=== PATIENT | female | born 1930 | race Caucasian/White ===

== ENCOUNTER 2017-01-12 16:00 | Emergency (ER) | payer MEDICARE, OTHER ==
[~2017-01-12] VITALS: Ht 165.1 cm; Wt 92.0 kg
[~2017-01-12 16:00] MED LIST: AMLO5TAB4 PO; ASPI-664 PO; ATOR20TA17 PO; Acetaminophen PO; BENZ-5 PO; CARV6.2545 PO; CLOP75TA27 PO; IPRA3AMP HHN; MECL-77 PO; PANT40TA4 PO; POTA8TAB2 PO; REPA2TAB6 PO; SPIR25TA NGT; SUCR1TAB27 PO; ZOLP5TAB PO
[2017-01-12 16:23] VITALS: Ht 165.1 cm; Wt 92.0 kg
[2017-01-12 17:29] LABS: ABNORMAL IP MESSAGE 1; BASOPHILS % 0.2 % (0.0-2.0); EOSINOPHILS # 0.1 10^3/ul (0.0-0.5); EOSINOPHILS % 2.5 % (0.0-7.0); HEMATOCRIT 30.6 % (37.0-47.0); HEMOGLOBIN 9.2 g/dl (12.0-16.0); LYMPHOCYTES # 0.6 10^3/ul (0.8-2.9); LYMPHOCYTES % 13.2 % (15.0-51.0); MEAN CORPUSCULAR HEMOGLOBIN 28.2 pg (29.0-33.0); MEAN CORPUSCULAR HGB CONC 30.1 g/dl (32.0-37.0); MEAN CORPUSCULAR VOLUME 93.9 fl (82.0-101.0); MEAN PLATELET VOLUME 11.9 fl (7.4-10.4); MONOCYTE # 0.3 10^3/ul (0.3-0.9); MONOCYTES % 6.6 % (0.0-11.0); NEUTROPHIL # 3.4 10^3/ul (1.6-7.5); PLATELET COUNT 126 10^3/UL (140-415); RED BLOOD COUNT 3.26 10^6/ul (4.20-5.40); RED CELL DISTRIBUTION WIDTH 15.9 % (11.5-14.5); WHITE BLOOD COUNT 4.4 10^3/ul (4.8-10.8)
[2017-01-12] MEDS ORDERED: HYDR-3671 PO (17:34)
[2017-01-12] MEDS ORDERED: ISOS20TA19 PO (17:35)
[2017-01-12] MEDS ORDERED: LEVO125T75 PO (17:35)
[2017-01-12] MEDS ORDERED: FURO40TA4 PO (17:36)
[2017-01-12] MEDS ORDERED: LINA5TAB PO (17:37)
[2017-01-12] MEDS ORDERED: ADV25050 INHALATION (17:37)
[2017-01-12] MEDS ORDERED: ERGO500037 PO (17:39)
[2017-01-12 17:43] LABS: POSITIVE DIFF @See below
[2017-01-12 17:44] LABS: ALBUMIN 3.5 g/dl (3.3-4.9); ALBUMIN/GLOBULIN RATIO 0.77; BILIRUBIN,INDIRECT 0.3 mg/dl (0-1.1); BILIRUBIN,TOTAL 0.3 mg/dl (0.2-1.3); CALCIUM 9.1 mg/dl (8.4-10.2); CREATININE 1.26 mg/dl (0.44-1.00); POTASSIUM 4.9 mmol/L (3.5-5.1)
[2017-01-12 18:15] LABS: INR 1.11; PROTIME 14.3 Sec (12.2-14.2); PT RATIO 1.1
[2017-01-12 18:16] LABS: PARTIAL THROMBOPLASTIN TIME 29.8 Sec (25.0-35.0)
[2017-01-12] MEDS ORDERED: LIDOCAINE 1% (MPF) 5 ML VIAL ONE (18:38)
[2017-01-12] MEDS ORDERED: ALBUMIN HUMAN 25% 100 ML IV ONE (20:00)
--- NOTE | 2017-01-12 21:03 | ERD ---
ER Documentation Chief Complaint Date/Time DATE: 01/12/17 TIME: 21:03 Chief Complaint BIB RA FROM HOME WITH C/O ABD PAIN HPI 86-year-old female with a history of CAD and liver disease with recurrent ascites, last had a paracentesis 1 month ago, presenting to the ER with complaints of abdominal distention and shortness of breath secondary to the abdominal distention. She only describes her abdominal discomfort as pressure but no pain. She denies any nausea, fever, chills, vomiting, diarrhea, or constipation. She is requesting a paracentesis which she thinks will help with her shortness of breath. She has no associated chest pain or diaphoresis ROS All systems reviewed and are negative except as per history of present illness. Medications Home Meds Active Scripts Aspirin* (Aspirin* EC) 81 Mg Tabec, 81 MG PO DAILY, #30 BOTTLE Prov:PAO FERGUSON MD 08/09/15 Reported Medications Ergocalciferol (Vitamin D2) (VITAMIN D2) 50,000 Unit Capsule, 22534 UNIT PO Q14D , CAP 01/12/17 Linagliptin (TRADJENTA) 5 Mg Tablet, 5 MG PO DAILY, TAB 01/12/17 Salmeterol Xinaf/Fluticasone* (Advair*) 250-50 Diskus Inhaler, 1 INH INHALATION BID, #1 INHALER 01/12/17 Furosemide* (Furosemide*) 40 Mg Tablet, 40 MG PO DAILY, TAB 01/12/17 Levothyroxine Sodium* (Levothyroxine Sodium*) 125 Mcg Tablet, 125 MCG PO BEFORE BREAKFAST, #30 TAB 01/12/17 Isosorbide Dinitrate* (Isosorbide Dinitrate*) 20 Mg Tablet, 20 MG PO TID, TAB 01/12/17 Hydralazine Hcl* (Hydralazine Hcl*) 25 Mg Tab, 25 MG PO TID, #90 TAB 01/12/17 Repaglinide* (Prandin*) 2 Mg Tablet, 2 MG PO TID AC MEALS, TAB 12/26/14 Amlodipine Besylate* (Norvasc*) 5 Mg Tablet, 5 MG PO DAILY 10/09/11 Carvedilol (Coreg) 6.25 Mg Tablet, 6.25 MG PO BID 10/09/11 Atorvastatin (Lipitor) 20 Mg Tablet, 20 MG PO DAILY 10/09/11 Discontinued Reported Medications Potassium Chloride* (Klor-Con*) 8 Meq Tablet.sa, 8 MEQ PO DAILY, TAB 12/26/14 Meclizine Hcl* (Meclizine Hcl*) 25 Mg Tablet, 25 MG PO DAILY Y for VERTIGO, TAB 12/26/14 Zolpidem Tartrate* (Ambien*) 5 Mg Tablet, 5 MG PO HS MAY REPEAT X 1 Y for INSOMNIA, TAB 12/26/14 Discontinued Scripts Sucralfate (Carafate) 1 Gm Tab, 1 GM PO QID, #60 TAB Prov:PAO FERGUSON MD 08/09/15 Clopidogrel Bisulfate (Clopidogrel) 75 Mg Tab, 75 MG PO DAILY, #30 TAB Prov:PAO FERGUSON MD 08/09/15 [Acetaminophen] 325 MG TAB No Conflict Check, 650 MG PO Q4H Y for PAIN AND OR ELEVATED TEMP, #90 TAB Prov:PAO FERGUSON MD 05/31/15 Benzonatate* (Benzonatate*) 100 Mg Cap, 200 MG PO TID, #60 CAP Prov:PAO FERGUSON MD 05/31/15 Pantoprazole* (Pantoprazole*) 40 Mg Tabec, 40 MG PO DAILY@06, #30 BOTTLE Prov:PAO FERUGSON MD 05/31/15 Spironolactone* (Aldactone*) 25 Mg Tab, 25 MG NGT DAILY, #30 TAB Prov:PAO FERGUSON MD 05/31/15 Ipratropium-Albuterol (Ipratropium-Albuterol) 3 Ml Nebu, 3 ML HHN Q4H RESP THERAPY Y for SHORTNESS OF BREATH, #90 BLIST PACK Prov:PAO FERGUSON MD 05/31/15 Allergies Allergies: Coded Allergies: No Known Allergy (Verified , 01/12/17) PMhx/Soc History of Surgery: Yes (pacemaker) Anesthesia Reaction: No Hx Neurological Disorder: Yes (Altered mental status) Hx Respiratory Disorders: No Hx Cardiac Disorders: Yes (HTN) Hx Psychiatric Problems: No Hx Miscellaneous Medical Probl: Yes (DM) Hx Alcohol Use: No Hx Substance Use: No Hx Tobacco Use: No Smoking Status: Never smoker FmHx Family History: No diabetes Physical Exam Vitals Vital Signs Date Time Temp Pulse Resp B/P Pulse Ox O2 Delivery O2 Flow Rate FiO2 01/12/17 21:12 98.3 76 20 149/54 19 Room Air 01/12/17 20:00 65 21 138/65 98 Room Air 01/12/17 19:00 65 15 146/61 98 Room Air 01/12/17 16:31 71 24 174/53 100 Room Air 01/12/17 16:23 98.0 87 18 174/53 100 Physical Exam Const: Well-appearing, very pleasant lady, in no apparent distress, nontoxic Head: Atraumatic Eyes: Normal Conjunctiva ENT: Normal External Ears, Nose and Mouth. Neck: Full range of motion..~ No meningismus. Resp: Clear to auscultation bilaterally Cardio: Regular rate and rhythm, no murmurs Abd: Soft, non tender. Significantly distended with fluid wave. Normal bowel sounds surgical abdominal scar is noted. Skin: No petechiae or rashes Back: No midline or flank tenderness Ext: No cyanosis, 1+ bilateral lower extremity edema. Neur: Awake and alert and oriented 3, no facial asymmetry, moving all extremities Psych: Normal Mood and Affect Result Diagram: 01/12/17 1715 01/12/17 1715 Results 24 hrs Laboratory Tests Test 01/12/17 17:15 White Blood Count 4.410^3/ul Red Blood Count 3.2610^6/ul Hemoglobin 9.2g/dl Hematocrit 30.6% Mean Corpuscular Volume 93.9fl Mean Corpuscular Hemoglobin 28.2pg Mean Corpuscular Hemoglobin Concent 30.1g/dl Red Cell Distribution Width 15.9% Platelet Count 95576^3/UL Mean Platelet Volume 11.9fl Neutrophils % 77.0% Lymphocytes % 13.2% Monocytes % 6.6% Eosinophils % 2.5% Basophils % 0.2% Nucleated Red Blood Cells % 0.0/100WBC Neutrophils # 3.410^3/ul Lymphocytes # 0.610^3/ul Monocytes # 0.310^3/ul Eosinophils # 0.110^3/ul Basophils # 0.010^3/ul Nucleated Red Blood Cells # 0.010^3/ul Prothrombin Time 14.3Sec Prothrombin Time Ratio 1.1 INR International Normalized Ratio 1.11 Activated Partial Thromboplast Time 29.8Sec Sodium Level 142mmol/L Potassium Level 4.9mmol/L Chloride Level 109mmol/L Carbon Dioxide Level 26mmol/L Anion Gap 12 Blood Urea Nitrogen 34mg/dl Creatinine 1.26mg/dl Glucose Level 129mg/dl Calcium Level 9.1mg/dl Total Bilirubin 0.3mg/dl Direct Bilirubin 0.00mg/dl Indirect Bilirubin 0.3mg/dl Aspartate Amino Transf (AST/SGOT) 20IU/L Alanine Aminotransferase (ALT/SGPT) 27IU/L Alkaline Phosphatase 184IU/L Total Protein 8.0g/dl Albumin 3.5g/dl Globulin 4.50g/dl Albumin/Globulin Ratio 0.77 Current Medications Medications (Trade) Dose Ordered Sig/Devorah Route PRN Reason Start Time Stop Time Status Last Admin Dose Admin Lidocaine 5 ml 5 ml STK-MED ONCE .ROUTE 01/12/17 18:38 01/12/17 18:39 DC Albumin Human (Albumin Human 25%) 100 ml @ 100 mls/hr ONCE ONCE IV 01/12/17 20:00 01/12/17 20:59 DC 01/12/17 19:58 Procedures/MDM Labs CBC: Leukopenia, anemia, thrombocytopenia CMP: Elevated BUN and creatinine, chronic Coags within normal limits MDM patient is presenting with ascites causing shortness of breath. Vitals are only notable for hypertension without evidence of hypertensive emergency. I do not suspect acute surgical abdomen or spontaneous bacterial peritonitis. Patient went to radiology to have a paracentesis. 8 L were removed. Patient had significant improvement of her symptoms. Albumin 25 g was given prior to discharge. Patient tolerated that well. She was advised to follow-up with her primary care doctor and return precautions were given. Departure Diagnosis: Primary Impression: Ascites Ascites type: other type Qualified Code: R18.8 - Other ascites Additional Impression: Dyspnea Dyspnea type: unspecified Qualified Code: R06.00 - Dyspnea, unspecified type Condition: Stable EKPAOLA BERGER MD Jan 12, 2017 21:03
[2017-01-12 21:12] VITALS: BP 149/54; PULSE 76; RESP 20; TEMP 98.3
--- NOTE | 2017-01-12 22:12 | RADRPT ---
PROCEDURE: Ultrasound guided paracentesis. CLINICAL INDICATION: Ascites and shortness of breath. COMPARISON: 08/06/2015. TECHNIQUE: The risks, benefits, and alternatives were explained to the patient and/or the patient's family, inc luding but not limited to bleeding, infection, pain, visceral or vascular damage, shock, and . The patient and/or the patient's family understood the risks and the alternatives and wished to pro ceed with the procedure. Informed written consent was obtained. A procedural time out was performed . The patient's name, date of , and procedure to be performed were verified. Utilizing ultrasound guidance, optimal location for entry to the peritoneal cavity was ascertained. The overlying skin was prepped and draped in the usual sterile fashion. Approximately 10 ml of 1% Xylocaine was injected locally for pain control. Using ultrasound guidance, an 8 [place] catheter wa s introduced into the peritoneal cavity in the right lower quadrant without difficulty. FINDINGS: Initial images demonstrate ascites. Approximately 8.0 liters of serous fluid was aspirated and disc arded. The patient tolerated the procedure well without complication. IMPRESSION: 1. Successful ultrasound-guided paracentesis. RPTAT: QQ .Wero Anton MD, Date Time Electronically viewed and signed by .Wero Anton MD, on 01/12/2017 22:12 .R/
== END 2017-01-12 21:12 | disposition home or self-care (01) ==
LOC: E/R 16:00
DX: R18.8 Other ascites (principal); R06.00 Dyspnea, unspecified; E11.9 Type 2 diabetes mellitus without complications; I10 Essential (primary) hypertension; Z95.0 Presence of cardiac pacemaker
CPT/HCPCS: 80053; 85025; 85610; 85730; 96374; 99285; P9047

== ENCOUNTER 2017-02-18 11:59 | Emergency (ER) | payer MEDICARE, OTHER ==
[~2017-02-18] VITALS: Ht 167.6 cm; Wt 70.0 kg
[~2017-02-18 11:59] MED LIST changes: +ADV25050 INHALATION; -Acetaminophen PO; -BENZ-5 PO; -CLOP75TA27 PO; +ERGO500037 PO; +FURO40TA4 PO; +HYDR-3671 PO; -IPRA3AMP HHN; +ISOS20TA19 PO; +LEVO125T75 PO; +LINA5TAB PO; -MECL-77 PO; -PANT40TA4 PO; -POTA8TAB2 PO; -SPIR25TA NGT; -SUCR1TAB27 PO; -ZOLP5TAB PO
[2017-02-18 12:05] VITALS: Ht 167.6 cm; Wt 70.0 kg
[2017-02-18] MEDS ORDERED: ONDANSETRON 4 MG INJ IV STA (12:17)
[2017-02-18] MEDS ORDERED: SOD CHLORIDE 0.9% 500 ML IV STA (12:17)
[2017-02-18] MEDS ORDERED: morphine 2 MG INJ ONE (12:55)
[2017-02-18 13:03] LABS: ABNORMAL IP MESSAGE 1; BASOPHILS % 0.2 % (0.0-2.0); EOSINOPHILS # 0.1 10^3/ul (0.0-0.5); EOSINOPHILS % 2.5 % (0.0-7.0); HEMATOCRIT 27.9 % (37.0-47.0); HEMOGLOBIN 8.2 g/dl (12.0-16.0); LYMPHOCYTES # 0.5 10^3/ul (0.8-2.9); LYMPHOCYTES % 12.3 % (15.0-51.0); MEAN CORPUSCULAR HEMOGLOBIN 27.2 pg (29.0-33.0); MEAN CORPUSCULAR HGB CONC 29.4 g/dl (32.0-37.0); MEAN CORPUSCULAR VOLUME 92.4 fl (82.0-101.0); MEAN PLATELET VOLUME 11.5 fl (7.4-10.4); MONOCYTE # 0.3 10^3/ul (0.3-0.9); MONOCYTES % 7.9 % (0.0-11.0); NEUTROPHIL # 3.1 10^3/ul (1.6-7.5); NEUTROPHILS % 76.9 % (39.0-77.0); PLATELET COUNT 120 10^3/UL (140-415); RED BLOOD COUNT 3.02 10^6/ul (4.20-5.40); RED CELL DISTRIBUTION WIDTH 16.4 % (11.5-14.5); WHITE BLOOD COUNT 4.1 10^3/ul (4.8-10.8)
[2017-02-18 13:05] LABS: POSITIVE DIFF @See below
[2017-02-18 13:20] LABS: INR 1.21; PROTIME 15.4 Sec (12.2-14.2); PT RATIO 1.2
[2017-02-18 13:21] LABS: PARTIAL THROMBOPLASTIN TIME 28.9 Sec (25.0-35.0)
[2017-02-18 13:22] LABS: ALBUMIN 2.9 g/dl (3.3-4.9); ALBUMIN/GLOBULIN RATIO 0.63; BILIRUBIN,INDIRECT 0.3 mg/dl (0-1.1); BILIRUBIN,TOTAL 0.3 mg/dl (0.2-1.3); CALCIUM 8.9 mg/dl (8.4-10.2); CREATININE 1.61 mg/dl (0.44-1.00); POTASSIUM 5.2 mmol/L (3.5-5.1); TOTAL PROTEIN 7.5 g/dl (6.1-8.1)
[2017-02-18] MEDS ORDERED: morphine 2 MG INJ IV ONE (13:30)
[2017-02-18 13:34] LABS: TROPONIN-I 0.042 ng/ml (0.00-0.12)
[2017-02-18] MEDS ORDERED: LIDOCAINE 1% (MPF) 5 ML VIAL ONE (14:49)
--- NOTE | 2017-02-18 15:40 | RADRPT ---
PROCEDURE: XR Chest. CLINICAL INDICATION: Abdominal pain. TECHNIQUE: Single frontal view. COMPARISON: 08/06/2015. FINDINGS: There is interstitial disease bilaterally consistent with pulmonary edema. There is mild atelectasis at the lung bases and low lung volumes. The heart is enlarged. Calcification is present in the aorta consistent with atherosclerosis. There are sternal wires and mediastinal clips. There is a left-sided dual lead permanent pacemaker. There is no pleural effusion. There is no pneumothorax. IMPRESSION: 1. Pulmonary edema. 2. Mild atelectasis at the lung bases. Low lung volumes. 3. Cardiomegaly. Atherosclerosis. 4. Previous median sternotomy. 5. Permanent pacemaker. RPTAT: QQ .Wero Anton MD, MD Date Time Electronically viewed and signed by .Wero Anton MD, MD on 02/18/2017 15:40 .R/
--- NOTE | 2017-02-18 16:00 | RADRPT ---
PROCEDURE: CT ABDOMEN AND PELVIS WITHOUT CONTRAST. CLINICAL INDICATION: Abdominal pain and distension TECHNIQUE: CT scan of the abdomen and pelvis without contrast was performed on a multidetector hig h-resolution CT scanner. The patient was scanned without intravenous contrast. Coronal and sagittal reformatted images were obtained from the axial source images. Images were reviewed on a high-resol [employer] PACS workstation. The total exam CTDI equals 21.6 mGy and the total exam DLP equals 1395 mGy-c m. One or more of the following dose reduction techniques were used: Automated exposure control. Adjustment of the mA and/or kV according to patient size. Use of iterative reconstruction technique. COMPARISON: None FINDINGS: CT abdomen: Lung bases are clear. Heart size is enlarged. There is no significant pericardial effusion. Hepatic morphology demonstrates slight nodular appearance of the borders of the liver. There is hete rogeneous appearance of the liver parenchyma. Gallbladder is not visualized. No evidence of intrahep atic or extrahepatic biliary dilatation. The spleen is enlarged. The pancreas appears to within normal limits. There is atherosclerotic calci fication of the splenic artery. Both adrenal glands are within normal limits. Both kidneys are atrophic. No evidence of obstruction or hydronephrosis. There is a left-sided renal cyst measuring 2.8 cm. The visualized GI tract demonstrates a small hiatal hernia and thickening of the living[place] of the distal esophagus. Normal caliber loops of small and large bowel noted. No evidence of bowel obstruction. T he appendix is within normal limits. There is a large amount of intra-abdominal and pelvic ascites. Atherosclerotic calcification of the aorta is identified. Several shoddy retroperitoneal lymph nodes are noted. CT pelvis: The bladder is collapsed. The uterus is atrophic. The rectosigmoid colon demonstrate diverticulosis. No significant pelvic lymphadenopathy. The visualized osseous structures demonstrates multilevel degenerative disease of the spine. Anterio r osteophytes are noted, suggestive of underlying diffuse idiopathic skeletal hyperostosis. IMPRESSION: 1. Large amount of intra-abdominal mass pelvic ascites. 2. No evidence of bowel obstruction. Sigmoid colon diverticulosis. 3. Small hiatal hernia. Thickening of the living[place] of the distal esophagus, cannot exclude underlying e sophagitis. 4. Heterogeneous appearance of the liver, with slight nodular appearance of the borders of the liver . Findings are suggestive of underlying hepatic parenchymal disease. Possible cirrhosis. 5. Splenomegaly. 6. Both kidneys are atrophic. No evidence of obstruction or hydronephrosis. Left-sided renal cyst. 7. Diffuse atherosclerotic calcifications. 8. Diffuse idiopathic skeletal hyperostosis. RPTAT: AAPP Physician Chiquita Date Time Electronically viewed and signed by Lisa Cyr Physician on 02/18/2017 16:00 DILCIA/
--- NOTE | 2017-02-18 16:41 | RADRPT ---
PROCEDURE: Ultrasound guided paracentesis. CLINICAL INDICATION: Ascites and shortness of breath. COMPARISON: No prior studies are available for comparison. TECHNIQUE: The risks, benefits, and alternatives were explained to the patient and/or the patient's family, inc luding but not limited to bleeding, infection, pain, visceral or vascular damage, shock, and . The patient and/or the patient's family understood the risks and the alternatives and wished to pro ceed with the procedure. Informed written consent was obtained. A procedural time out was performed . The patient's name, date of , and procedure to be performed were verified. Utilizing ultrasound guidance, optimal location for entry to the peritoneal cavity was ascertained. The overlying skin was prepped and draped in the usual sterile fashion. Approximately 10 ml of 1% Xylocaine was injected locally for pain control. Using ultrasound guidance, an 8 [place] catheter wa s introduced into the peritoneal cavity in the right lower quadrant without difficulty. FINDINGS: Initial images demonstrate ascites. Approximately 10.0 liters of serous fluid was aspirated and dis carded. The patient tolerated the procedure well without complication. IMPRESSION: 1. Successful ultrasound-guided paracentesis. RPTAT: QQ .Wero Anton MD, Date Time Electronically viewed and signed by .Wero Anton MD, on 02/18/2017 16:41 .R/
[2017-02-18 16:58] VITALS: BP 114/50; PULSE 71; RESP 17
--- NOTE | 2017-02-18 17:18 | ERD ---
ER Documentation Chief Complaint Chief Complaint BIB RA FOR EVAL OF SWELLING OF ABD HPI 86-year-old female is presenting for generalized swelling of her abdomen causing generalized pain. She is also having shortness of breath trouble breathing worse when she is laying down. Denies any chest pain or shortness of breath. She has not had any fevers and chills lately. Denies constipation or diarrhea. She does have a history of liver failure needing paracenteses. ROS All systems reviewed and are negative except as per history of present illness. Medications Home Meds Active Scripts Aspirin* (Aspirin* EC) 81 Mg Tabec, 81 MG PO DAILY, #30 BOTTLE Prov:PAO FERGUSON MD 08/09/15 Reported Medications Ergocalciferol (Vitamin D2) (VITAMIN D2) 50,000 Unit Capsule, 59229 UNIT PO Q14D , CAP 01/12/17 Linagliptin (TRADJENTA) 5 Mg Tablet, 5 MG PO DAILY, TAB 01/12/17 Salmeterol Xinaf/Fluticasone* (Advair*) 250-50 Diskus Inhaler, 1 INH INHALATION BID, #1 INHALER 01/12/17 Furosemide* (Furosemide*) 40 Mg Tablet, 40 MG PO DAILY, TAB 01/12/17 Levothyroxine Sodium* (Levothyroxine Sodium*) 125 Mcg Tablet, 125 MCG PO BEFORE BREAKFAST, #30 TAB 01/12/17 Isosorbide Dinitrate* (Isosorbide Dinitrate*) 20 Mg Tablet, 20 MG PO TID, TAB 01/12/17 Hydralazine Hcl* (Hydralazine Hcl*) 25 Mg Tab, 25 MG PO TID, #90 TAB 01/12/17 Repaglinide* (Prandin*) 2 Mg Tablet, 2 MG PO TID AC MEALS, TAB 12/26/14 Amlodipine Besylate* (Norvasc*) 5 Mg Tablet, 5 MG PO DAILY 10/09/11 Carvedilol (Coreg) 6.25 Mg Tablet, 6.25 MG PO BID 10/09/11 Atorvastatin (Lipitor) 20 Mg Tablet, 20 MG PO DAILY 10/09/11 Allergies Allergies: Coded Allergies: No Known Allergy (Verified , 01/12/17) PMhx/Soc History of Surgery: Yes (3XCABG, PACEMAKER, CAROTID ENDARTERECTOMY) Anesthesia Reaction: No Hx Neurological Disorder: Yes (Altered mental status) Hx Respiratory Disorders: No Hx Cardiac Disorders: Yes (HTN) Hx Psychiatric Problems: No Hx Miscellaneous Medical Probl: Yes (DM, CIRRHOSIS , ASCITES ) Hx Alcohol Use: No Hx Substance Use: No Hx Tobacco Use: No Smoking Status: Never smoker Physical Exam Vitals Vital Signs Date Time Temp Pulse Resp B/P Pulse Ox O2 Delivery O2 Flow Rate FiO2 02/18/17 16:58 71 17 114/50 100 Room Air 02/18/17 15:30 70 17 120/78 100 Room Air 02/18/17 12:05 98.3 69 18 143/69 100 Physical Exam Const: [] Mild to moderate distress. Head: Atraumatic Eyes: Normal Conjunctiva ENT: Normal External Ears, Nose and Mouth. Neck: Full range of motion..~ No meningismus. Resp: Clear to auscultation bilaterally, bibasilar decreased breath sounds and rales. Cardio: Regular rate and rhythm, no murmurs Abd: Soft, mild generalized tenderness with profound distention and positive fluid wave,. Normal bowel sounds Skin: No petechiae or rashes Back: No midline or flank tenderness Ext: No cyanosis, trace bilateral lower extremity edema Neur: Awake and alert and oriented 3, no focal deficits Psych: Normal Mood and Affect Result Diagram: 02/18/17 1250 02/18/17 1250 Results 24 hrs Laboratory Tests Test 02/18/17 12:50 White Blood Count 4.110^3/ul Red Blood Count 3.0210^6/ul Hemoglobin 8.2g/dl Hematocrit 27.9% Mean Corpuscular Volume 92.4fl Mean Corpuscular Hemoglobin 27.2pg Mean Corpuscular Hemoglobin Concent 29.4g/dl Red Cell Distribution Width 16.4% Platelet Count 07103^3/UL Mean Platelet Volume 11.5fl Neutrophils % 76.9% Lymphocytes % 12.3% Monocytes % 7.9% Eosinophils % 2.5% Basophils % 0.2% Nucleated Red Blood Cells % 0.0/100WBC Neutrophils # 3.110^3/ul Lymphocytes # 0.510^3/ul Monocytes # 0.310^3/ul Eosinophils # 0.110^3/ul Basophils # 0.010^3/ul Nucleated Red Blood Cells # 0.010^3/ul Prothrombin Time 15.4Sec Prothrombin Time Ratio 1.2 INR International Normalized Ratio 1.21 Activated Partial Thromboplast Time 28.9Sec Sodium Level 140mmol/L Potassium Level 5.2mmol/L Chloride Level 110mmol/L Carbon Dioxide Level 25mmol/L Anion Gap 10 Blood Urea Nitrogen 51mg/dl Creatinine 1.61mg/dl Glucose Level 137mg/dl Lactic Acid Level 0.7mmol/L Calcium Level 8.9mg/dl Total Bilirubin 0.3mg/dl Direct Bilirubin 0.00mg/dl Indirect Bilirubin 0.3mg/dl Aspartate Amino Transf (AST/SGOT) 18IU/L Alanine Aminotransferase (ALT/SGPT) 21IU/L Alkaline Phosphatase 121IU/L Troponin I 0.042ng/ml Total Protein 7.5g/dl Albumin 2.9g/dl Globulin 4.60g/dl Albumin/Globulin Ratio 0.63 Lipase 181U/L Current Medications Medications (Trade) Dose Ordered Sig/Devorah Route PRN Reason Start Time Stop Time Status Last Admin Dose Admin Sodium Chloride (NS) 500 ml @ 500 mls/hr Q1H STAT IV 02/18/17 12:17 02/18/17 13:16 DC 02/18/17 13:13 Ondansetron HCl (Zofran Inj) 4 mg ONCE STAT IV 02/18/17 12:17 02/18/17 12:20 DC 02/18/17 13:13 Morphine Sulfate (morphine) 2 mg STK-MED ONCE .ROUTE 02/18/17 12:55 02/18/17 12:56 DC Morphine Sulfate (morphine) 2 mg ONCE ONCE IV 02/18/17 13:30 02/18/17 13:31 DC 02/18/17 13:39 Lidocaine (Xylocaine 1% (Mpf)) 5 ml STK-MED ONCE .ROUTE 02/18/17 14:49 02/18/17 14:50 DC 02/18/17 14:50 Procedures/MDM Fluid overload with portal hypertension deficits being the source. Patient did have evidence of mild congestive heart failure because of the overloaded fluid. After paracentesis which removed 10 L of fluid done by interventional radiology, patient's symptoms had completely resolved. She no longer had shortness of breath or abdominal pain. Patient and her who is present at the bedside did not want to be in the hospital any longer and request to discharge medially after. She been given Zofran and 2 mg of morphine which helped with her pain. Abdominal CAT scan which I ordered because she had not had one since 2011, showed a large volume ascites without any other emergent acute processes. Vital signs are stable. Because of concerns of congestive heart failure cardiac workup performed shows no signs of acute ischemia. Mild renal insufficiency consistent with prior values. Pancytopenia consistent with liver disease consistent with prior values. Because of her wishes I will discharge her with follow-up with Dr. Ortez with the next day or 2 as well as strict return precautions to the emergency room. I am also discharging her with a dose of Kayexalate for her mild hyperkalemia. EKG interpretation: Paced rhythm rate of 65, no further analysis possible. 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 CT abdomen pelvis interpretation: Significant ascites with atrophic kidneys and hiatal hernia, I see no bowel obstruction, no free air, no fractures Departure Diagnosis: Primary Impression: Dyspnea Additional Impressions: Ascites Abdominal pain Fluid overload Condition: Stable Patient Instructions: Abdominal Pain, Ascites Additional Instructions: Call your primary care doctor TOMORROW for an appointment during the next 1-2 days.See the doctor sooner or return here if your condition worsens before your appointment time. VICTOR MANUEL JOHNSTON DO Feb 18, 2017 17:18
[2017-02-18] MEDS ORDERED: SODI15OR8 PO (17:19)
== END 2017-02-18 18:00 | disposition home or self-care (01) ==
LOC: E/R 11:59
DX: R18.8 Other ascites (principal); I10 Essential (primary) hypertension; E11.9 Type 2 diabetes mellitus without complications; Z79.82 Long term (current) use of aspirin; Z79.84 Long term (current) use of oral hypoglycemic drugs; Z95.0 Presence of cardiac pacemaker
CPT/HCPCS: 36415; 71010; 74176; 80053; 83605; 83690; 84484; 85025; 85610; 85730; 93005; 96374; 96375; 99285; J2270; J2405; J7040

== ENCOUNTER 2017-04-05 19:24 | Inpatient (IN) | payer MEDICARE, OTHER ==
[~2017-04-05] VITALS: Ht 162.6 cm; Wt 72.0 kg
[~2017-04-05 19:24] MED LIST changes: +SODI15OR8 PO
--- NOTE | 2017-04-05 19:33 | ERD ---
ER Documentation Chief Complaint Chief Complaint feeling cold x 3 days, states has been checking temp; no fevers HPI 86-year-old woman brought in by EMS from home for feeling weak for the last 3 days, she has had chills as well. She denies cough, no chest pain or shortness of breath, no vomiting or diarrhea, no blood per rectum or melena. HPI was limited although was supplemented by speaking to the patient, EMS, and reviewing past medical history. ROS All systems reviewed and are negative except as per history of present illness. Medications Home Meds Active Scripts Sodium Polystyrene Sulfonate* (Kayexalate*) 15 Gm/60 Ml Susp, 15 GM PO ONCE for 1 Day, #20 ML Prov:VICTOR MANUEL JOHNSTON DO 02/18/17 Aspirin* (Aspirin* EC) 81 Mg Tabec, 81 MG PO DAILY, #30 BOTTLE Prov:PAO ZHENG MD 08/09/15 Reported Medications Ergocalciferol (Vitamin D2) (VITAMIN D2) 50,000 Unit Capsule, 76490 UNIT PO Q14D , CAP 01/12/17 Linagliptin (TRADJENTA) 5 Mg Tablet, 5 MG PO DAILY, TAB 01/12/17 Salmeterol Xinaf/Fluticasone* (Advair*) 250-50 Diskus Inhaler, 1 INH INHALATION BID, #1 INHALER 01/12/17 Furosemide* (Furosemide*) 40 Mg Tablet, 40 MG PO DAILY, TAB 01/12/17 Levothyroxine Sodium* (Levothyroxine Sodium*) 125 Mcg Tablet, 125 MCG PO BEFORE BREAKFAST, #30 TAB 01/12/17 Isosorbide Dinitrate* (Isosorbide Dinitrate*) 20 Mg Tablet, 20 MG PO TID, TAB 01/12/17 Hydralazine Hcl* (Hydralazine Hcl*) 25 Mg Tab, 25 MG PO TID, #90 TAB 01/12/17 Repaglinide* (Prandin*) 2 Mg Tablet, 2 MG PO TID AC MEALS, TAB 12/26/14 Amlodipine Besylate* (Norvasc*) 5 Mg Tablet, 5 MG PO DAILY 10/09/11 Carvedilol (Coreg) 6.25 Mg Tablet, 6.25 MG PO BID 10/09/11 Atorvastatin (Lipitor) 20 Mg Tablet, 20 MG PO DAILY 10/09/11 Allergies Allergies: Coded Allergies: No Known Allergy (Verified , 01/12/17) PMhx/Soc Kidney disease, hypertension, obesity, cirrhosis with recurrent ascites, CAD with prior CABG, atrial fibrillation, peripheral arterial disease, diabetes mellitus type 2, bradycardia, pacemaker, diverticulosis, anemia, gastritis, hemorrhoids History of Surgery: Yes (3XCABG, PACEMAKER, CAROTID ENDARTERECTOMY) Anesthesia Reaction: No Hx Neurological Disorder: Yes (Altered mental status) Hx Respiratory Disorders: No Hx Cardiac Disorders: Yes (HTN) Hx Psychiatric Problems: No Hx Miscellaneous Medical Probl: Yes (DM, CIRRHOSIS , ASCITES ) Hx Alcohol Use: No Hx Substance Use: No Hx Tobacco Use: No FmHx Family History: No diabetes Physical Exam Vitals Vital Signs Date Time Temp Pulse Resp B/P Pulse Ox O2 Delivery O2 Flow Rate FiO2 04/05/17 19:27 102.0 96 18 152/67 96 Physical Exam GENERAL: Elderly, chronically debilitated woman, febrile HEENT: Moist mucous membranes, pink conjunctiva, no cervical deformities NEURO: Alert and oriented 2 no focal deficits or facial asymmetry CARDIAC: Regular rate and rhythm, no murmurs rubs or gallops LUNGS: Clear bilaterally no wheezing crackles or stridor ABDOMEN: Soft nontender, no guarding, no rigidity, no rebound, no psoas sign no obturator sign. Normoactive bowel sounds SKIN: Warm and dry to touch, no abrasions, contusions, or hematomas, no lacerations, no ecchymosis, no target lesions, and without ulcers EXTREMITIES: No clubbing cyanosis or edema, calves are bilaterally symmetrical, no Homans sign, no popliteal cord sign. Distal pulses equal and bilateral PSYCH: Normal affect without agitation or irritability Result Diagram: 04/05/17192904/05/171929 Results 24 hrs Laboratory Tests Test 04/05/17 19:30 04/05/17 19:46 White Blood Count 15.510^3/ul Red Blood Count 3.7210^6/ul Hemoglobin 9.7g/dl Hematocrit 33.4% Mean Corpuscular Volume 89.8fl Mean Corpuscular Hemoglobin 26.1pg Mean Corpuscular Hemoglobin Concent 29.0g/dl Red Cell Distribution Width 17.0% Platelet Count 43075^3/UL Mean Platelet Volume 11.6fl Neutrophils % 87.6% Lymphocytes % 7.0% Monocytes % 4.1% Eosinophils % 0.6% Basophils % 0.2% Nucleated Red Blood Cells % 0.0/100WBC Neutrophils # 13.610^3/ul Lymphocytes # 1.110^3/ul Monocytes # 0.610^3/ul Eosinophils # 0.110^3/ul Basophils # 0.010^3/ul Nucleated Red Blood Cells # 0.010^3/ul Prothrombin Time 14.7Sec Prothrombin Time Ratio 1.1 INR International Normalized Ratio 1.13 Activated Partial Thromboplast Time 27.9Sec Sodium Level 141mmol/L Potassium Level 4.8mmol/L Chloride Level 105mmol/L Carbon Dioxide Level 23mmol/L Anion Gap 18 Blood Urea Nitrogen 33mg/dl Creatinine 1.40mg/dl Glucose Level 152mg/dl Lactic Acid Level 3.3mmol/L Calcium Level 9.5mg/dl Total Bilirubin 0.6mg/dl Direct Bilirubin 0.00mg/dl Indirect Bilirubin 0.6mg/dl Aspartate Amino Transf (AST/SGOT) 17IU/L Alanine Aminotransferase (ALT/SGPT) 21IU/L Alkaline Phosphatase 153IU/L Ammonia 12umol/l Troponin I 0.033ng/ml Total Protein 8.5g/dl Albumin 3.7g/dl Globulin 4.80g/dl Albumin/Globulin Ratio 0.77 Lipase 143U/L Urine Color YELLOW Urine Clarity CLEAR Urine pH 5.0 Urine Specific [place] 1.008 Urine Ketones NEGATIVEmg/dL Urine Nitrite NEGATIVEmg/dL Urine Bilirubin NEGATIVEmg/dL Urine Urobilinogen NEGATIVEmg/dL Urine Leukocyte Esterase NEGATIVELeu/ul Urine Microscopic RBC 8/HPF Urine Microscopic WBC 4/HPF Urine Bacteria MANY/HPF Urine Hemoglobin 1+mg/dL Urine Glucose NEGATIVEmg/dL Urine Total Protein NEGATIVEmg/dl Current Medications Medications (Trade) Dose Ordered Sig/Devorah Route PRN Reason Start Time Stop Time Status Last Admin Dose Admin Sodium Chloride (NS) 2,500 ml BOLUS OVER 2 HOURS STAT IV* 04/05/17 19:41 04/05/17 19:44 DC 04/05/17 20:20 Ibuprofen 600 mg 600 mg ONCE ONCE PO 04/05/17 20:00 04/05/17 20:01 DC 04/05/17 20:20 Ceftriaxone Sodium (Rocephin) 50 ml @ 100 mls/hr ONCE ONCE IVPB 04/05/17 20:00 04/05/17 20:29 DC 04/05/17 20:20 Procedures/MDM IV line was established patient was placed on nurse monitoring rhythm strip revealed a sinus tachycardia at 100 bpm with upright P and T waves. Patient was febrile, Figueroa catheter was placed, blood and urine cultures have been ordered results are pending and I will follow-up. One AP view of the chest performed, read by me reveals no acute infiltrates, normal mediastinum, sharp costophrenic and cardiac borders, no air under the diaphragm. Otherwise unremarkable chest x-ray. EKG performed, read by me: Atrial fibrillation at 97 bpm, normal axis, right ventricular conduction delay with a QRS duration of 106 ms, no concerning ST elevations or depressions noted. CBC reveals a leukocytosis of 16 and mild anemia with a hemoglobin of 9.7, electrolytes revealed dehydration with a BUN/creatinine of 33/1.4, liver function tests normal, troponin negative. Urine analysis was positive for infection with bacteria and elevated urine WBCs. Lactic acid elevated at 3.3, repeat lactic acid 1.4. Ammonia level was low. I treated the patient here with ceftriaxone 1 g IV, vancomycin deferred to PMD if indicated later. I do not think she will benefit any more from vancomycin, and feel her elevated lactic acid was due to initial dehydration. Patient's infectious symptoms have not stabilized and the patient is at risk of rapid decompensation. The patient will be admitted for careful hydration, antibiotic therapy, and infectious source control. Severe Sepsis Assessment: Infectious Source: UTI Severe Sepsis Managment: Blood Cultures X 2 before broad spectrum antibiotics initiated within 3 hours of recognition. 30 ml/kg NS bolus Completed Initial Lactate: 3.3 Repeat Lactate low Critical Care: Time: 55 minutes, this was time separate from other billable procedures Treatments/Evaluations: Emergent fluid management, while maintaining close respiratory support. Immediate broad spectrum antibiotic therapy. Simultaneous assessment for possible sources in order to direct therapy. Consideration for invasive and chemical support to prevent respiratory or cardiac collapse. Septic Shock Assessment (1 hour post 30 ml/kg fluid bolus): Hypotension (SBP < 90 or 40 mmHg drop, MAP < 65): No Lactic acid > 4.0 No Perfusion Reassessment for Septic Shock: Temp temp 99.9, pulse 80 bpm, respiratory rate 18 breaths per minute, BP 120/80 , oxygen saturation 98% Heart Exam: Regular rate rhythm Lung Exam: No Crackles Capillary Refill: Less than 2 seconds Peripheral Pulses: Radially present Skin: Pain, hot and dry Hypotensive Treatment (not required for isolated lactic acid elevation): Comfort Care: No Central LIne: Not indicated Vasopressor started: Not indicated I considered further perfusion assessment with CVP measurement, SCVO2, bedside ultrasound volume assessment, passive leg raise, trial of further fluid bolus. And preceded with IV hydration and IV antibiotic therapy Accepting Care Team: Current data and ongoing care discussed. Time: Time of admission Primary Provider: Dr. Zheng Consulting: Infectious disease Outstanding Data: none Departure Diagnosis: Primary Impression: Sepsis Sepsis type: sepsis due to unspecified organism Qualified Code: A41.9 - Sepsis, due to unspecified organism Additional Impressions: UTI (urinary tract infection) Urinary tract infection type: acute cystitis Hematuria presence: without hematuria Qualified Code: N30.00 - Acute cystitis without hematuria Dehydration Condition: AGATHA Del Toro MD Apr 05, 2017 19:33
[2017-04-05] MEDS ORDERED: SODIUM CHLORIDE 0.9% 1L BAG IV* STA (19:41)
[2017-04-05] MEDS ORDERED: IBUPROFEN 600 MG TAB PO ONE (20:00)
[2017-04-05] MEDS ORDERED: CEFTRIAXONE 1 GM/50 ML (PMX) 50 ML IVPB ONE (20:00)
[2017-04-05 20:09] LABS: BASOPHILS % 0.2 % (0.0-2.0); EOSINOPHILS # 0.1 10^3/ul (0.0-0.5); EOSINOPHILS % 0.6 % (0.0-7.0); HEMATOCRIT 33.4 % (37.0-47.0); HEMOGLOBIN 9.7 g/dl (12.0-16.0); LYMPHOCYTES # 1.1 10^3/ul (0.8-2.9); MEAN CORPUSCULAR HEMOGLOBIN 26.1 pg (29.0-33.0); MEAN CORPUSCULAR VOLUME 89.8 fl (82.0-101.0); MEAN PLATELET VOLUME 11.6 fl (7.4-10.4); MONOCYTE # 0.6 10^3/ul (0.3-0.9); MONOCYTES % 4.1 % (0.0-11.0); NEUTROPHIL # 13.6 10^3/ul (1.6-7.5); NEUTROPHILS % 87.6 % (39.0-77.0); PLATELET COUNT 219 10^3/UL (140-415); RED BLOOD COUNT 3.72 10^6/ul (4.20-5.40); WHITE BLOOD COUNT 15.5 10^3/ul (4.8-10.8)
[2017-04-05 20:20] LABS: ALBUMIN 3.7 g/dl (3.3-4.9); ALBUMIN/GLOBULIN RATIO 0.77; BILIRUBIN,INDIRECT 0.6 mg/dl (0-1.1); BILIRUBIN,TOTAL 0.6 mg/dl (0.2-1.3); CALCIUM 9.5 mg/dl (8.4-10.2); CREATININE 1.4 mg/dl (0.44-1.00); POTASSIUM 4.8 mmol/L (3.5-5.1); TOTAL PROTEIN 8.5 g/dl (6.1-8.1)
[2017-04-05 20:21] LABS: INR 1.13; PROTIME 14.7 Sec (11.9-14.9); PT RATIO 1.1
[2017-04-05 20:22] LABS: ADD UMIC YES; UR ASCORBIC ACID NEGATIVE (NEGATIVE); UR BACTERIA MANY /HPF (NONE SEEN); UR BILIRUBIN (Dip) NEGATIVE (NEGATIVE); UR BLOOD (Dip) 1+ mg/dL (NEGATIVE); UR CLARITY CLEAR (CLEAR); UR COLOR YELLOW (YELLOW); UR GLUCOSE (Dip) NEGATIVE (NEGATIVE); UR KETONES (Dip) NEGATIVE (NEGATIVE); UR LEUKOCYTE ESTERASE (Dip) NEGATIVE Leu/ul (NEGATIVE); UR NITRITE (Dip) NEGATIVE (NEGATIVE); UR RBC 8 /HPF (0-5); UR SPECIFIC GRAVITY (Dip) 1.008 (1.003-1.030); UR TOTAL PROTEIN (Dip) NEGATIVE (NEGATIVE); UR UROBILINOGEN (Dip) NEGATIVE (NEGATIVE)
--- NOTE | 2017-04-05 20:36 | RADRPT ---
PROCEDURE: XR Chest. CLINICAL INDICATION: Sepsis. TECHNIQUE: Single frontal view of the chest was obtained. COMPARISON: 02/18/2017. FINDINGS: The cardiomediastinal silhouette demonstrates enlargement of the cardiac silhouette. There are aorti c calcifications. Postsurgical changes of a CABG. There is a left cardiac device. There is bilateral interstitial prominence, likely representing pulmonary vascular congestion. No pleural effusion is seen. No definite pneumothorax. No acute osseous abnormality. IMPRESSION: 1. Cardiomegaly with pulmonary vascular congestion. Prior CABG. RPTAT: [facility] Physician Gretchen Date Time Electronically viewed and signed by Michi Carreon Physician on 04/05/2017 20:35 PH/
[2017-04-05 20:37] LABS: TROPONIN-I 0.033 ng/ml (0.00-0.12)
[2017-04-05 20:51] LABS: LACTIC ACID 3.3 mmol/L (0.5-2.0)
[2017-04-05 20:52] LABS: PARTIAL THROMBOPLASTIN TIME 27.9 Sec (25.0-35.0)
[2017-04-05 21:36] VITALS: TEMP 99
--- NOTE | 2017-04-05 22:34 | HP ---
Date/Time of Note Date/Time of Note DATE: 04/05/17 TIME: 22:30 Assessment/Plan VTE Prophylaxis VTE Prophylaxis Intervention: ambulation VTE Contraindication Reason: peripheral vascular disease Lines/Catheters Central line still needed: No Urinary Cath still in place: No Reason Cath still needed: urinary retention Assessment/Plan Assessment/Plan 1. Fever and chills, most probably secondary to urinary tract infection. Levaquin was started until throat cultures are back. Chest x-ray negative. 2. Anemia of chronic disease. Anemia workup will be done. 3. Diabetes type 2 better controlled. Will just follow. Accu-Chek every 6 for 24 hours and then decide to be more active or not. 4. Gastroesophageal reflux disease. She is doing fine on Protonix, will continue. 5. Sepsis- serial lactic acid levels- 3.7 6. History of recurrent ERCPs. 7. Memory impairment. 8. Urinary incontinence with hematuria and uti 9. Status post CABG. 10. Morbid obesity. 11. Status post left-sided carotid endarterectomy. 12.Hypertension. Currently normotensive, currently on hypertensive medications. Carvedilol and Norvasc will be continued. 13.Ascitis 14.Pannus 15.ALOC on and off 16.Nausea and vomiting 17.UTI-Awaiting the culture results. Cont'd Hospitalization Reason: sepsis HPI/ROS Admit Date/Time Admit Date/Time Apr 05, 2017 at 21:03 Hx of Present Illness f/c x 2 days with n/v getting worse today. Unable to eat and to drink. Now with severe thirst. ROS Subjective hx not possible: pt critical Constitutional: chills, diaphoresis, disoriented, fatigue, febrile, nausea, poor po, weight change, No improved, No no complaints, No other Eyes: redness, No discharge, No no complaints, No other, No pain, No visual change ENT: congestion, dysphagia, sore throat, No bleeding, No discharge, No no complaints, No other, No pain Respiratory: cough, pleuritic pain, shortness of breath, sputum, No no complaints, No other, No pain, No wheezing Cardiovascular: edema, lightheadedness, orthopenea, palpitations, paroxysmal nocturnal dyspnea, No chest pain, No no complaints, No other Gastrointestinal: blood, constipation, decreased appetite, flatus, nausea, passing stool, vomiting, No diarrhea, No no complaints, No other, No pain Genitourinary: discharge, dysuria, flank pain, No bleeding, No hematuria, No no complaints, No other Musculoskeletal: back pain, bone/joint pain, neck pain, restricted range of motion, No no complaints, No other, No swelling Skin: bruising, erythema, pruritis, rash, skin lesions, No laceration, No no complaints, No other Neurologic: confusion, dizziness, headache, syncope, No focal-weakness, No no complaints, No other, No seizure Endocrine: dry skin, polydypsia, temp intolerance, weight change Lymphatic: adenopathy, tender nodes, No lymphadema, No no complaints, No other Psychological: anxiety, confusion, depression, No nl mood/affect, No no complaints, No other, No suicidal PMH/Family/Social Past Medical History Medical History: angina, congestive heart failure, coronary artery disease, deep vein thrombosis, diabetes, gallstones ( s/p cholecystectomy.) Past Surgical History Past Surgical Hx: angioplasty, appendectomy, cholecystectomy, coronary bypass surgery, endoscopy, other (s/p carotid endarterectomy.) Family History Significant Family History: COPD, diabetes, hypertension, lung disease, vascular disease Social History Alcohol Use: none Smoking Status: Never smoker Drug Use: none Exam/Review of Systems Vital Signs Vitals Vital Signs Date Time Temp Pulse Resp B/P Pulse Ox O2 Delivery O2 Flow Rate FiO2 04/05/17 21:36 99.0 79 22 102/79 99 Room Air Exam Constitutional: alert, distress, frail, oriented, well developed, No non-verbal, No other Psych: anxiety, confusion, depression, No nl mood/affect, No no complaints, No other, No suicidal Head: atraumatic, normocephalic, No hematomas, No lacerations, No other Eyes: EOMI, PERRL (s/p cataractectomy.), nl lids, No fundi, disc, No icteric, No nl conjunctiva, No nl sclera, No other ENMT: nl external ears & nose, nl nasal mucosa & septum, No intubated, No mucosa pink and moist, No nl lips & teeth, No other, No tympanic membranes Neck: bruits, jvd, nuchal rigidity, supple, No masses, No non-tender, No other, No thyromegaly Respiratory: congested cough, crackles/rales, diminished breath sounds, normal air movement, No clear to auscultation, No intercostal retraction, No labored breathing, No other, No respirations, No tactile fremitus, No wheezing Cardiovascular: bruits, edema, jugular venous distention (JVD), murmurs/extra sounds, systolic murmur Gastrointestinal: ascites, bowel sounds, distended, hepatomegaly, soft, surgical scars Genitourinary - Female: nl adnexae, nl external genitalia, No CMT, No CVA tenderness, No other, No uterus Musculoskeletal: joint tenderness, muscle tone, muscle weakness, range of motion Extremities: cyanosis, edema, other (s/p left leg venectomy.decreased over upper extremities.), pitting pedal edema Neurological: [employer] II-XII intact (decreased hearing.), DTR's symmetric, confused Skin: ecchymosis, laceration Labs Result Diagram: 04/05/17192904/05/171929 PAO FERGUSON MD Apr 05, 2017 22:34
[2017-04-05 22:55] VITALS: Ht 162.6 cm; Wt 72.0 kg
[2017-04-05] MEDS ORDERED: ERGOCALCIFEROL 50,000 UNIT CAP PO SCH (23:00)
[2017-04-05] MEDS: NA POLYST SULFON 15 GM/60 ML BTL PO SCH ×2 (23:00→23:41)
[2017-04-05] MEDS ORDERED: LEVOFLOXACIN 500MG/D5W (PMX) 100 ML IVPB SCH (23:00)
[2017-04-05 23:20] VITALS: BP 124/80; RESP 18
[2017-04-05] MEDS ORDERED: GLUCOSE GEL 15 GRAM TUBE PO PRN ×2 (23:30)
[2017-04-05] MEDS ORDERED: ONDANSETRON 4 MG INJ IV PRN (23:30)
[2017-04-05] MEDS ORDERED: GLUCAGON 1 MG INJ IM PRN (23:30)
[2017-04-05] MEDS ORDERED: GLUCOSE GEL 15 GRAM TUBE BUCCAL PRN (23:30)
[2017-04-05] MEDS: SALMETEROL/FLUTICASONE 250/50 INHA INH SCH (23:44)
[2017-04-06] VITALS (12 sets, daily range): BP systolic 96–124; BP diastolic 51–71; PULSE 63–73; RESP 16–20
[2017-04-06] MEDS ORDERED: INSULIN ASPART [NOVOLOG] 3 ML PEN SC SCH
[2017-04-06] MEDS: LEVOTHYROXINE 125 MCG TAB PO SCH (06:41)
[2017-04-06] MEDS: PANTOPRAZOLE 40 MG INJ IV SCH (06:41)
[2017-04-06 06:49] LABS: ABNORMAL IP MESSAGE 1; BASOPHILS % 0.1 % (0.0-2.0); EOSINOPHILS % 0.1 % (0.0-7.0); HEMATOCRIT 24.6 % (37.0-47.0); HEMOGLOBIN 7.4 g/dl (12.0-16.0); LYMPHOCYTES # 0.3 10^3/ul (0.8-2.9); LYMPHOCYTES % 4.3 % (15.0-51.0); MEAN CORPUSCULAR HEMOGLOBIN 26.8 pg (29.0-33.0); MEAN CORPUSCULAR HGB CONC 30.1 g/dl (32.0-37.0); MEAN CORPUSCULAR VOLUME 89.1 fl (82.0-101.0); MONOCYTE # 0.3 10^3/ul (0.3-0.9); MONOCYTES % 4.3 % (0.0-11.0); NEUTROPHIL # 7.1 10^3/ul (1.6-7.5); NEUTROPHILS % 90.6 % (39.0-77.0); PLATELET COUNT 128 10^3/UL (140-415); RED BLOOD COUNT 2.76 10^6/ul (4.20-5.40); RED CELL DISTRIBUTION WIDTH 16.9 % (11.5-14.5); WHITE BLOOD COUNT 7.9 10^3/ul (4.8-10.8)
[2017-04-06 06:52] LABS: ALBUMIN 2.7 g/dl (3.3-4.9); ALBUMIN/GLOBULIN RATIO 0.69; BILIRUBIN,INDIRECT 0.4 mg/dl (0-1.1); BILIRUBIN,TOTAL 0.4 mg/dl (0.2-1.3); CALCIUM 8.5 mg/dl (8.4-10.2); CREATININE 1.5 mg/dl (0.44-1.00); POTASSIUM 4.6 mmol/L (3.5-5.1); TOTAL PROTEIN 6.6 g/dl (6.1-8.1)
[2017-04-06 07:02] LABS: POSITIVE DIFF @See below
[2017-04-06 07:47] LABS: THYROID STIMULATING HORMONE 8.43 MIU/L (0.465-4.680)
[2017-04-06] MEDS: INSULIN ASPART [NOVOLOG] 3 ML PEN SC SCH ×4 (07:55→21:00)
[2017-04-06] MEDS: AMLODIPINE 5 MG TAB PO SCH (08:52)
[2017-04-06] MEDS: ISOSORBIDE DINITRATE 20 MG TAB PO SCH ×3 (08:52→20:30)
[2017-04-06] MEDS: LINAGLIPTIN 5 MG TABLET PO SCH (08:53)
[2017-04-06] MEDS: REPAGLINIDE 2 MG TAB PO SCH ×2 (08:53→11:30)
[2017-04-06] MEDS: ASPIRIN (EC) 81 MG TAB PO SCH (08:53)
[2017-04-06] MEDS: ATORVASTATIN 20 MG TAB PO SCH (08:53)
[2017-04-06] MEDS: SALMETEROL/FLUTICASONE 250/50 INHA INH SCH ×3 (08:53→22:00)
[2017-04-06] MEDS: FUROSEMIDE 40 MG TAB PO SCH (08:53)
--- NOTE | 2017-04-06 09:01 | PN ---
Date/Time of Note Date/Time of Note DATE: 04/06/17 TIME: 08:49 Assessment/Plan VTE Prophylaxis VTE Prophylaxis Intervention: ambulation VTE Contraindication Reason: peripheral vascular disease Lines/Catheters IV Catheter Type (from Nrs): Peripheral IV Central line still needed: No Urinary Cath still in place: No Reason Cath still needed: urinary retention Assessment/Plan Assessment/Plan 1.Drop of h/h fron to 12/21- Dr Herndon was called; Protonix on. No melena; Vomitus contains no blood visually.Anemia of chronic disease. Type and hold 2 units of PRBC's. 2.Elevation of creatinine 1.4 to 1.5 3. Diabetes type 2 better controlled. Will just follow. Accu-Chek every 6 for 24 hours and then decide to be more active or not. 4. Gastroesophageal reflux disease. She is doing fine on Protonix, will continue. 5. Sepsis- serial lactic acid levels- 3.7- now 1.4 6. History of recurrent ERCPs. 7. Memory impairment. 8. Urinary incontinence with hematuria and uti 9. Status post CABG. 10. Morbid obesity. 11. Status post left-sided carotid endarterectomy. 12.Hypertension. Currently normotensive, currently on hypertensive medications. Carvedilol and Norvasc will be continued. 13.Ascitis 14.Pannus 15.ALOC on and off 16.Nausea and vomiting 17.UTI-Awaiting the culture results. 18. Fever and chills stopped.Levaquin was started. Cont'd Hospitalization Reason: Called radiology for paracentesis. Not sceduled yet. Subjective 24 Hr Interval Summary Free Text/Dictation persistent n/v; x 3 at night. No f/c. I am very weak. Constitutional: improved, poor po, requiring IVF, requiring O2, No chills, No diaphoresis, No disoriented, No febrile, No no complaints, No other Eyes: No discharge, No no complaints, No other, No pain, No redness, No visual change ENT: No bleeding, No congestion, No discharge, No dysphagia, No no complaints, No other, No pain, No sore throat Respiratory: cough, pleuritic pain, shortness of breath, No no complaints, No other, No pain, No sputum, No wheezing Cardiovascular: chest pain, edema, lightheadedness, orthopenea, palpitations, paroxysmal nocturnal dyspnea Gastrointestinal: decreased appetite, nausea, other (distended with very big fatty layer.), passing stool, vomiting, No blood, No constipation, No diarrhea, No flatus, No no complaints, No pain Genitourinary: flank pain, No bleeding, No discharge, No dysuria, No hematuria, No no complaints, No other Musculoskeletal: back pain, bone/joint pain, neck pain, No no complaints, No other, No restricted range of motion, No swelling Skin: erythema, pruritis, No bruising, No laceration, No no complaints, No other, No rash, No skin lesions Neurologic: confusion, dizziness, headache, No focal-weakness, No no complaints, No other, No seizure, No syncope Endocrine: dry skin, polydypsia Psychological: anxiety, No confusion, No depression, No nl mood/affect, No no complaints, No other, No suicidal Exam/Review of Systems Vital Signs Vitals Vital Signs Date Time Temp Pulse Resp B/P Pulse Ox O2 Delivery O2 Flow Rate FiO2 04/06/17 08:17 65 04/06/17 07:54 98.0 16 115/55 98 04/06/17 01:00 Nasal Cannula Intake and Output 04/05/17 04/05/17 04/06/17 15:00 23:00 07:00 Intake Total 300 ml Output Total 450 ml Balance -150 ml Exam Constitutional: alert, distress, frail, obese, oriented, well developed, No non-verbal, No other Psych: anxiety, confusion (on and off.), depression, No nl mood/affect, No no complaints, No other, No suicidal Head: atraumatic, No hematomas, No lacerations, No normocephalic, No other Eyes: EOMI, PERRL, nl lids, nl sclera (no joundice.), No fundi, disc, No icteric, No nl conjunctiva, No other Neck: bruits, jvd, nuchal rigidity Respiratory: congested cough, diminished breath sounds, labored breathing, normal air movement, No clear to auscultation, No crackles/rales, No intercostal retraction, No other, No respirations, No tactile fremitus, No wheezing Cardiovascular: bruits, edema, systolic murmur, No S3, No S4, No diastolic murmur, No gallop, No irregular rhythm, No jugular venous distention (JVD), No murmurs/extra sounds, No nl pulses, No other , No regular rate and rhythm, No rub Gastrointestinal: ascites, distended, non-tender, surgical scars Musculoskeletal: joint tenderness, muscle tone, muscle weakness Extremities: edema, pitting pedal edema, No calf tenderness, No clubbing, No cyanosis, No normal pulses, No other, No palpable cord, No tenderness Neurological: DUMPSTER OPERATOR II-XII intact, confused, nl mental status (forgetful.), numbness, No DTR's symmetric, No focal weakness, No lethargic, No nl speech, No nl strength, No other, No reflexes, No unresponsive Skin: ecchymosis, rash or lesions Results Result Diagram: 04/06/17 0547 04/06/17 0546 Results 24 hrs Laboratory Tests Test 04/05/17 19:30 04/05/17 19:46 04/05/17 21:18 04/05/17 21:45 White Blood Count 15.5 #H Red Blood Count 3.72 #L Hemoglobin 9.7 L Hematocrit 33.4 L Mean Corpuscular Volume 89.8 Mean Corpuscular Hemoglobin 26.1 L Mean Corpuscular Hemoglobin Concent 29.0 L Red Cell Distribution Width 17.0 H Platelet Count 219 # Mean Platelet Volume 11.6 H Neutrophils % 87.6 H Lymphocytes % 7.0 L Monocytes % 4.1 Eosinophils % 0.6 Basophils % 0.2 Nucleated Red Blood Cells % 0.0 Neutrophils # 13.6 H Lymphocytes # 1.1 Monocytes # 0.6 Eosinophils # 0.1 Basophils # 0.0 Nucleated Red Blood Cells # 0.0 Prothrombin Time 14.7 Prothrombin Time Ratio 1.1 INR International Normalized Ratio 1.13 Activated Partial Thromboplast Time 27.9 Sodium Level 141 Potassium Level 4.8 Chloride Level 105 Carbon Dioxide Level 23 Anion Gap 18 H Blood Urea Nitrogen 33 H Creatinine 1.40 H Glucose Level 152 Lactic Acid Level 3.3 *H 1.4 Calcium Level 9.5 Total Bilirubin 0.6 Direct Bilirubin 0.00 Indirect Bilirubin 0.6 Aspartate Amino Transf (AST/SGOT) 17 Alanine Aminotransferase (ALT/SGPT) 21 Alkaline Phosphatase 153 H Ammonia 12 Troponin I 0.033 Total Protein 8.5 H Albumin 3.7 Globulin 4.80 H Albumin/Globulin Ratio 0.77 Lipase 143 Urine Color YELLOW Urine Clarity CLEAR Urine pH 5.0 Urine Specific [place] 1.008 Urine Ketones NEGATIVE Urine Nitrite NEGATIVE Urine Bilirubin NEGATIVE Urine Urobilinogen NEGATIVE Urine Leukocyte Esterase NEGATIVE Urine Microscopic RBC 8 H Urine Microscopic WBC 4 Urine Bacteria MANY A Urine Hemoglobin 1+ H Urine Glucose NEGATIVE Urine Total Protein NEGATIVE Bedside Glucose 102 Test 04/05/17 23:54 04/06/17 05:46 04/06/17 05:47 04/06/17 07:55 Lactic Acid Level 1.2 Sodium Level 140 Potassium Level 4.6 Chloride Level 108 Carbon Dioxide Level 24 Anion Gap 13 Blood Urea Nitrogen 34 H Creatinine 1.50 H Glucose Level 128 Calcium Level 8.5 Total Bilirubin 0.4 Direct Bilirubin 0.00 Indirect Bilirubin 0.4 Aspartate Amino Transf (AST/SGOT) 15 Alanine Aminotransferase (ALT/SGPT) 25 Alkaline Phosphatase 100 Total Protein 6.6 # Albumin 2.7 #L Globulin 3.90 H Albumin/Globulin Ratio 0.69 Thyroid Stimulating Hormone (TSH) 8.430 H White Blood Count 7.9 # Red Blood Count 2.76 #L Hemoglobin 7.4 #L Hematocrit 24.6 #L Mean Corpuscular Volume 89.1 Mean Corpuscular Hemoglobin 26.8 L Mean Corpuscular Hemoglobin Concent 30.1 L Red Cell Distribution Width 16.9 H Platelet Count 128 #L Mean Platelet Volume 12.0 H Neutrophils % 90.6 H Lymphocytes % 4.3 L Monocytes % 4.3 Eosinophils % 0.1 Basophils % 0.1 Nucleated Red Blood Cells % 0.0 Neutrophils # 7.1 Lymphocytes # 0.3 L Monocytes # 0.3 Eosinophils # 0.0 Basophils # 0.0 Nucleated Red Blood Cells # 0.0 Bedside Glucose 126 Medications Medications Current Medications Levofloxacin/ Dextrose (Levaquin 500mg/ D5W 100 ml (Pmx)) 100 ml @ 100 mls/hr Q24H IVPB Last administered on 04/05/17t 23:41; Admin Dose 100 MLS/HR; Start 04/05/17 at 23:00 Amlodipine Besylate (Norvasc) 5 mg DAILY PO ; Start 04/06/17 at 09:00 Aspirin (Halfprin) 81 mg DAILY PO ; Start 04/06/17 at 09:00 Atorvastatin Calcium (Lipitor) 20 mg DAILY PO ; Start 04/06/17 at 09:00 Carvedilol (Coreg) 6.25 mg BID PO Last administered on 04/05/17 23:44; Admin Dose 6.25 MG; Start 04/05/17 at 23:00 Ergocalciferol (Drisdol) 50,000 unit Q14D PO Last administered on 04/05/17 23 :42; Admin Dose 50,000 UNIT; Start 04/05/17 at 23:00 Furosemide (Lasix) 40 mg DAILY PO ; Start 04/06/17 at 09:00 Hydralazine HCl (Apresoline) 25 mg TID PO ; Start 04/06/17 at 09:00 Isosorbide Dinitrate (Isordil) 20 mg TID PO ; Start 04/06/17 at 09:00 Linagliptin (Tradjenta) 5 mg DAILY PO ; Start 04/06/17 at 09:00 Salmeterol Xinafoate/ Fluticasone (Advair 250/50 Diskus) 1 inh BID INH Last administered on 04/05/17 23:44; Admin Dose 1 INH; Start 04/05/17 at 23:00 Miscellaneous Information 1 ea NOTE XX ; Start 04/05/17 at 23:30 Glucose (Glutose) 15 gm Q15M PRN PO DECREASED GLUCOSE; Start 04/05/17 at 23:30 Glucose (Glutose) 22.5 gm Q15M PRN PO DECREASED GLUCOSE; Start 04/05/17 at 23: 30 Dextrose (D50w Syringe) 25 ml Q15M PRN IV DECREASED GLUCOSE; Start 04/05/17 at 23:30 Dextrose (D50w Syringe) 50 ml Q15M PRN IV DECREASED GLUCOSE; Start 04/05/17 at 23:30 Glucagon (Glucagen) 1 mg Q15M PRN IM DECREASED GLUCOSE; Start 04/05/17 at 23: 30 Glucose (Glutose) 15 gm Q15M PRN BUCCAL DECREASED GLUCOSE; Start 04/05/17 at 23:30 Pantoprazole (Protonix Iv) 40 mg DAILY@06 IV Last administered on 04/06/17 06 :41; Admin Dose 40 MG; Start 04/06/17 at 06:00 Ondansetron HCl (Zofran Inj) 4 mg Q4H PRN IV NAUSEA AND/OR VOMITING Last administered on 12/11/17at 02:18; Admin Dose 4 MG; Start 04/05/17 at 23:30 Influenza Virus Vaccine (Fluzone) 0.5 ml ONCE ONCE IM* ; Start 04/07/17 at 09: 00; Stop 04/07/17 at 09:01 PAO FERGUSON MD Apr 06, 2017 09:01
[2017-04-06] MEDS ORDERED: LIDOCAINE 1% (MPF) 5 ML VIAL ONE (11:01)
[2017-04-06] MEDS: DEXTROSE 50% 50 ML SYRINGE IV PRN ×4 (11:54→21:25)
[2017-04-06 13:32] LABS: ABNORMAL IP MESSAGE 1; HEMATOCRIT 23.3 % (37.0-47.0); MEAN CORPUSCULAR HEMOGLOBIN 26.4 pg (29.0-33.0); MEAN CORPUSCULAR HGB CONC 29.2 g/dl (32.0-37.0); MEAN CORPUSCULAR VOLUME 90.3 fl (82.0-101.0); MEAN PLATELET VOLUME 10.6 fl (7.4-10.4); PLATELET COUNT 95 10^3/UL (140-415); RED BLOOD COUNT 2.58 10^6/ul (4.20-5.40); RED CELL DISTRIBUTION WIDTH 16.8 % (11.5-14.5); WHITE BLOOD COUNT 3.9 10^3/ul (4.8-10.8)
[2017-04-06 13:35] LABS: POSITIVE DIFF @See below
[2017-04-06 13:37] LABS: HEMOGLOBIN 6.8 g/dl (12.0-16.0)
[2017-04-06] MEDS ORDERED: VANCOMYCIN IV PER PHARMACY XX SCH (14:00)
[2017-04-06] MEDS: DEXTROSE 5%-0.9% NACL 1,000 ML IV SCH (14:14)
[2017-04-06] MEDS: ALBUMIN HUMAN 25% 100 ML IV SCH ×2 (14:17→23:00)
[2017-04-06 14:18] LABS: ANISOCYTOSIS 1+ (0-0); EOSINOPHILS % (M) 3 % (0-7); GIANT THROMBO% (M) 2 % (0-0); MICROCYTOSIS 1+ (0-0); MONOCYTES % (M) 4 % (0-11); PLATELET ESTIMATE DECREASED; POIKILOCYTOSIS 3+ (0-0); POLYCHROMASIA 3+ (0-0)
[2017-04-06] MEDS ORDERED: VANCOMYCIN 1.5 GM in SOD CHLORIDE 0.9% 250 ML IVPB SCH (16:30)
--- NOTE | 2017-04-06 16:54 | RADRPT ---
PROCEDURE: Ultrasound guided paracentesis CLINICAL INDICATION: Ascites TECHNIQUE: The risks benefits and alternatives of the procedure were explained to the patient. In formed written consent was obtained. A time out was performed. The patient understood the risks be nefits and alternatives and wished to proceed with the procedure. COMPARISON: 02/18/2017. FINDINGS: A time out was performed. The overlying skin of the right lower quadrant of the abdomen was prepped and draped in the usual sterile fashion. Approximately 10 cc of Xylocaine was injected locally for pain control. Utilizing ultrasound guidance, a skinny 5-British Yueh catheter was placed into the p eritoneal cavity without difficulty. The patient tolerated the procedure well without complication. Approximately 40098 cc of yellow fluid was obtained. The fluid was not sent to the lab for furthe r analysis. IMPRESSION: 1. Successful ultrasound-guided paracentesis. RPTAT: QQ .Tre Montanez MD, Date Time Electronically viewed and signed by .Tre Montanez MD, on 04/06/2017 16:54 .N/
[2017-04-07] VITALS (12 sets, daily range): BP systolic 113–123; BP diastolic 53–60; PULSE 65–93; RESP 16–18
[2017-04-07] MEDS: DEXTROSE 50% 50 ML SYRINGE IV PRN ×2 (00:55→07:58)
[2017-04-07] MEDS: DEXTROSE 5%-0.9% NACL 1,000 ML IV SCH (06:40)
[2017-04-07] MEDS: ALBUMIN HUMAN 25% 100 ML IV SCH ×3 (06:45→22:28)
[2017-04-07] MEDS: PANTOPRAZOLE 40 MG INJ IV SCH (06:46)
[2017-04-07] MEDS: LEVOTHYROXINE 125 MCG TAB PO SCH ×2 (06:46→07:00)
[2017-04-07 06:47] LABS: CREATININE 1.25 mg/dl (0.44-1.00)
[2017-04-07] MEDS: INSULIN ASPART [NOVOLOG] 3 ML PEN SC SCH ×3 (07:55→21:00)
[2017-04-07] MEDS: DEXTROSE 10% 1,000 ML IV SCH (08:41)
[2017-04-07] MEDS: FUROSEMIDE 40 MG TAB PO SCH ×2 (09:00→10:05)
[2017-04-07] MEDS: ATORVASTATIN 20 MG TAB PO SCH ×2 (09:00→10:03)
[2017-04-07] MEDS: AMLODIPINE 5 MG TAB PO SCH ×2 (09:00→10:03)
[2017-04-07] MEDS ORDERED: INFLUENZA VIRUS VACCINE 0.5 ML (DISPENSING) IM* ONE (09:00)
[2017-04-07] MEDS: LINAGLIPTIN 5 MG TABLET PO SCH ×2 (09:00→10:06)
[2017-04-07] MEDS: ASPIRIN (EC) 81 MG TAB PO SCH ×2 (09:00→10:03)
--- NOTE | 2017-04-07 09:00 | PN ---
Date/Time of Note Date/Time of Note DATE: 04/07/17 TIME: 08:46 Assessment/Plan VTE Prophylaxis VTE Prophylaxis Intervention: ambulation, anti-embolic stocking VTE Contraindication Reason: peripheral vascular disease Lines/Catheters IV Catheter Type (from Nrsg): Peripheral IV Central line still needed: No Urinary Cath still in place: Yes Reason Cath still needed: urinary retention Assessment/Plan Assessment/Plan 1. Drop of h/h from to 12/21- : s/p 2 units of PRBC TX;Am h/h pending. Dr Herndon was called; Protonix on. No melena; No Vomiting today. Anemia of chronic disease. 2. Elevation of creatinine 1.4 to 1.5- 1,25 3. Diabetes type 2 better controlled. today hypoglycemic; NPO 2 days. Start feeding. Accu-Chek every 1 hr x 3 and re-evaluate. 4. Gastroesophageal reflux disease. She is doing fine on Protonix, will continue. 5. Sepsis- serial lactic acid levels- 3.7- now 1.4 6. History of recurrent ERCPs. 7. Memory impairment. 8. Urinary incontinence with hematuria and uti 9. Status post CABG. 10. Morbid obesity. 11. Status post left-sided carotid endarterectomy. 12. Hypertension. Currently normotensive, currently on hypertensive medications. Carvedilol and Norvasc will be continued. 13.Ascitis- s/p 10liters of fluid removal. 14.Pannus 15.ALOC on and off-metabolic. 16.Nausea and vomiting 17.UTI-Awaiting the culture results. 18. Fever and chills stopped.Levaquin was started.Approximately 40409 cc of yellow fluid was obtained. The fluid was not sent to the lab for further analysis. 19.hypoglycemia 20.Constipation 21.portal hypertension 22.S/p pacemaker implantation 23.memory impairment Cont'd Hospitalization Reason: hypoglycefmia. Subjective 24 Hr Interval Summary Free Text/Dictation SOB improved. No f/c. I am hungry. I am very weak. Constitutional: disoriented, improved, poor po, requiring IVF, requiring O2, No chills, No diaphoresis, No febrile, No no complaints, No other Eyes: No discharge, No no complaints, No other, No pain, No redness, No visual change ENT: No bleeding, No congestion, No discharge, No dysphagia, No no complaints, No other, No pain, No sore throat Respiratory: shortness of breath, No cough, No no complaints, No other, No pain, No pleuritic pain, No sputum, No wheezing Cardiovascular: chest pain, edema, lightheadedness, orthopenea, palpitations, paroxysmal nocturnal dyspnea, No no complaints, No other Gastrointestinal: constipation (no BM x 3 days.), flatus, nausea Genitourinary: flank pain, No bleeding, No discharge, No dysuria, No hematuria, No no complaints, No other Musculoskeletal: back pain, bone/joint pain, neck pain, No no complaints, No other, No restricted range of motion, No swelling Skin: pruritis, No bruising, No erythema, No laceration, No no complaints, No other, No rash , No skin lesions Neurologic: confusion, dizziness, headache Endocrine: dry skin, No no complaints, No other, No polydypsia, No polyuria, No temp intolerance Lymphatic: tender nodes, No adenopathy, No lymphadema, No no complaints, No other Psychological: anxiety, depression Exam/Review of Systems Vital Signs Vitals Vital Signs Date Time Temp Pulse Resp B/P Pulse Ox O2 Delivery O2 Flow Rate FiO2 04/07/17 08:12 70 04/07/17 07:23 98.6 18 121/58 100 04/06/17 20:00 Nasal Cannula 2.0 Intake and Output 04/06/17 04/06/17 04/07/17 15:00 23:00 07:00 Intake Total 250 ml 1190 ml Output Total 500 ml 350 ml Balance -250 ml 840 ml Exam Constitutional: alert (lethargic, arousable.), distress, frail, obese, oriented (not in time.), well developed, No non-verbal, No other Psych: anxiety, confusion, depression, No nl mood/affect, No no complaints, No other, No suicidal Head: atraumatic, normocephalic, No hematomas, No lacerations, No other Eyes: EOMI, PERRL, nl lids ENMT: nl external ears & nose, nl nasal mucosa & septum, tympanic membranes, No intubated, No mucosa pink and moist, No nl lips & teeth, No other Neck: bruits, jvd, nuchal rigidity, No masses, No non-tender, No other, No supple, No thyromegaly Respiratory: clear to auscultation, congested cough, diminished breath sounds, labored breathing, normal air movement, No crackles/rales, No intercostal retraction, No other, No respirations, No tactile fremitus, No wheezing Cardiovascular: bruits, edema, jugular venous distention (JVD), systolic murmur Gastrointestinal: ascites, bowel sounds, distended (less than yesterday.), nl liver, spleen (tender ruq.), soft, surgical scars, No firm, No hepatomegaly, No mass, No non-tender, No other, No rebound or guarding, No splenomegaly, No tender Genitourinary - Female: CVA tenderness, nl external genitalia, No CMT, No nl adnexae, No other, No uterus Musculoskeletal: joint tenderness, muscle tone, muscle weakness (prominent with decreased tonus and atrophy.), range of motion Extremities: edema, tenderness Neurological: EDI DEVELOPER II-XII intact (hearing impairment.), confused, lethargic, nl speech (better than yesterday.), numbness, No DTR's symmetric, No focal weakness, No nl mental status, No nl strength, No other, No reflexes, No unresponsive Skin: ecchymosis, No diaphoresis, No laceration, No nl turgor, No other, No puncture, No rash or lesions Lymph: No enlarged, No nl lymph nodes, No nontender, No other Results Result Diagram: 04/06/17 1314 04/07/17 0605 Results 24 hrs Laboratory Tests Test 04/06/17 11:45 04/06/17 12:03 04/06/17 12:23 04/06/17 12:25 Bedside Glucose 56 L 150 64 L 73 Test 04/06/17 12:47 04/06/17 13:06 04/06/17 13:14 04/06/17 13:29 Bedside Glucose 66 L 151 73 White Blood Count 3.9 #L Red Blood Count 2.58 L Hemoglobin 6.8 *L Hematocrit 23.3 L Mean Corpuscular Volume 90.3 Mean Corpuscular Hemoglobin 26.4 L Mean Corpuscular Hemoglobin Concent 29.2 L Red Cell Distribution Width 16.8 H Platelet Count 95 #L Mean Platelet Volume 10.6 H Neutrophils % Segmented Neutrophils % (Manual) 80 H Band Neutrophils % (Manual) 8 H Lymphocytes % Lymphocytes % (Manual) 5 L Monocytes % Monocytes % (Manual) 4 Eosinophils % Eosinophils % (Manual) 3 Basophils % Nucleated Red Blood Cells % 0.0 Neutrophils # Neutrophils # (Manual) 3.1 Band Neutrophils # 0.3 Absolute Lymphocytes (Manual) 0.1 L Lymphocytes # Monocytes # Absolute Monocytes (Manual) 0.1 L Eosinophils # Basophils # Nucleated Red Blood Cells # Platelet Estimate DECREASED Giant Platelets 2 H Polychromasia 3+ Poikilocytosis 3+ Anisocytosis 1+ Microcytosis 1+ Test 04/06/17 16:56 04/06/17 17:02 04/06/17 17:15 04/06/17 20:22 Bedside Glucose 37 *L 218 134 41 *L Test 04/06/17 20:51 04/06/17 21:43 04/06/17 22:02 04/07/17 00:00 Bedside Glucose 37 *L 137 98 55 L Test 04/07/17 00:39 04/07/17 01:17 04/07/17 01:31 04/07/17 06:05 Bedside Glucose 47 *L 121 94 Blood Urea Nitrogen 31 H Creatinine 1.25 H Test 04/07/17 07:51 04/07/17 07:56 04/07/17 08:14 04/07/17 08:29 Bedside Glucose 41 *L 48 *L 138 105 Medications Medications Current Medications Amlodipine Besylate (Norvasc) 5 mg DAILY PO ; Start 04/06/17 at 09:00 Aspirin (Halfprin) 81 mg DAILY PO Last administered on 04/06/17 08:53; Admin Dose 81 MG; Start 04/06/17 at 09:00 Atorvastatin Calcium (Lipitor) 20 mg DAILY PO Last administered on 04/06/17 08:53; Admin Dose 20 MG; Start 04/06/17 at 09:00 Carvedilol (Coreg) 6.25 mg BID PO Last administered on 04/05/17 23:44; Admin Dose 6.25 MG; Start 04/05/17 at 23:00 Ergocalciferol (Drisdol) 50,000 unit Q14D PO Last administered on 04/05/17 23 :42; Admin Dose 50,000 UNIT; Start 04/05/17 at 23:00 Furosemide (Lasix) 40 mg DAILY PO Last administered on 04/06/17 08:53; Admin Dose 40 MG; Start 04/06/17 at 09:00 Hydralazine HCl (Apresoline) 25 mg TID PO ; Start 04/06/17 at 09:00 Isosorbide Dinitrate (Isordil) 20 mg TID PO ; Start 04/06/17 at 09:00 Linagliptin (Tradjenta) 5 mg DAILY PO Last administered on 04/06/17 08:53; Admin Dose 5 MG; Start 04/06/17 at 09:00 Salmeterol Xinafoate/ Fluticasone (Advair 250/50 Diskus) 1 inh BID INH Last administered on 04/06/17 08:53; Admin Dose 1 INH; Start 04/05/17 at 23:00 Miscellaneous Information 1 ea NOTE XX ; Start 04/05/17 at 23:30 Glucose (Glutose) 15 gm Q15M PRN PO DECREASED GLUCOSE; Start 04/05/17 at 23:30 Glucose (Glutose) 22.5 gm Q15M PRN PO DECREASED GLUCOSE; Start 04/05/17 at 23: 30 Dextrose (D50w Syringe) 25 ml Q15M PRN IV DECREASED GLUCOSE Last administered on 04/06/17 12:47; Admin Dose 25 ML; Start 04/05/17 at 23:30 Dextrose (D50w Syringe) 50 ml Q15M PRN IV DECREASED GLUCOSE Last administered on 04/07/17 07:58; Admin Dose 50 ML; Start 04/05/17 at 23:30 Glucagon (Glucagen) 1 mg Q15M PRN IM DECREASED GLUCOSE; Start 04/05/17 at 23: 30 Glucose (Glutose) 15 gm Q15M PRN BUCCAL DECREASED GLUCOSE; Start 04/05/17 at 23:30 Pantoprazole (Protonix Iv) 40 mg DAILY@06 IV Last administered on 04/07/17 06 :46; Admin Dose 40 MG; Start 04/06/17 at 06:00 Ondansetron HCl (Zofran Inj) 4 mg Q4H PRN IV NAUSEA AND/OR VOMITING Last administered on 04/06/17 02:18; Admin Dose 4 MG; Start 04/05/17 at 23:30 Influenza Virus Vaccine 0.5 ml 0.5 ml ONCE ONCE IM* ; Start 04/07/17 at 09:00; Stop 04/07/17 at 09:01 Vancomycin HCl 100 ml @ 100 mls/hr Q24H IVPB ; Start 04/07/17 at 16:30 Levofloxacin/ Dextrose 100 ml @ 100 mls/hr Q48H IVPB ; Start 04/07/17 at 23:00 Dextrose (D10w) 1,000 ml @ 20 mls/hr Q24H IV Last administered on 04/07/17t 08:41; Admin Dose 20 MLS/HR; Start 04/07/17 at 08:30 PAO FERGUSON MD Apr 07, 2017 08:59
[2017-04-07 09:14] LABS: ABNORMAL IP MESSAGE 1; BASOPHILS % 0.3 % (0.0-2.0); EOSINOPHILS # 0.1 10^3/ul (0.0-0.5); EOSINOPHILS % 2.8 % (0.0-7.0); HEMOGLOBIN 7.9 g/dl (12.0-16.0); LYMPHOCYTES # 0.3 10^3/ul (0.8-2.9); LYMPHOCYTES % 8.6 % (15.0-51.0); MEAN CORPUSCULAR HEMOGLOBIN 27.3 pg (29.0-33.0); MEAN CORPUSCULAR HGB CONC 30.4 g/dl (32.0-37.0); MEAN PLATELET VOLUME 11.1 fl (7.4-10.4); MONOCYTE # 0.3 10^3/ul (0.3-0.9); MONOCYTES % 7.2 % (0.0-11.0); NEUTROPHIL # 2.9 10^3/ul (1.6-7.5); NEUTROPHILS % 80.3 % (39.0-77.0); PLATELET COUNT 84 10^3/UL (140-415); RED BLOOD COUNT 2.89 10^6/ul (4.20-5.40); RED CELL DISTRIBUTION WIDTH 16.8 % (11.5-14.5); WHITE BLOOD COUNT 3.6 10^3/ul (4.8-10.8)
[2017-04-07 09:15] LABS: POSITIVE DIFF @See below
[2017-04-07 09:26] LABS: ALBUMIN 2.1 g/dl (3.3-4.9); ALBUMIN/GLOBULIN RATIO 0.65; BILIRUBIN,INDIRECT 1.2 mg/dl (0-1.1); BILIRUBIN,TOTAL 1.2 mg/dl (0.2-1.3); CALCIUM 7.7 mg/dl (8.4-10.2); CREATININE 1.31 mg/dl (0.44-1.00); POTASSIUM 3.5 mmol/L (3.5-5.1); TOTAL PROTEIN 5.3 g/dl (6.1-8.1)
[2017-04-07] MEDS: ISOSORBIDE DINITRATE 20 MG TAB PO SCH ×4 (10:04→21:00)
[2017-04-07] MEDS: SALMETEROL/FLUTICASONE 250/50 INHA INH SCH ×2 (10:06→21:00)
[2017-04-07] MEDS: VANCOMYCIN 500MG/NS (PMX) 100 ML IVPB SCH (17:16)
--- NOTE | 2017-04-07 22:01 | CONS ---
DATE OF ADMISSION: 04/05/2017 DATE OF CONSULTATION: GASTROENTEROLOGY CONSULTATION REFERRING PHYSICIAN: Dr. Ferguson. REASON FOR CONSULTATION: Anemia and nausea and vomiting. HISTORY OF PRESENT ILLNESS: The patient is an 86-year-old female admitted through the emergency mei for weakness for the last 3 days. The patient denies any chest pain. No shortness of breath. 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 No hematemesis or melena. No hematochezia. Her abdomen was distended with asc ites; 10 liters of fluid was aspirated. Her hematocrit, which was 33, dropped down to 24, requiring blood transfusion. So, GI consult was called in. The patient also was complaining of nausea and v omiting for the last few weeks. She is a very poor historian. All of the information was gathered but reviewing the chart. The patient had a colonoscopy 2 years ago which was negative. PAST MEDICAL HISTORY: Diabetes mellitus, memory impairment, cirrhosis of liver, left-sided carotid endarterectomy, ascites, UTI, urinary incontinence and status post coronary artery bypass graft. PHYSICAL EXAMINATION: GENERAL: Awake, alert, not in distress. VITAL SIGNS: Stable. HEENT: Unremarkable. NECK: Supple, no thyromegaly, no lymphadenopathy. CARDIOVASCULAR: No murmur, gallop or click. ABDOMEN: Soft, not distended. EXTREMITIES: No edema. CENTRAL NERVOUS SYSTEM: Moving all of the extremities. IMPRESSION: 1. Cirrhosis of liver. 2. Massive ascites, status post paracentesis, 10 liters of fluid was removed without albumin transf usion. 3. Gallstone. 4. Nausea and vomiting. 5. Deep venous thrombosis by history. 6. Status post coronary artery bypass graft. 7. Diabetes mellitus. 8. Angioplasty. 9. Chronic obstructive pulmonary disease. 10. Hypertension 11. Anemia. 12. Status post pacemaker implantation. PLAN: To continue present care. Will proceed with EGD for her anemia and nausea and vomiting. Will work her up also for anemia at the same time. In the interim, continue PPI. Dictated By: JOSY ROBERTS/LUCILA Conf#: [id number] DID#: [id number] CC: PAO FERGUSON MD;*EndCC*
[2017-04-07] MEDS: LEVOFLOXACIN 500MG/D5W (PMX) 100 ML IVPB SCH (23:22)
[2017-04-08] VITALS (10 sets, daily range): BP systolic 110–136; BP diastolic 55–65; PULSE 65–66; RESP 17–18
[2017-04-08] MEDS: ACCU-CHEK XX SCH (01:17)
[2017-04-08] MEDS: PANTOPRAZOLE 40 MG INJ IV SCH (05:47)
[2017-04-08] MEDS: ALBUMIN HUMAN 25% 100 ML IV SCH (05:48)
[2017-04-08] MEDS: LEVOTHYROXINE 125 MCG TAB PO SCH (06:42)
[2017-04-08 07:17] LABS: ABNORMAL IP MESSAGE 1; EOSINOPHILS # 0.1 10^3/ul (0.0-0.5); HEMATOCRIT 28.3 % (37.0-47.0); HEMOGLOBIN 8.5 g/dl (12.0-16.0); LYMPHOCYTES # 0.4 10^3/ul (0.8-2.9); LYMPHOCYTES % 10.8 % (15.0-51.0); MEAN CORPUSCULAR HEMOGLOBIN 26.9 pg (29.0-33.0); MEAN CORPUSCULAR VOLUME 89.6 fl (82.0-101.0); MEAN PLATELET VOLUME 12.3 fl (7.4-10.4); MONOCYTE # 0.2 10^3/ul (0.3-0.9); MONOCYTES % 6.9 % (0.0-11.0); NEUTROPHIL # 2.6 10^3/ul (1.6-7.5); NEUTROPHILS % 78.7 % (39.0-77.0); PLATELET COUNT 97 10^3/UL (140-415); RED BLOOD COUNT 3.16 10^6/ul (4.20-5.40); RED CELL DISTRIBUTION WIDTH 16.8 % (11.5-14.5); WHITE BLOOD COUNT 3.3 10^3/ul (4.8-10.8)
[2017-04-08 07:23] LABS: POSITIVE DIFF @See below
[2017-04-08 07:27] LABS: RETICULOCYTE COUNT % 1.6 % (0.5-1.5)
[2017-04-08 07:41] LABS: IRON 13 ug/dl (35-150)
[2017-04-08 07:42] LABS: ALBUMIN 3.1 g/dl (3.3-4.9); ALBUMIN/GLOBULIN RATIO 0.96; BILIRUBIN,INDIRECT 0.6 mg/dl (0-1.1); BILIRUBIN,TOTAL 0.6 mg/dl (0.2-1.3); CALCIUM 8.7 mg/dl (8.4-10.2); CREATININE 1.49 mg/dl (0.44-1.00); MAGNESIUM 1.8 mg/dl (1.7-2.5); POTASSIUM 4.5 mmol/L (3.5-5.1); TOTAL PROTEIN 6.3 g/dl (6.1-8.1)
[2017-04-08 07:53] LABS: TOTAL IRON BINDING CAPACITY 200 ug/dl (241-421)
[2017-04-08] MEDS: INSULIN ASPART [NOVOLOG] 3 ML PEN SC SCH ×4 (07:55→20:29)
[2017-04-08] MEDS: DEXTROSE 10% 1,000 ML IV SCH (08:04)
[2017-04-08] MEDS: AMLODIPINE 5 MG TAB PO SCH (08:30)
[2017-04-08] MEDS: ISOSORBIDE DINITRATE 20 MG TAB PO SCH ×3 (08:30→20:24)
[2017-04-08] MEDS: SALMETEROL/FLUTICASONE 250/50 INHA INH SCH ×2 (08:35→20:24)
[2017-04-08] MEDS: FUROSEMIDE 40 MG TAB PO SCH (08:35)
[2017-04-08] MEDS: ATORVASTATIN 20 MG TAB PO SCH (08:40)
[2017-04-08] MEDS: LINAGLIPTIN 5 MG TABLET PO SCH (08:40)
[2017-04-08] MEDS: ASPIRIN (EC) 81 MG TAB PO SCH (08:41)
[2017-04-08 08:45] LABS: FOLATE 8.3 ng/ml (2.8-20.0)
[2017-04-08] MEDS ORDERED: MAGNESIUM SULFATE 2 GM/50 ML 50 ML IVPB ONE (09:00)
--- NOTE | 2017-04-08 09:10 | PN ---
Date/Time of Note Date/Time of Note DATE: 04/08/17 TIME: 08:51 Assessment/Plan VTE Prophylaxis VTE Prophylaxis Intervention: ambulation, anti-embolic stocking VTE Contraindication Reason: peripheral vascular disease Lines/Catheters IV Catheter Type (from Nrsg): [place] [employer] line still needed: No Urinary Cath still in place: Yes Reason Cath still needed: urinary retention Assessment/Plan Assessment/Plan 1. Drop of h/h from to 12/21- : s/p 2 units of PRBC TX;Am h/h pending. Dr Herndon was called; Protonix on. No melena; No Vomiting today. Anemia of chronic disease. Son(Louis) called me that the mother and the family don't want Gastroscopy. Explained in details that a this was an acute blood loss and althoughr there is no evidence of severe bleeding as of now but the chances of founding a source of bleed ing is higher when we do immediately. 2. Elevation of creatinine 1.4 to 1.5- 1,25 3. Diabetes type 2 better controlled. today hypoglycemic.Eating well. Accu- Chek every 6 hr's. 4. Gastroesophageal reflux disease. She is doing fine on Protonix, will continue. 5. Sepsis- improving. 6. History of recurrent ERCPs- refused new GI w/u. 7. Memory impairment. 8. Urinary incontinence with hematuria and uti 9. Status post CABG. 10. Morbid obesity. 11. Status post left-sided carotid endarterectomy. 12. Hypertension. Currently normotensive, currently on hypertensive medications. Carvedilol and Norvasc will be continued. 13.Ascitis- s/p 10liters of fluid removal. 14.Pannus 15.ALOC on and off-metabolic. 16.Nausea and vomiting 17.UTI-Awaiting the culture results. 18. Fever and chills stopped.Levaquin was started.Approximately 24402 cc of yellow fluid was obtained. The fluid was not sent to the lab for further analysis. 19.hypoglycemia 20.Constipation 21.portal hypertension 22.S/p pacemaker implantation 23.memory impairment 24.Low iron 25.Low vit "D". 26.low albumine Cont'd Hospitalization Reason: as above. Subjective 24 Hr Interval Summary Free Text/Dictation I am able to eat. Less sob. No tachycardia anymore. Constitutional: poor po, requiring IVF, requiring O2, No chills, No diaphoresis, No disoriented, No febrile, No improved, No no complaints, No other Eyes: redness, No discharge, No no complaints, No other, No pain, No visual change ENT: congestion, dysphagia, No bleeding, No discharge, No no complaints, No other, No pain, No sore throat Respiratory: cough, shortness of breath, No no complaints, No other, No pain, No pleuritic pain, No sputum, No wheezing Cardiovascular: chest pain, lightheadedness, orthopenea, No edema, No no complaints, No other, No palpitations, No paroxysmal nocturnal dyspnea Gastrointestinal: constipation, flatus, nausea (less intense.), pain, passing stool Genitourinary: dysuria, flank pain, No bleeding, No discharge, No hematuria, No no complaints, No other Musculoskeletal: back pain, bone/joint pain, neck pain, No no complaints, No other, No restricted range of motion, No swelling Skin: bruising, erythema, pruritis, rash, No laceration, No no complaints, No other, No skin lesions Neurologic: confusion, dizziness, headache, No focal-weakness, No no complaints, No other, No seizure, No syncope Endocrine: No dry skin, No no complaints, No other, No polydypsia, No polyuria , No temp intolerance Lymphatic: No adenopathy, No lymphadema, No no complaints, No other, No tender nodes Psychological: anxiety, confusion (refuses gi w/u. I don't think I need it.), depression Exam/Review of Systems Vital Signs Vitals Vital Signs Date Time Temp Pulse Resp B/P Pulse Ox O2 Delivery O2 Flow Rate FiO2 04/08/17 08:17 97.5 64 17 110/55 100 04/07/17 20:00 Nasal Cannula 2.0 Intake and Output 04/07/17 04/07/17 04/08/17 15:00 23:00 07:00 Intake Total 200 ml 500 ml Output Total 250 ml 400 ml Balance -50 ml 100 ml Exam Constitutional: alert, distress, frail, oriented, other, well developed Psych: anxiety, depression, No confusion, No nl mood/affect, No no complaints, No other, No suicidal Head: atraumatic, normocephalic, No hematomas, No lacerations, No other Eyes: EOMI, PERRL, nl conjunctiva (pale.), nl lids ENMT: nl external ears & nose, No intubated, No mucosa pink and moist, No nl lips & teeth, No nl nasal mucosa & septum, No other, No tympanic membranes Neck: bruits, jvd, nuchal rigidity Respiratory: clear to auscultation, diminished breath sounds, No congested cough, No crackles/rales, No intercostal retraction, No labored breathing, No normal air movement, No other, No respirations, No tactile fremitus, No wheezing Cardiovascular: bruits, edema (less.), jugular venous distention (JVD) Gastrointestinal: bowel sounds, nl liver, spleen, soft (less distended.) Musculoskeletal: joint tenderness, muscle tone, muscle weakness, range of motion, No nl extremities to inspection, No nl gait and stance, No other, No spine non-tender, No swelling Extremities: normal pulses (demeinished.), pitting pedal edema, tenderness, No calf tenderness, No clubbing, No cyanosis, No edema, No other, No palpable cord Neurological: TRANSLATOR II-XII intact (decreasedf hearing.), confused (on and off.) , focal weakness, lethargic, nl mental status (improved. forgetful.), numbness , No DTR's symmetric, No nl speech, No nl strength, No other, No reflexes, No unresponsive Skin: ecchymosis Results Result Diagram: 04/08/17 0651 04/08/17 0650 Results 24 hrs Laboratory Tests Test 04/07/17 10:15 04/07/17 10:41 04/07/17 11:51 04/07/17 17:26 Bedside Glucose 62 L 68 L 211 Glucose Level 47 #*L Test 04/07/17 22:03 04/08/17 06:50 04/08/17 06:51 04/08/17 07:06 Bedside Glucose 119 Sodium Level 142 Potassium Level 4.5 Chloride Level 108 Carbon Dioxide Level 23 Anion Gap 16 Blood Urea Nitrogen 34 H Creatinine 1.49 H Glucose Level 105 # Calcium Level 8.7 Magnesium Level 1.8 Iron Level 13 L Total Iron Binding Capacity 200 L Percent Iron Saturation 7 L Ferritin Pending Total Bilirubin 0.6 Direct Bilirubin 0.00 Indirect Bilirubin 0.6 Aspartate Amino Transf (AST/SGOT) 12 L Alanine Aminotransferase (ALT/SGPT) 27 Alkaline Phosphatase 63 Total Protein 6.3 # Albumin 3.1 #L Globulin 3.20 Albumin/Globulin Ratio 0.96 Amylase Level 47 Vitamin B12 Level 232 L Folate 8.3 White Blood Count 3.3 L Red Blood Count 3.16 L Hemoglobin 8.5 L Hematocrit 28.3 L Mean Corpuscular Volume 89.6 Mean Corpuscular Hemoglobin 26.9 L Mean Corpuscular Hemoglobin Concent 30.0 L Red Cell Distribution Width 16.8 H Platelet Count 97 L Mean Platelet Volume 12.3 H Neutrophils % 78.7 H Lymphocytes % 10.8 L Monocytes % 6.9 Eosinophils % 3.0 Basophils % 0.0 Nucleated Red Blood Cells % 0.0 Neutrophils # 2.6 Lymphocytes # 0.4 L Monocytes # 0.2 L Eosinophils # 0.1 Basophils # 0.0 Nucleated Red Blood Cells # 0.0 Absolute Reticulocyte Count 0.050 Percent Reticulocyte Count 1.6 H Lab Scanned Report BLOOD TRANSFUSION Test 04/08/17 07:54 Bedside Glucose 114 Medications Medications Current Medications Amlodipine Besylate (Norvasc) 5 mg DAILY PO ; Start 04/06/17 at 09:00 Aspirin (Halfprin) 81 mg DAILY PO Last administered on 04/06/17 08:53; Admin Dose 81 MG; Start 04/06/17 at 09:00 Atorvastatin Calcium (Lipitor) 20 mg DAILY PO Last administered on 04/08/17 08:40; Admin Dose 20 MG; Start 04/06/17 at 09:00 Carvedilol (Coreg) 6.25 mg BID PO Last administered on 04/05/17 23:44; Admin Dose 6.25 MG; Start 04/05/17 at 23:00 Ergocalciferol (Drisdol) 50,000 unit Q14D PO Last administered on 04/05/17 23 :42; Admin Dose 50,000 UNIT; Start 04/05/17 at 23:00 Furosemide (Lasix) 40 mg DAILY PO Last administered on 04/08/17 08:35; Admin Dose 40 MG; Start 04/06/17 at 09:00 Hydralazine HCl (Apresoline) 25 mg TID PO Last administered on 04/07/17 10:04 ; Admin Dose 25 MG; Start 04/06/17 at 09:00 Isosorbide Dinitrate (Isordil) 20 mg TID PO Last administered on 04/07/17 10: 04; Admin Dose 20 MG; Start 04/06/17 at 09:00 Linagliptin (Tradjenta) 5 mg DAILY PO Last administered on 04/08/17 08:40; Admin Dose 5 MG; Start 04/06/17 at 09:00 Salmeterol Xinafoate/ Fluticasone (Advair 250/50 Diskus) 1 inh BID INH Last administered on 04/07/17 10:06; Admin Dose 1 INH; Start 04/05/17 at 23:00 Glucose (Glutose) 15 gm Q15M PRN PO DECREASED GLUCOSE; Start 04/05/17 at 23:30 Glucose (Glutose) 22.5 gm Q15M PRN PO DECREASED GLUCOSE; Start 04/05/17 at 23: 30 Dextrose (D50w Syringe) 25 ml Q15M PRN IV DECREASED GLUCOSE Last administered on 04/06/17 12:47; Admin Dose 25 ML; Start 04/05/17 at 23:30 Dextrose (D50w Syringe) 50 ml Q15M PRN IV DECREASED GLUCOSE Last administered on 04/07/17 07:58; Admin Dose 50 ML; Start 04/05/17 at 23:30 Glucagon (Glucagen) 1 mg Q15M PRN IM DECREASED GLUCOSE; Start 04/05/17 at 23: 30 Glucose (Glutose) 15 gm Q15M PRN BUCCAL DECREASED GLUCOSE; Start 04/05/17 at 23:30 Pantoprazole (Protonix Iv) 40 mg DAILY@06 IV Last administered on 04/08/17 05 :47; Admin Dose 40 MG; Start 04/06/17 at 06:00 Ondansetron HCl 4 mg 4 mg Q4H PRN IV NAUSEA AND/OR VOMITING Last administered on 04/06/17 02:18; Admin Dose 4 MG; Start 04/05/17 at 23:30 Vancomycin HCl 100 ml @ 100 mls/hr Q24H IVPB Last administered on 04/07/17 17:16; Admin Dose 100 MLS/HR; Start 04/07/17 at 16:30 Levofloxacin/ Dextrose 100 ml @ 100 mls/hr Q48H IVPB Last administered on 23:22; Admin Dose 100 MLS/HR; Start 04/07/17 at 23:00 Dextrose (D10w) 1,000 ml @ 20 mls/hr Q24H IV Last administered on 04/07/17 08:41; Admin Dose 20 MLS/HR; Start 04/07/17 at 08:30 Diagnostic Test (Pha) (Accu-Chek) 1 ea 02 XX ; Start 04/08/17 at 02:00 PAO FERGUSON MD Apr 08, 2017 09:10
[2017-04-08 10:01] LABS: FERRITIN 67.9 ng/ml (11.1-264.0)
[2017-04-08] MEDS: CYANOCOBALAMIN 1000 MCG INJ IM SCH (11:01)
[2017-04-08] MEDS: SOD FERRIC GLUC COMPLX 125 MG in SOD CHLORIDE 0.9% 100 ML IVPB SCH (11:01)
--- NOTE | 2017-04-08 14:02 | CONS ---
Date/Time of Note Date/Time of Note DATE: 04/08/17 TIME: 14:02 Consultation Date/Type/Reason Admit Date/Time Apr 05, 2017 at 21:03 Initial Consult Date Exam/Review of Systems Vital Signs Vitals Vital Signs Date Time Temp Pulse Resp B/P Pulse Ox O2 Delivery O2 Flow Rate FiO2 04/08/17 12:30 65 04/08/17 11:49 98.9 17 136/62 100 04/08/17 08:00 Nasal Cannula 2.0 Intake and Output 04/07/17 04/07/17 04/08/17 14:59 22:59 06:59 Intake Total 30 ml 200 ml 500 ml Output Total 250 ml 400 ml Balance 30 ml -50 ml 100 ml Results Result Diagram: 04/08/17 0651 04/08/17 0650 Results 24 hrs Laboratory Tests Test 04/07/17 17:26 04/07/17 22:03 04/08/17 06:50 04/08/17 06:51 Bedside Glucose 211 119 Sodium Level 142 Potassium Level 4.5 Chloride Level 108 Carbon Dioxide Level 23 Anion Gap 16 Blood Urea Nitrogen 34 H Creatinine 1.49 H Glucose Level 105 # Calcium Level 8.7 Magnesium Level 1.8 Iron Level 13 L Total Iron Binding Capacity 200 L Percent Iron Saturation 7 L Ferritin 67.9 Total Bilirubin 0.6 Direct Bilirubin 0.00 Indirect Bilirubin 0.6 Aspartate Amino Transf (AST/SGOT) 12 L Alanine Aminotransferase (ALT/SGPT) 27 Alkaline Phosphatase 63 Total Protein 6.3 # Albumin 3.1 #L Globulin 3.20 Albumin/Globulin Ratio 0.96 Amylase Level 47 Vitamin B12 Level 232 L Folate 8.3 White Blood Count 3.3 L Red Blood Count 3.16 L Hemoglobin 8.5 L Hematocrit 28.3 L Mean Corpuscular Volume 89.6 Mean Corpuscular Hemoglobin 26.9 L Mean Corpuscular Hemoglobin Concent 30.0 L Red Cell Distribution Width 16.8 H Platelet Count 97 L Mean Platelet Volume 12.3 H Neutrophils % 78.7 H Lymphocytes % 10.8 L Monocytes % 6.9 Eosinophils % 3.0 Basophils % 0.0 Nucleated Red Blood Cells % 0.0 Neutrophils # 2.6 Lymphocytes # 0.4 L Monocytes # 0.2 L Eosinophils # 0.1 Basophils # 0.0 Nucleated Red Blood Cells # 0.0 Absolute Reticulocyte Count 0.050 Percent Reticulocyte Count 1.6 H Test 04/08/17 07:06 04/08/17 07:54 04/08/17 10:15 04/08/17 11:47 Lab Scanned Report BLOOD TRANSFUSION Bedside Glucose 114 119 Stool Occult Blood NEGATIVE Medications Medications Current Medications Amlodipine Besylate (Norvasc) 5 mg DAILY PO ; Start 04/06/17 at 09:00 Aspirin (Halfprin) 81 mg DAILY PO Last administered on 04/06/17 08:53; Admin Dose 81 MG; Start 04/06/17 at 09:00 Atorvastatin Calcium (Lipitor) 20 mg DAILY PO Last administered on 04/08/17 08:40; Admin Dose 20 MG; Start 04/06/17 at 09:00 Carvedilol (Coreg) 6.25 mg BID PO Last administered on 04/05/17 23:44; Admin Dose 6.25 MG; Start 04/05/17 at 23:00 Ergocalciferol (Drisdol) 50,000 unit Q14D PO Last administered on 04/05/17 23 :42; Admin Dose 50,000 UNIT; Start 04/05/17 at 23:00 Furosemide (Lasix) 40 mg DAILY PO Last administered on 04/08/17 08:35; Admin Dose 40 MG; Start 04/06/17 at 09:00 Hydralazine HCl (Apresoline) 25 mg TID PO Last administered on 04/08/17 12:35 ; Admin Dose 25 MG; Start 04/06/17 at 09:00 Isosorbide Dinitrate (Isordil) 20 mg TID PO Last administered on 04/08/17 12: 35; Admin Dose 20 MG; Start 04/06/17 at 09:00 Linagliptin (Tradjenta) 5 mg DAILY PO Last administered on 04/08/17 08:40; Admin Dose 5 MG; Start 04/06/17 at 09:00 Salmeterol Xinafoate/ Fluticasone (Advair 250/50 Diskus) 1 inh BID INH Last administered on 04/07/17 10:06; Admin Dose 1 INH; Start 04/05/17 at 23:00 Glucose (Glutose) 15 gm Q15M PRN PO DECREASED GLUCOSE; Start 04/05/17 at 23:30 Glucose (Glutose) 22.5 gm Q15M PRN PO DECREASED GLUCOSE; Start 04/05/17 at 23: 30 Dextrose (D50w Syringe) 25 ml Q15M PRN IV DECREASED GLUCOSE Last administered on 04/06/17 12:47; Admin Dose 25 ML; Start 04/05/17 at 23:30 Dextrose (D50w Syringe) 50 ml Q15M PRN IV DECREASED GLUCOSE Last administered on 04/07/17 07:58; Admin Dose 50 ML; Start 04/05/17 at 23:30 Glucagon (Glucagen) 1 mg Q15M PRN IM DECREASED GLUCOSE; Start 04/05/17 at 23: 30 Glucose (Glutose) 15 gm Q15M PRN BUCCAL DECREASED GLUCOSE; Start 04/05/17 at 23:30 Pantoprazole (Protonix Iv) 40 mg DAILY@06 IV Last administered on 04/08/17 05 :47; Admin Dose 40 MG; Start 04/06/17 at 06:00 Ondansetron HCl 4 mg 4 mg Q4H PRN IV NAUSEA AND/OR VOMITING Last administered on 04/06/17 02:18; Admin Dose 4 MG; Start 04/05/17 at 23:30 Vancomycin HCl 100 ml @ 100 mls/hr Q24H IVPB Last administered on 04/07/17 17:16; Admin Dose 100 MLS/HR; Start 04/07/17 at 16:30 Levofloxacin/ Dextrose 100 ml @ 100 mls/hr Q48H IVPB Last administered on 23:22; Admin Dose 100 MLS/HR; Start 04/07/17 at 23:00 Dextrose (D10w) 1,000 ml @ 20 mls/hr Q24H IV Last administered on 04/07/17 08:41; Admin Dose 20 MLS/HR; Start 04/07/17 at 08:30 Diagnostic Test (Pha) 1 ea 1 ea 02 XX ; Start 04/08/17 at 02:00 Ferric Sodium Gluconate Complex/ Sodium Chloride (Ferrlecit/NS) 110 ml @ 110 mls/hr Q24H IVPB Last administered on 04/08/17 11:01; Admin Dose 110 MLS/HR; Start 04/08/17 at 10:00; Stop 04/12/17 at 10:59 Cyanocobalamin (Vitamin B12 Inj) 1,000 mcg DAILY IM Last administered on t 11:01; Admin Dose 1,000 MCG; Start 04/08/17 at 09:00 Miscellaneous Information (*Rx Drug Level Order Reminder*) VANCOMYCIN TROUGH ON @ 530 ONCE ONCE XX ; Start 04/09/17 at 15:30; Stop 04/09/17 at 15:31 JOSE R CANCINO MD Apr 08, 2017 14:02
[2017-04-08] MEDS: VANCOMYCIN 500MG/NS (PMX) 100 ML IVPB SCH (16:16)
--- NOTE | 2017-04-08 18:15 | CONS ---
Date/Time of Note Date/Time of Note DATE: 04/08/17 TIME: 18:14 Assessment/Plan Assessment/Plan Additional Assessment/Plan IMPRESSION: 1. Cirrhosis of liver. 2. Massive ascites, status post paracentesis, 10 liters of fluid was removed without albumin transfusion. 3. Gallstone. 4. Nausea and vomiting. 5. Deep venous thrombosis by history. 6. Status post coronary artery bypass graft. 7. Diabetes mellitus. 8. Angioplasty. 9. Chronic obstructive pulmonary disease. 10. Hypertension 11. Anemia. 12. Status post pacemaker implantation. Plan Patient declined EGD. This was for the surveillance of esophageal varicose vein and also find out the cause of GI blood loss. Patient is a B12 deficiency needs B12 injection. Iron saturation also was low. Consultation Date/Type/Reason Admit Date/Time Apr 05, 2017 at 21:03 Initial Consult Date 24 HR Interval Summary Constitutional: no complaints Exam/Review of Systems Vital Signs Vitals Vital Signs Date Time Temp Pulse Resp B/P Pulse Ox O2 Delivery O2 Flow Rate FiO2 04/08/17 16:57 66 04/08/17 15:53 98.9 17 135/58 100 04/08/17 08:00 Nasal Cannula 2.0 Intake and Output 04/07/17 04/07/17 04/08/17 15:00 23:00 07:00 Intake Total 200 ml 500 ml Output Total 250 ml 400 ml Balance -50 ml 100 ml Exam Constitutional: alert, oriented, well developed Psych: nl mood/affect, no complaints Head: atraumatic, normocephalic Eyes: EOMI, PERRL, nl conjunctiva, nl lids, nl sclera ENMT: nl external ears & nose, nl lips & teeth, nl nasal mucosa & septum Neck: non-tender, supple Respiratory: clear to auscultation, normal air movement Cardiovascular: nl pulses, regular rate and rhythm Gastrointestinal: nl liver, spleen, non-tender, soft Musculoskeletal: nl extremities to inspection, nl gait and stance Extremities: normal pulses Neurological: OXYGEN TANK FILLER II-XII intact, nl mental status, nl speech, nl strength Skin: nl turgor, No rash or lesions Lymph: nl lymph nodes Results Result Diagram: 04/08/17 0651 04/08/17 0650 Results 24 hrs Laboratory Tests Test 04/07/17 22:03 04/08/17 06:50 04/08/17 06:51 04/08/17 07:06 Bedside Glucose 119 Sodium Level 142 Potassium Level 4.5 Chloride Level 108 Carbon Dioxide Level 23 Anion Gap 16 Blood Urea Nitrogen 34 H Creatinine 1.49 H Glucose Level 105 # Calcium Level 8.7 Magnesium Level 1.8 Iron Level 13 L Total Iron Binding Capacity 200 L Percent Iron Saturation 7 L Ferritin 67.9 Total Bilirubin 0.6 Direct Bilirubin 0.00 Indirect Bilirubin 0.6 Aspartate Amino Transf (AST/SGOT) 12 L Alanine Aminotransferase (ALT/SGPT) 27 Alkaline Phosphatase 63 Total Protein 6.3 # Albumin 3.1 #L Globulin 3.20 Albumin/Globulin Ratio 0.96 Amylase Level 47 Vitamin B12 Level 232 L Folate 8.3 White Blood Count 3.3 L Red Blood Count 3.16 L Hemoglobin 8.5 L Hematocrit 28.3 L Mean Corpuscular Volume 89.6 Mean Corpuscular Hemoglobin 26.9 L Mean Corpuscular Hemoglobin Concent 30.0 L Red Cell Distribution Width 16.8 H Platelet Count 97 L Mean Platelet Volume 12.3 H Neutrophils % 78.7 H Lymphocytes % 10.8 L Monocytes % 6.9 Eosinophils % 3.0 Basophils % 0.0 Nucleated Red Blood Cells % 0.0 Neutrophils # 2.6 Lymphocytes # 0.4 L Monocytes # 0.2 L Eosinophils # 0.1 Basophils # 0.0 Nucleated Red Blood Cells # 0.0 Absolute Reticulocyte Count 0.050 Percent Reticulocyte Count 1.6 H Lab Scanned Report BLOOD TRANSFUSION Test 04/08/17 07:54 04/08/17 10:15 04/08/17 11:47 04/08/17 17:16 Bedside Glucose 114 119 127 Stool Occult Blood NEGATIVE Medications Medications Current Medications Amlodipine Besylate (Norvasc) 5 mg DAILY PO ; Start 04/06/17 at 09:00 Aspirin (Halfprin) 81 mg DAILY PO Last administered on 04/06/17 08:53; Admin Dose 81 MG; Start 04/06/17 at 09:00 Atorvastatin Calcium (Lipitor) 20 mg DAILY PO Last administered on 04/08/17 08:40; Admin Dose 20 MG; Start 04/06/17 at 09:00 Carvedilol (Coreg) 6.25 mg BID PO Last administered on 04/05/17 23:44; Admin Dose 6.25 MG; Start 04/05/17 at 23:00 Ergocalciferol (Drisdol) 50,000 unit Q14D PO Last administered on 04/05/17 23 :42; Admin Dose 50,000 UNIT; Start 04/05/17 at 23:00 Furosemide (Lasix) 40 mg DAILY PO Last administered on 04/08/17 08:35; Admin Dose 40 MG; Start 04/06/17 at 09:00 Hydralazine HCl (Apresoline) 25 mg TID PO Last administered on 04/08/17 12:35 ; Admin Dose 25 MG; Start 04/06/17 at 09:00 Isosorbide Dinitrate (Isordil) 20 mg TID PO Last administered on 04/08/17 12: 35; Admin Dose 20 MG; Start 04/06/17 at 09:00 Linagliptin (Tradjenta) 5 mg DAILY PO Last administered on 04/08/17 08:40; Admin Dose 5 MG; Start 04/06/17 at 09:00 Salmeterol Xinafoate/ Fluticasone (Advair 250/50 Diskus) 1 inh BID INH Last administered on 04/07/17 10:06; Admin Dose 1 INH; Start 04/05/17 at 23:00 Glucose (Glutose) 15 gm Q15M PRN PO DECREASED GLUCOSE; Start 04/05/17 at 23:30 Glucose (Glutose) 22.5 gm Q15M PRN PO DECREASED GLUCOSE; Start 04/05/17 at 23: 30 Dextrose (D50w Syringe) 25 ml Q15M PRN IV DECREASED GLUCOSE Last administered on 04/06/17 12:47; Admin Dose 25 ML; Start 04/05/17 at 23:30 Dextrose (D50w Syringe) 50 ml Q15M PRN IV DECREASED GLUCOSE Last administered on 04/07/17 07:58; Admin Dose 50 ML; Start 04/05/17 at 23:30 Glucagon (Glucagen) 1 mg Q15M PRN IM DECREASED GLUCOSE; Start 04/05/17 at 23: 30 Glucose (Glutose) 15 gm Q15M PRN BUCCAL DECREASED GLUCOSE; Start 04/05/17 at 23:30 Pantoprazole (Protonix Iv) 40 mg DAILY@06 IV Last administered on 04/08/17 05 :47; Admin Dose 40 MG; Start 04/06/17 at 06:00 Ondansetron HCl 4 mg 4 mg Q4H PRN IV NAUSEA AND/OR VOMITING Last administered on 04/06/17 02:18; Admin Dose 4 MG; Start 04/05/17 at 23:30 Vancomycin HCl 100 ml @ 100 mls/hr Q24H IVPB Last administered on 04/08/17 16:16; Admin Dose 100 MLS/HR; Start 04/07/17 at 16:30 Levofloxacin/ Dextrose 100 ml @ 100 mls/hr Q48H IVPB Last administered on 23:22; Admin Dose 100 MLS/HR; Start 04/07/17 at 23:00 Dextrose (D10w) 1,000 ml @ 20 mls/hr Q24H IV Last administered on 04/07/17 08:41; Admin Dose 20 MLS/HR; Start 04/07/17 at 08:30 Diagnostic Test (Pha) 1 ea 1 ea 02 XX ; Start 04/08/17 at 02:00 Ferric Sodium Gluconate Complex/ Sodium Chloride (Ferrlecit/NS) 110 ml @ 110 mls/hr Q24H IVPB Last administered on 04/08/17 11:01; Admin Dose 110 MLS/HR; Start 04/08/17 at 10:00; Stop 04/12/17 at 10:59 Cyanocobalamin (Vitamin B12 Inj) 1,000 mcg DAILY IM Last administered on 11:01; Admin Dose 1,000 MCG; Start 04/08/17 at 09:00 Miscellaneous Information (*Rx Drug Level Order Reminder*) VANCOMYCIN TROUGH ON @ 530 ONCE ONCE XX ; Start 04/09/17 at 15:30; Stop 04/09/17 at 15:31 JOSY KENNEY MD Apr 08, 2017 18:15
--- NOTE | 2017-04-08 18:26 | CONS ---
Date/Time of Note Date/Time of Note DATE: 04/08/17 TIME: 18:24 Assessment/Plan Assessment/Plan Chief Complaint/Hosp Course Acute on chronic diastolic heart failure: EF previously normal. Received a fluid bolus on admission. Has been getting lasix intermittently Murmur: Possibly severe MR or TR (both moderate 2015) . If severe TR, may explain liver cirrhosis/ascites Cirrhosis c/b ascites: s/p paracentesis with 10L removed 04/06 Anemia: concern for bleed. Pt hesitant about endoscopy CAD s/p CABG PPM for SSS ([facility] 06/2015) Chronic afib not on anticoagulation presumably due to cirrhosis CKD HTN -extra lasix 20mg IV x1 now. If severe TR, bumex PO may be better choice -check echo to eval valvular function which may explain cirrhosis/CHF -continue ASA, coreg, isordil/hydralazine Problems: Consultation Date/Type/Reason Admit Date/Time Apr 05, 2017 at 21:03 Date of Consultation: Apr 08, 2017 Type of Consultation: Cardiology Reason for Consultation CHF Referring Provider: PAO FERGUSON MD Hx of Present Illness 86 yo F with a h/o CAD s/p CABG, PPM for SSS ([facility] 06/2015), cirrhosis c/b ascites, chronic diastolic heart failure, afib, CKD, HTN, who was admitted with N/V and was treated for UTI. She subsequently underwent 10L paracentesis with drop in Hgb and plan for possible EGD though pt/family apparently hesitant. The pt notes that she feels well today but will undergo another paracentesis tomorrow. She notes that the ascites has been ongoing for about 6 months. She denies orthopnea, PND, edema. She is able to ambulate and does have dyspnea. per HPI Past Medical History Medical History: angina, congestive heart failure, coronary artery disease, deep vein thrombosis, diabetes, gallstones ( s/p cholecystectomy.) Past Surgical History Past Surgical Hx: angioplasty, appendectomy, cholecystectomy, coronary bypass surgery, endoscopy, other (s/p carotid endarterectomy.) Social History Alcohol Use: none Smoking Status: Never smoker Drug Use: none Exam/Review of Systems Vital Signs Vitals Vital Signs Date Time Temp Pulse Resp B/P Pulse Ox O2 Delivery O2 Flow Rate FiO2 04/08/17 16:57 66 04/08/17 15:53 98.9 17 135/58 100 04/08/17 08:00 Nasal Cannula 2.0 Intake and Output 04/07/17 04/07/17 04/08/17 15:00 23:00 07:00 Intake Total 200 ml 500 ml Output Total 250 ml 400 ml Balance -50 ml 100 ml Exam Constitutional: alert, oriented Psych: nl mood/affect, no complaints Head: atraumatic, normocephalic Neck: jvd (10cm with distended EJ) Respiratory: crackles/rales, No clear to auscultation (crackles ) Cardiovascular: systolic murmur (3/6 HSM at RLSB), No edema, No regular rate and rhythm (IRIR) Gastrointestinal: distended, non-tender, soft Neurological: nl mental status, nl speech Skin: No rash or lesions Results Result Diagram: 04/08/17 0651 04/08/17 0650 Results 24 hrs Laboratory Tests Test 04/07/17 22:03 04/08/17 06:50 04/08/17 06:51 04/08/17 07:06 Bedside Glucose 119 Sodium Level 142 Potassium Level 4.5 Chloride Level 108 Carbon Dioxide Level 23 Anion Gap 16 Blood Urea Nitrogen 34 H Creatinine 1.49 H Glucose Level 105 # Calcium Level 8.7 Magnesium Level 1.8 Iron Level 13 L Total Iron Binding Capacity 200 L Percent Iron Saturation 7 L Ferritin 67.9 Total Bilirubin 0.6 Direct Bilirubin 0.00 Indirect Bilirubin 0.6 Aspartate Amino Transf (AST/SGOT) 12 L Alanine Aminotransferase (ALT/SGPT) 27 Alkaline Phosphatase 63 Total Protein 6.3 # Albumin 3.1 #L Globulin 3.20 Albumin/Globulin Ratio 0.96 Amylase Level 47 Vitamin B12 Level 232 L Folate 8.3 White Blood Count 3.3 L Red Blood Count 3.16 L Hemoglobin 8.5 L Hematocrit 28.3 L Mean Corpuscular Volume 89.6 Mean Corpuscular Hemoglobin 26.9 L Mean Corpuscular Hemoglobin Concent 30.0 L Red Cell Distribution Width 16.8 H Platelet Count 97 L Mean Platelet Volume 12.3 H Neutrophils % 78.7 H Lymphocytes % 10.8 L Monocytes % 6.9 Eosinophils % 3.0 Basophils % 0.0 Nucleated Red Blood Cells % 0.0 Neutrophils # 2.6 Lymphocytes # 0.4 L Monocytes # 0.2 L Eosinophils # 0.1 Basophils # 0.0 Nucleated Red Blood Cells # 0.0 Absolute Reticulocyte Count 0.050 Percent Reticulocyte Count 1.6 H Lab Scanned Report BLOOD TRANSFUSION Test 04/08/17 07:54 04/08/17 10:15 04/08/17 11:47 04/08/17 17:16 Bedside Glucose 114 119 127 Stool Occult Blood NEGATIVE Medications Medications Current Medications Amlodipine Besylate (Norvasc) 5 mg DAILY PO ; Start 04/06/17 at 09:00 Aspirin (Halfprin) 81 mg DAILY PO Last administered on 04/06/17 08:53; Admin Dose 81 MG; Start 04/06/17 at 09:00 Atorvastatin Calcium (Lipitor) 20 mg DAILY PO Last administered on 04/08/17 08:40; Admin Dose 20 MG; Start 04/06/17 at 09:00 Carvedilol (Coreg) 6.25 mg BID PO Last administered on 04/05/17 23:44; Admin Dose 6.25 MG; Start 04/05/17 at 23:00 Ergocalciferol (Drisdol) 50,000 unit Q14D PO Last administered on 04/05/17 23 :42; Admin Dose 50,000 UNIT; Start 04/05/17 at 23:00 Furosemide (Lasix) 40 mg DAILY PO Last administered on 04/08/17 08:35; Admin Dose 40 MG; Start 04/06/17 at 09:00 Hydralazine HCl (Apresoline) 25 mg TID PO Last administered on 04/08/17 12:35 ; Admin Dose 25 MG; Start 04/06/17 at 09:00 Isosorbide Dinitrate (Isordil) 20 mg TID PO Last administered on 04/08/17 12: 35; Admin Dose 20 MG; Start 04/06/17 at 09:00 Linagliptin (Tradjenta) 5 mg DAILY PO Last administered on 04/08/17 08:40; Admin Dose 5 MG; Start 04/06/17 at 09:00 Salmeterol Xinafoate/ Fluticasone (Advair 250/50 Diskus) 1 inh BID INH Last administered on 04/07/17 10:06; Admin Dose 1 INH; Start 04/05/17 at 23:00 Glucose (Glutose) 15 gm Q15M PRN PO DECREASED GLUCOSE; Start 04/05/17 at 23:30 Glucose (Glutose) 22.5 gm Q15M PRN PO DECREASED GLUCOSE; Start 04/05/17 at 23: 30 Dextrose (D50w Syringe) 25 ml Q15M PRN IV DECREASED GLUCOSE Last administered on 04/06/17 12:47; Admin Dose 25 ML; Start 04/05/17 at 23:30 Dextrose (D50w Syringe) 50 ml Q15M PRN IV DECREASED GLUCOSE Last administered on 04/07/17 07:58; Admin Dose 50 ML; Start 04/05/17 at 23:30 Glucagon (Glucagen) 1 mg Q15M PRN IM DECREASED GLUCOSE; Start 04/05/17 at 23: 30 Glucose (Glutose) 15 gm Q15M PRN BUCCAL DECREASED GLUCOSE; Start 04/05/17 at 23:30 Pantoprazole (Protonix Iv) 40 mg DAILY@06 IV Last administered on 04/08/17 05 :47; Admin Dose 40 MG; Start 04/06/17 at 06:00 Ondansetron HCl 4 mg 4 mg Q4H PRN IV NAUSEA AND/OR VOMITING Last administered on 04/06/17 02:18; Admin Dose 4 MG; Start 04/05/17 at 23:30 Vancomycin HCl 100 ml @ 100 mls/hr Q24H IVPB Last administered on 04/08/17 16:16; Admin Dose 100 MLS/HR; Start 04/07/17 at 16:30 Levofloxacin/ Dextrose 100 ml @ 100 mls/hr Q48H IVPB Last administered on 23:22; Admin Dose 100 MLS/HR; Start 04/07/17 at 23:00 Dextrose (D10w) 1,000 ml @ 20 mls/hr Q24H IV Last administered on 04/07/17 08:41; Admin Dose 20 MLS/HR; Start 04/07/17 at 08:30 Diagnostic Test (Pha) 1 ea 1 ea 02 XX ; Start 04/08/17 at 02:00 Ferric Sodium Gluconate Complex/ Sodium Chloride (Ferrlecit/NS) 110 ml @ 110 mls/hr Q24H IVPB Last administered on 04/08/17 11:01; Admin Dose 110 MLS/HR; Start 04/08/17 at 10:00; Stop 04/12/17 at 10:59 Cyanocobalamin (Vitamin B12 Inj) 1,000 mcg DAILY IM Last administered on t 11:01; Admin Dose 1,000 MCG; Start 04/08/17 at 09:00 Miscellaneous Information (*Rx Drug Level Order Reminder*) VANCOMYCIN TROUGH ON @ 530 ONCE ONCE XX ; Start 04/09/17 at 15:30; Stop 04/09/17 at 15:31 ROSY CHAN Apr 08, 2017 18:26
[2017-04-08] MEDS ORDERED: FUROSEMIDE 20 MG INJ IV ONE (19:00)
[2017-04-09] VITALS (10 sets, daily range): BP systolic 104–114; BP diastolic 43–71; PULSE 65; RESP 15–17
[2017-04-09] MEDS: ACCU-CHEK XX SCH (01:26)
[2017-04-09] MEDS: LEVOTHYROXINE 125 MCG TAB PO SCH (06:17)
[2017-04-09] MEDS: PANTOPRAZOLE 40 MG INJ IV SCH (06:17)
[2017-04-09 06:51] LABS: ABNORMAL IP MESSAGE 1; BASOPHILS % 0.3 % (0.0-2.0); EOSINOPHILS # 0.1 10^3/ul (0.0-0.5); EOSINOPHILS % 3.1 % (0.0-7.0); HEMATOCRIT 27.6 % (37.0-47.0); HEMOGLOBIN 8.3 g/dl (12.0-16.0); LYMPHOCYTES # 0.4 10^3/ul (0.8-2.9); LYMPHOCYTES % 12.4 % (15.0-51.0); MEAN CORPUSCULAR HEMOGLOBIN 26.8 pg (29.0-33.0); MEAN CORPUSCULAR HGB CONC 30.1 g/dl (32.0-37.0); MEAN PLATELET VOLUME 12.2 fl (7.4-10.4); MONOCYTE # 0.2 10^3/ul (0.3-0.9); MONOCYTES % 7.5 % (0.0-11.0); NEUTROPHIL # 2.5 10^3/ul (1.6-7.5); NEUTROPHILS % 76.4 % (39.0-77.0); PLATELET COUNT 97 10^3/UL (140-415); RED CELL DISTRIBUTION WIDTH 16.8 % (11.5-14.5); WHITE BLOOD COUNT 3.2 10^3/ul (4.8-10.8)
[2017-04-09 06:56] LABS: POSITIVE DIFF @See below
[2017-04-09] MEDS: INSULIN ASPART [NOVOLOG] 3 ML PEN SC SCH ×4 (07:55→20:56)
[2017-04-09 08:18] LABS: POTASSIUM 4.3 mmol/L (3.5-5.1)
[2017-04-09 08:19] LABS: ALBUMIN 2.5 g/dl (3.3-4.9); ALBUMIN/GLOBULIN RATIO 0.83; CALCIUM 8.3 mg/dl (8.4-10.2); CREATININE 1.51 mg/dl (0.44-1.00); TOTAL PROTEIN 5.5 g/dl (6.1-8.1)
[2017-04-09 08:32] LABS: BILIRUBIN,INDIRECT 0.4 mg/dl (0-1.1); BILIRUBIN,TOTAL 0.4 mg/dl (0.2-1.3)
[2017-04-09] MEDS: SPIRONOLACTONE 25 MG TAB PO SCH (09:30)
[2017-04-09] MEDS: FOLIC ACID 1 MG TAB PO SCH (09:30)
[2017-04-09] MEDS: LINAGLIPTIN 5 MG TABLET PO SCH (10:06)
[2017-04-09] MEDS: AMLODIPINE 5 MG TAB PO SCH (10:07)
[2017-04-09] MEDS: ASPIRIN (EC) 81 MG TAB PO SCH (10:07)
[2017-04-09] MEDS: FUROSEMIDE 40 MG TAB PO SCH (10:07)
[2017-04-09] MEDS: ATORVASTATIN 20 MG TAB PO SCH (10:07)
[2017-04-09] MEDS: DEXTROSE 10% 1,000 ML IV SCH (10:08)
[2017-04-09] MEDS: CYANOCOBALAMIN 1000 MCG INJ IM SCH (10:08)
[2017-04-09] MEDS: ISOSORBIDE DINITRATE 20 MG TAB PO SCH ×3 (10:08→20:52)
[2017-04-09] MEDS: SALMETEROL/FLUTICASONE 250/50 INHA INH SCH ×2 (10:09→20:53)
--- NOTE | 2017-04-09 10:11 | PN ---
Date/Time of Note Date/Time of Note DATE: 04/09/17 TIME: 09:57 Assessment/Plan VTE Prophylaxis VTE Prophylaxis Intervention: ambulation, anti-embolic stocking VTE Contraindication Reason: peripheral vascular disease Lines/Catheters IV Catheter Type (from Nrsg): [place] [employer] line still needed: No Urinary Cath still in place: No Reason Cath still needed: urinary retention Assessment/Plan Assessment/Plan 1. Drop of h/h from to 12/21- : s/p 2 units of PRBC TX;Am h/h pending. Dr Herndon was called; Protonix on. No melena; No Vomiting today. Anemia of chronic disease. Son(Louis) called me that the mother and the family don't want Gastroscopy. Explained in details that a this was an acute blood loss and althoughr there is no evidence of severe bleeding as of now but the chances of founding a source of bleed ing is higher when we do immediately. 2. Elevation of creatinine 1.4 to 1.5- 1,25 3. Diabetes type 2 better controlled. today hypoglycemic.Eating well. Accu- Chek every 6 hr's. 4. Gastroesophageal reflux disease. She is doing fine on Protonix, will continue. 5. Sepsis- improving. 6. History of recurrent ERCPs- refused new GI w/u. 7. Memory impairment. 8. Urinary incontinence with hematuria and uti 9. Status post CABG. 10. Morbid obesity. 11. Status post left-sided carotid endarterectomy. 12. Hypertension. Currently normotensive, currently on hypertensive medications. Carvedilol and Norvasc will be continued. 13.Ascitis- s/p 10liters of fluid removal. 14.Pannus 15.ALOC on and off-metabolic. 16.Nausea and vomiting 17.UTI-Awaiting the culture results. 18. Fever and chills stopped.Levaquin was started.Approximately 37536 cc of yellow fluid was obtained. The fluid was not sent to the lab for further analysis. 19.hypoglycemia 20.Constipation 21.portal hypertension 22.S/p pacemaker implantation 23.memory impairment 24.Low iron 25.Low vit "D". 26.low albumin 27.Tricuspid regurgitation changed Lasix to Bumex after discussion with . Cont'd Hospitalization Reason: as above Subjective 24 Hr Interval Summary Free Text/Dictation SOB improved. Abdominal distention got more prominent. Constitutional: disoriented, improved, poor po, requiring O2, No chills, No diaphoresis, No febrile, No no complaints, No other, No requiring IVF Eyes: redness, No discharge, No no complaints, No other, No pain, No visual change ENT: congestion, No bleeding, No discharge, No dysphagia, No no complaints, No other, No pain , No sore throat Respiratory: cough, shortness of breath, No no complaints, No other, No pain, No pleuritic pain, No sputum, No wheezing Cardiovascular: lightheadedness, orthopenea, palpitations, No chest pain, No edema, No no complaints, No other, No paroxysmal nocturnal dyspnea Gastrointestinal: constipation, decreased appetite, flatus, No blood, No diarrhea, No nausea, No no complaints, No other, No pain, No passing stool, No vomiting Genitourinary: dysuria Musculoskeletal: back pain, bone/joint pain Skin: bruising, erythema, pruritis, rash, skin lesions, No laceration, No no complaints, No other Neurologic: dizziness, headache, No confusion, No focal-weakness, No no complaints, No other, No seizure, No syncope Psychological: anxiety, confusion, depression, No nl mood/affect, No no complaints, No other, No suicidal Exam/Review of Systems Vital Signs Vitals Vital Signs Date Time Temp Pulse Resp B/P Pulse Ox O2 Delivery O2 Flow Rate FiO2 04/09/17 08:12 65 04/09/17 08:04 97.5 16 104/52 96 04/08/17 20:00 Nasal Cannula 2.0 Intake and Output 04/08/17 04/08/17 04/09/17 15:00 23:00 07:00 Intake Total 110 ml 900 ml Output Total 800 ml Balance 110 ml 100 ml Exam Constitutional: alert, distress, frail, obese, oriented, other (on and off losing awareness.), well developed Psych: anxiety, depression, No confusion, No nl mood/affect, No no complaints, No other, No suicidal Head: atraumatic Eyes: EOMI, PERRL ENMT: nl nasal mucosa & septum, tympanic membranes Neck: jvd, No bruits, No masses, No non-tender, No nuchal rigidity, No other, No supple , No thyromegaly Respiratory: diminished breath sounds, normal air movement, No clear to auscultation, No congested cough, No crackles/rales, No intercostal retraction, No labored breathing, No other, No respirations, No tactile fremitus, No wheezing Cardiovascular: bruits, edema, irregular rhythm, jugular venous distention (JVD ), murmurs/extra sounds, regular rate and rhythm (irregular.), systolic murmur Gastrointestinal: ascites, bowel sounds, distended, soft (more prominent ascitis.), splenomegaly Genitourinary - Female: CVA tenderness, No CMT, No nl adnexae, No nl external genitalia, No other, No uterus Musculoskeletal: joint tenderness, muscle tone, muscle weakness Extremities: cyanosis, edema Neurological: [employer] II-XII intact, confused, lethargic, nl speech, numbness, No DTR's symmetric, No focal weakness, No nl mental status, No nl strength, No other, No reflexes, No unresponsive Skin: nl turgor (decreased.), rash or lesions, No diaphoresis, No ecchymosis, No laceration, No other, No puncture Lymph: nl lymph nodes, No enlarged, No nontender, No other Results Result Diagram: 04/09/1761204/09/1713 Results 24 hrs Laboratory Tests Test 04/08/17 10:15 04/08/17 11:47 04/08/17 17:16 04/08/17 20:25 Stool Occult Blood NEGATIVE Bedside Glucose 119 127 150 Test 04/09/17 06:13 04/09/17 08:22 White Blood Count 3.2 L Red Blood Count 3.10 L Hemoglobin 8.3 L Hematocrit 27.6 L Mean Corpuscular Volume 89.0 Mean Corpuscular Hemoglobin 26.8 L Mean Corpuscular Hemoglobin Concent 30.1 L Red Cell Distribution Width 16.8 H Platelet Count 97 L Mean Platelet Volume 12.2 H Neutrophils % 76.4 Lymphocytes % 12.4 L Monocytes % 7.5 Eosinophils % 3.1 Basophils % 0.3 Nucleated Red Blood Cells % 0.0 Neutrophils # 2.5 Lymphocytes # 0.4 L Monocytes # 0.2 L Eosinophils # 0.1 Basophils # 0.0 Nucleated Red Blood Cells # 0.0 Sodium Level 139 Potassium Level 4.3 Chloride Level 109 Carbon Dioxide Level 23 Anion Gap 11 Blood Urea Nitrogen 36 H Creatinine 1.51 H Glucose Level 102 Calcium Level 8.3 L Total Bilirubin 0.4 Direct Bilirubin 0.00 Indirect Bilirubin 0.4 Aspartate Amino Transf (AST/SGOT) 12 L Alanine Aminotransferase (ALT/SGPT) 25 Alkaline Phosphatase 66 Total Protein 5.5 L Albumin 2.5 L Globulin 3.00 Albumin/Globulin Ratio 0.83 Bedside Glucose 106 Medications Medications Current Medications Amlodipine Besylate (Norvasc) 5 mg DAILY PO ; Start 04/06/17 at 09:00 Aspirin (Halfprin) 81 mg DAILY PO Last administered on 04/06/17 08:53; Admin Dose 81 MG; Start 04/06/17 at 09:00 Atorvastatin Calcium (Lipitor) 20 mg DAILY PO Last administered on 04/08/17 08:40; Admin Dose 20 MG; Start 04/06/17 at 09:00 Carvedilol (Coreg) 6.25 mg BID PO Last administered on 04/08/17 20:23; Admin Dose 6.25 MG; Start 04/05/17 at 23:00 Ergocalciferol (Drisdol) 50,000 unit Q14D PO Last administered on 04/05/17 23 :42; Admin Dose 50,000 UNIT; Start 04/05/17 at 23:00 Furosemide (Lasix) 40 mg DAILY PO Last administered on 04/08/17 08:35; Admin Dose 40 MG; Start 04/06/17 at 09:00 Hydralazine HCl (Apresoline) 25 mg TID PO Last administered on 04/08/17 20:23 ; Admin Dose 25 MG; Start 04/06/17 at 09:00 Isosorbide Dinitrate (Isordil) 20 mg TID PO Last administered on 04/08/17 20: 24; Admin Dose 20 MG; Start 04/06/17 at 09:00 Linagliptin (Tradjenta) 5 mg DAILY PO Last administered on 04/08/17 08:40; Admin Dose 5 MG; Start 04/06/17 at 09:00 Salmeterol Xinafoate/ Fluticasone (Advair 250/50 Diskus) 1 inh BID INH Last administered on 04/08/17 20:24; Admin Dose 1 INH; Start 04/05/17 at 23:00 Glucose (Glutose) 15 gm Q15M PRN PO DECREASED GLUCOSE; Start 04/05/17 at 23:30 Glucose (Glutose) 22.5 gm Q15M PRN PO DECREASED GLUCOSE; Start 04/05/17 at 23: 30 Dextrose (D50w Syringe) 25 ml Q15M PRN IV DECREASED GLUCOSE Last administered on 04/06/17 12:47; Admin Dose 25 ML; Start 04/05/17 at 23:30 Dextrose (D50w Syringe) 50 ml Q15M PRN IV DECREASED GLUCOSE Last administered on 04/07/17 07:58; Admin Dose 50 ML; Start 04/05/17 at 23:30 Glucagon (Glucagen) 1 mg Q15M PRN IM DECREASED GLUCOSE; Start 04/05/17 at 23: 30 Glucose (Glutose) 15 gm Q15M PRN BUCCAL DECREASED GLUCOSE; Start 04/05/17 at 23:30 Pantoprazole (Protonix Iv) 40 mg DAILY@06 IV Last administered on 04/09/17 06 :17; Admin Dose 40 MG; Start 04/06/17 at 06:00 Ondansetron HCl 4 mg 4 mg Q4H PRN IV NAUSEA AND/OR VOMITING Last administered on 04/06/17 02:18; Admin Dose 4 MG; Start 04/05/17 at 23:30 Vancomycin HCl 100 ml @ 100 mls/hr Q24H IVPB Last administered on 04/08/17 16:16; Admin Dose 100 MLS/HR; Start 04/07/17 at 16:30 Levofloxacin/ Dextrose 100 ml @ 100 mls/hr Q48H IVPB Last administered on 23:22; Admin Dose 100 MLS/HR; Start 04/07/17 at 23:00 Dextrose (D10w) 1,000 ml @ 20 mls/hr Q24H IV Last administered on 04/07/17 08:41; Admin Dose 20 MLS/HR; Start 04/07/17 at 08:30 Diagnostic Test (Pha) 1 ea 1 ea 02 XX ; Start 04/08/17 at 02:00 Ferric Sodium Gluconate Complex/ Sodium Chloride (Ferrlecit/NS) 110 ml @ 110 mls/hr Q24H IVPB Last administered on 04/08/17 11:01; Admin Dose 110 MLS/HR; Start 04/08/17 at 10:00; Stop 04/12/17 at 10:59 Cyanocobalamin (Vitamin B12 Inj) 1,000 mcg DAILY IM Last administered on t 11:01; Admin Dose 1,000 MCG; Start 04/08/17 at 09:00 Miscellaneous Information (*Rx Drug Level Order Reminder*) VANCOMYCIN TROUGH ON @ 530 ONCE ONCE XX ; Start 04/09/17 at 15:30; Stop 04/09/17 at 15:31 PAO FERGUSON MD Apr 09, 2017 10:08
--- NOTE | 2017-04-09 10:41 | CONS ---
Date/Time of Note Date/Time of Note DATE: 04/09/17 TIME: 10:37 Assessment/Plan Assessment/Plan Chief Complaint/Hosp Course Acute on chronic diastolic heart failure: EF normal. Improved Mod-severe TR: likely more severe though not well seen. ?worse after PPM placement. 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 Cirrhosis c/b ascites: s/p paracentesis with 10L removed 04/06 Anemia: concern for bleed. Did not agree to endoscopy. Hgb stable CAD s/p CABG PPM for SSS ([facility] 06/2015) Chronic afib not on anticoagulation presumably due to cirrhosis CKD HTN -switch lasix to bumex 1mg PO daily for better absorbability in setting of right heart failure with severe TR -continue ASA, coreg, isordil/hydralazine -repeat paracentesis, ?home today Problems: Consultation Date/Type/Reason Admit Date/Time Apr 05, 2017 at 21:03 Initial Consult Date 04/08/17 Type of Consultation: Cardiology Referring Provider: PAO FERGUSON MD 24 HR Interval Summary Free Text/Dictation No o/n events. Plan for paracentesis today and possible discharge. Exam/Review of Systems Vital Signs Vitals Vital Signs Date Time Temp Pulse Resp B/P Pulse Ox O2 Delivery O2 Flow Rate FiO2 04/09/17 08:12 65 04/09/17 08:04 97.5 16 104/52 96 04/08/17 20:00 Nasal Cannula 2.0 Intake and Output 04/08/17 04/08/17 04/09/17 15:00 23:00 07:00 Intake Total 110 ml 900 ml Output Total 800 ml Balance 110 ml 100 ml Exam Constitutional: alert, oriented Psych: nl mood/affect, no complaints Head: atraumatic, normocephalic Neck: jvd (8cm with large V wave, EJ less distended ) Respiratory: crackles/rales (mild ), No clear to auscultation Cardiovascular: regular rate and rhythm, systolic murmur (3/6 HSM LLSB), No edema Gastrointestinal: distended, non-tender, soft Neurological: nl mental status, nl speech Results Result Diagram: 04/09/17 0613 04/09/17 0613 Results 24 hrs Laboratory Tests Test 04/08/17 11:47 04/08/17:16 04/08/17 20:25 04/09/17 06:13 Bedside Glucose 119 127 150 White Blood Count 3.2 L Red Blood Count 3.10 L Hemoglobin 8.3 L Hematocrit 27.6 L Mean Corpuscular Volume 89.0 Mean Corpuscular Hemoglobin 26.8 L Mean Corpuscular Hemoglobin Concent 30.1 L Red Cell Distribution Width 16.8 H Platelet Count 97 L Mean Platelet Volume 12.2 H Neutrophils % 76.4 Lymphocytes % 12.4 L Monocytes % 7.5 Eosinophils % 3.1 Basophils % 0.3 Nucleated Red Blood Cells % 0.0 Neutrophils # 2.5 Lymphocytes # 0.4 L Monocytes # 0.2 L Eosinophils # 0.1 Basophils # 0.0 Nucleated Red Blood Cells # 0.0 Sodium Level 139 Potassium Level 4.3 Chloride Level 109 Carbon Dioxide Level 23 Anion Gap 11 Blood Urea Nitrogen 36 H Creatinine 1.51 H Glucose Level 102 Calcium Level 8.3 L Total Bilirubin 0.4 Direct Bilirubin 0.00 Indirect Bilirubin 0.4 Aspartate Amino Transf (AST/SGOT) 12 L Alanine Aminotransferase (ALT/SGPT) 25 Alkaline Phosphatase 66 Total Protein 5.5 L Albumin 2.5 L Globulin 3.00 Albumin/Globulin Ratio 0.83 Test 04/09/17 08:22 Bedside Glucose 106 Medications Medications Current Medications Amlodipine Besylate (Norvasc) 5 mg DAILY PO Last administered on 04/09/17 10: 07; Admin Dose 5 MG; Start 04/06/17 at 09:00 Aspirin (Halfprin) 81 mg DAILY PO Last administered on 04/09/17 10:07; Admin Dose 81 MG; Start 04/06/17 at 09:00 Atorvastatin Calcium (Lipitor) 20 mg DAILY PO Last administered on 04/09/17 10:07; Admin Dose 20 MG; Start 04/06/17 at 09:00 Carvedilol (Coreg) 6.25 mg BID PO Last administered on 04/09/17 10:07; Admin Dose 6.25 MG; Start 04/05/17 at 23:00 Ergocalciferol (Drisdol) 50,000 unit Q14D PO Last administered on 04/05/17 23 :42; Admin Dose 50,000 UNIT; Start 04/05/17 at 23:00 Furosemide (Lasix) 40 mg DAILY PO Last administered on 04/09/17 10:07; Admin Dose 40 MG; Start 04/06/17 at 09:00 Hydralazine HCl (Apresoline) 25 mg TID PO Last administered on 04/09/17 09:00 ; Admin Dose 25 MG; Start 04/06/17 at 09:00 Isosorbide Dinitrate (Isordil) 20 mg TID PO Last administered on 04/09/17 10: 08; Admin Dose 20 MG; Start 04/06/17 at 09:00 Linagliptin (Tradjenta) 5 mg DAILY PO Last administered on 04/09/17 10:06; Admin Dose 5 MG; Start 04/06/17 at 09:00 Salmeterol Xinafoate/ Fluticasone (Advair 250/50 Diskus) 1 inh BID INH Last administered on 04/09/17 10:09; Admin Dose 1 INH; Start 04/05/17 at 23:00 Glucose (Glutose) 15 gm Q15M PRN PO DECREASED GLUCOSE; Start 04/05/17 at 23:30 Glucose (Glutose) 22.5 gm Q15M PRN PO DECREASED GLUCOSE; Start 04/05/17 at 23: 30 Dextrose (D50w Syringe) 25 ml Q15M PRN IV DECREASED GLUCOSE Last administered on 04/06/17 12:47; Admin Dose 25 ML; Start 04/05/17 at 23:30 Dextrose (D50w Syringe) 50 ml Q15M PRN IV DECREASED GLUCOSE Last administered on 04/07/17 07:58; Admin Dose 50 ML; Start 04/05/17 at 23:30 Glucagon (Glucagen) 1 mg Q15M PRN IM DECREASED GLUCOSE; Start 04/05/17 at 23: 30 Glucose (Glutose) 15 gm Q15M PRN BUCCAL DECREASED GLUCOSE; Start 04/05/17 at 23:30 Pantoprazole (Protonix Iv) 40 mg DAILY@06 IV Last administered on 04/09/17 06 :17; Admin Dose 40 MG; Start 04/06/17 at 06:00 Ondansetron HCl 4 mg 4 mg Q4H PRN IV NAUSEA AND/OR VOMITING Last administered on 04/06/17 02:18; Admin Dose 4 MG; Start 04/05/17 at 23:30 Vancomycin HCl 100 ml @ 100 mls/hr Q24H IVPB Last administered on 04/08/17 16:16; Admin Dose 100 MLS/HR; Start 04/07/17 at 16:30 Levofloxacin/ Dextrose 100 ml @ 100 mls/hr Q48H IVPB Last administered on 23:22; Admin Dose 100 MLS/HR; Start 04/07/17 at 23:00 Dextrose (D10w) 1,000 ml @ 20 mls/hr Q24H IV Last administered on 04/09/17 10:08; Admin Dose 20 MLS/HR; Start 04/07/17 at 08:30 Diagnostic Test (Pha) 1 ea 1 ea 02 XX ; Start 04/08/17 at 02:00 Ferric Sodium Gluconate Complex/ Sodium Chloride (Ferrlecit/NS) 110 ml @ 110 mls/hr Q24H IVPB Last administered on 04/08/17 11:01; Admin Dose 110 MLS/HR; Start 04/08/17 at 10:00; Stop 04/12/17 at 10:59 Cyanocobalamin (Vitamin B12 Inj) 1,000 mcg DAILY IM Last administered on 10:08; Admin Dose 1,000 MCG; Start 04/08/17 at 09:00 Miscellaneous Information (*Rx Drug Level Order Reminder*) VANCOMYCIN TROUGH ON @ 530 ONCE ONCE XX ; Start 04/09/17 at 15:30; Stop 04/09/17 at 15:31 Spironolactone (Aldactone) 25 mg DAILY PO ; Start 04/09/17 at 09:30; Status UNV Levothyroxine Sodium (Synthroid) 137 mcg DAILY PO ; Start 04/09/17 at 09:30; Status UNV Folic Acid (Folic Acid) 1 mg DAILY PO ; Start 04/09/17 at 09:30; Status UNV ROSY CHAN Apr 09, 2017 10:41
[2017-04-09] MEDS ORDERED: LEVOTHYROXINE 25 MCG TAB PO SCH (11:00)
--- NOTE | 2017-04-09 11:59 | CONS ---
Date/Time of Note Date/Time of Note DATE: 04/09/17 TIME: 11:58 Assessment/Plan Assessment/Plan Additional Assessment/Plan Additional Assessment/Plan IMPRESSION: 1. Cirrhosis of liver. 2. Massive ascites, status post paracentesis, 10 liters of fluid was removed without albumin transfusion. 3. Gallstone. 4. Nausea and vomiting. 5. Deep venous thrombosis by history. 6. Status post coronary artery bypass graft. 7. Diabetes mellitus. 8. Angioplasty. 9. Chronic obstructive pulmonary disease. 10. Hypertension 11. Anemia. 12. Status post pacemaker implantation. Plan Patient declined EGD. This was for the surveillance of esophageal varicose vein and also find out the cause of GI blood loss. Patient is a B12 deficiency needs B12 injection. Iron saturation also was low. Discussed with primary MD Consultation Date/Type/Reason Admit Date/Time Apr 05, 2017 at 21:03 Type of Consultation: Cardiology Referring Provider: PAO FERGUSON MD 24 HR Interval Summary Constitutional: improved, no complaints Exam/Review of Systems Vital Signs Vitals Vital Signs Date Time Temp Pulse Resp B/P Pulse Ox O2 Delivery O2 Flow Rate FiO2 04/09/17 11:46 97.8 65 16 106/71 97 04/08/17 20:00 Nasal Cannula 2.0 Intake and Output 04/08/17 04/08/17 04/09/17 15:00 23:00 07:00 Intake Total 110 ml 900 ml Output Total 800 ml Balance 110 ml 100 ml Exam Constitutional: alert, oriented, well developed Psych: nl mood/affect, no complaints Head: atraumatic, normocephalic Eyes: EOMI, PERRL, nl conjunctiva, nl lids, nl sclera ENMT: nl external ears & nose, nl lips & teeth, nl nasal mucosa & septum Neck: non-tender, supple Respiratory: clear to auscultation, normal air movement Cardiovascular: nl pulses, regular rate and rhythm Gastrointestinal: nl liver, spleen, non-tender, soft Musculoskeletal: nl extremities to inspection, nl gait and stance Extremities: normal pulses Neurological: [employer] II-XII intact, nl mental status, nl speech, nl strength Skin: nl turgor, No rash or lesions Lymph: nl lymph nodes Results Result Diagram: 04/09/17 0613 04/09/17 0613 Results 24 hrs Laboratory Tests Test 04/08/17 17:16 04/08/17 20:25 04/09/17 06:13 04/09/17 08:22 Bedside Glucose 127 150 106 White Blood Count 3.2 L Red Blood Count 3.10 L Hemoglobin 8.3 L Hematocrit 27.6 L Mean Corpuscular Volume 89.0 Mean Corpuscular Hemoglobin 26.8 L Mean Corpuscular Hemoglobin Concent 30.1 L Red Cell Distribution Width 16.8 H Platelet Count 97 L Mean Platelet Volume 12.2 H Neutrophils % 76.4 Lymphocytes % 12.4 L Monocytes % 7.5 Eosinophils % 3.1 Basophils % 0.3 Nucleated Red Blood Cells % 0.0 Neutrophils # 2.5 Lymphocytes # 0.4 L Monocytes # 0.2 L Eosinophils # 0.1 Basophils # 0.0 Nucleated Red Blood Cells # 0.0 Sodium Level 139 Potassium Level 4.3 Chloride Level 109 Carbon Dioxide Level 23 Anion Gap 11 Blood Urea Nitrogen 36 H Creatinine 1.51 H Glucose Level 102 Calcium Level 8.3 L Total Bilirubin 0.4 Direct Bilirubin 0.00 Indirect Bilirubin 0.4 Aspartate Amino Transf (AST/SGOT) 12 L Alanine Aminotransferase (ALT/SGPT) 25 Alkaline Phosphatase 66 Total Protein 5.5 L Albumin 2.5 L Globulin 3.00 Albumin/Globulin Ratio 0.83 Medications Medications Current Medications Amlodipine Besylate (Norvasc) 5 mg DAILY PO Last administered on 04/09/17 10: 07; Admin Dose 5 MG; Start 04/06/17 at 09:00 Aspirin (Halfprin) 81 mg DAILY PO Last administered on 04/09/17 10:07; Admin Dose 81 MG; Start 04/06/17 at 09:00 Atorvastatin Calcium (Lipitor) 20 mg DAILY PO Last administered on 04/09/17 10:07; Admin Dose 20 MG; Start 04/06/17 at 09:00 Carvedilol (Coreg) 6.25 mg BID PO Last administered on 04/09/17 10:07; Admin Dose 6.25 MG; Start 04/05/17 at 23:00 Ergocalciferol (Drisdol) 50,000 unit Q14D PO Last administered on 04/05/17 23 :42; Admin Dose 50,000 UNIT; Start 04/05/17 at 23:00 Hydralazine HCl (Apresoline) 25 mg TID PO Last administered on 04/09/17 09:00 ; Admin Dose 25 MG; Start 04/06/17 at 09:00 Isosorbide Dinitrate (Isordil) 20 mg TID PO Last administered on 04/09/17 10: 08; Admin Dose 20 MG; Start 04/06/17 at 09:00 Linagliptin (Tradjenta) 5 mg DAILY PO Last administered on 04/09/17 10:06; Admin Dose 5 MG; Start 04/06/17 at 09:00 Salmeterol Xinafoate/ Fluticasone (Advair 250/50 Diskus) 1 inh BID INH Last administered on 04/09/17 10:09; Admin Dose 1 INH; Start 04/05/17 at 23:00 Glucose (Glutose) 15 gm Q15M PRN PO DECREASED GLUCOSE; Start 04/05/17 at 23:30 Glucose (Glutose) 22.5 gm Q15M PRN PO DECREASED GLUCOSE; Start 04/05/17 at 23: 30 Dextrose (D50w Syringe) 25 ml Q15M PRN IV DECREASED GLUCOSE Last administered on 04/06/17 12:47; Admin Dose 25 ML; Start 04/05/17 at 23:30 Dextrose (D50w Syringe) 50 ml Q15M PRN IV DECREASED GLUCOSE Last administered on 04/07/17 07:58; Admin Dose 50 ML; Start 04/05/17 at 23:30 Glucagon (Glucagen) 1 mg Q15M PRN IM DECREASED GLUCOSE; Start 04/05/17 at 23: 30 Glucose (Glutose) 15 gm Q15M PRN BUCCAL DECREASED GLUCOSE; Start 04/05/17 at 23:30 Pantoprazole (Protonix Iv) 40 mg DAILY@06 IV Last administered on 04/09/17 06 :17; Admin Dose 40 MG; Start 04/06/17 at 06:00 Ondansetron HCl 4 mg 4 mg Q4H PRN IV NAUSEA AND/OR VOMITING Last administered on 04/06/17 02:18; Admin Dose 4 MG; Start 04/05/17 at 23:30 Vancomycin HCl 100 ml @ 100 mls/hr Q24H IVPB Last administered on 04/08/17 16:16; Admin Dose 100 MLS/HR; Start 04/07/17 at 16:30 Levofloxacin/ Dextrose 100 ml @ 100 mls/hr Q48H IVPB Last administered on 23:22; Admin Dose 100 MLS/HR; Start 04/07/17 at 23:00 Dextrose (D10w) 1,000 ml @ 20 mls/hr Q24H IV Last administered on 04/09/17 10:08; Admin Dose 20 MLS/HR; Start 04/07/17 at 08:30 Diagnostic Test (Pha) 1 ea 1 ea 02 XX ; Start 04/08/17 at 02:00 Ferric Sodium Gluconate Complex/ Sodium Chloride (Ferrlecit/NS) 110 ml @ 110 mls/hr Q24H IVPB Last administered on 04/08/17 11:01; Admin Dose 110 MLS/HR; Start 04/08/17 at 10:00; Stop 04/12/17 at 10:59 Cyanocobalamin (Vitamin B12 Inj) 1,000 mcg DAILY IM Last administered on 10:08; Admin Dose 1,000 MCG; Start 04/08/17 at 09:00 Miscellaneous Information (*Rx Drug Level Order Reminder*) VANCOMYCIN TROUGH ON @ 530 ONCE ONCE XX ; Start 04/09/17 at 15:30; Stop 04/09/17 at 15:31 Spironolactone (Aldactone) 25 mg DAILY PO ; Start 04/09/17 at 09:30 Levothyroxine Sodium (Synthroid) 137 mcg DAILY PO ; Start 04/10/17 at 09:00 Folic Acid (Folic Acid) 1 mg DAILY PO ; Start 04/09/17 at 09:30 Levothyroxine Sodium (Synthroid) 12.5 mcg ONCE PO ; Start 04/09/17 at 11:00; Stop 04/09/17 at 23:00 Bumetanide (Bumex) 1 mg DAILY PO ; Start 04/10/17 at 09:00 JOSY KENNEY MD Apr 09, 2017 11:59
[2017-04-09] MEDS: SOD FERRIC GLUC COMPLX 125 MG in SOD CHLORIDE 0.9% 100 ML IVPB SCH (12:39)
--- NOTE | 2017-04-09 16:51 | RADRPT ---
Echocardiogram Report Patient Name: LIZETTE NAVA Gender: Female Date: 1930 Study Date: 09-Apr-2017 Plating Tank Operator: Kimberly Schneider [facility] Location: 523 Ref. Physician: ROSY PATRICIO Quality: Adequate Procedures: Transthoracic echocardiogram with complete 2D, M-Mode, and doppler examination. Indications: Congestive Heart Failure, hx of CABG, PPM. 2D/M Mode Doppler Measurement Value Normal Ranges Measurement Value Normal Ranges LVIDd 2D 4.5 3.5 - 5.6 cm AV Peak Seven 1.8 m/sec LVIDs 2D 2.8 2.1 - 4.1 cm AV Peak PG 12.9 mmHg LVPWd 2D 1.1 0.6 - 1.1 cm LVOT Peak Seven 1.1 m/sec IVSd 2D 1.0 0.6 - 1.1 cm LVOT Peak PG 5.3 mmHg AoR Diam 2D 2.6 2.0 - 3.7 cm MV E Peak Seven 1.4 m/sec EDV 2D 93.9 cm3 MV A Peak Seven 0.7 m/sec ESV 2D 22.2 cm3 MV E/A 1.9 LA Dimen 2D 4.7 2.3 - 4.0 cm MV PHT 71.8 msec MV Peak Seven 2.0 m/sec MV Peak PG 15.3 mmHg MV Mean Seven 0.9 m/sec MV Mean PG 4.0 mmHg MV Decel Time 253 msec MV Decel Ward 5 MV E/A 1.9 MV PHT 71.8 msec MV VTI 42.7 cm MVA PHT 3.1 cm2 TR Peak Seven 3.8 m/sec TR Peak PG 56.5 mmHg RVSP 72.0 mmHg Findings Left Ventricle: Normal left ventricular systolic function. Normal left ventricular cavity size. Normal left ventricular wall thickness. Ejection fraction is visually estimated at 60 %. Abnormal septal motion consistent with prior cardiac surgery. Right Ventricle: Moderate enlargement of right ventricle. Mild right ventricular hypokinesis. Left Atrium: There is severe enlargement of left atrium. Right Atrium: There is severe enlargement of right atrium. Mitral Valve: Moderate mitral leaflet calcification. Severe mitral annular calcification. Mild to moderate mitral valve regurgitation. Aortic Valve: Aortic sclerosis without significant stenosis. Aortic cusps appear mildly calcified. No aortic regurgitation. Tricuspid Valve: Estimated peak PA systolic pressure 72 mmHg. There is moderate to severe tricuspid regurgitation. Pulmonic Valve: Normal pulmonic valve appearance. There is moderate pulmonic regurgitation. Pericardium: Normal pericardium with no significant pericardial effusion. Aorta: Normal aortic root. IVC: Dilated IVC without respiratory collapse consistent with elevated right atrial pressure. Conclusions Normal left ventricular systolic function. Normal left ventricular cavity size. Normal left ventricular wall thickness. Ejection fraction is visually estimated at 60 %. Abnormal septal motion consistent with prior cardiac surgery. Moderate enlargement of right ventricle. Mild right ventricular hypokinesis. Pacemaker leads seen. Severe mitral annular calcification. Mild to moderate mitral valve regurgitation. Moderate to possibly severe tricuspid regurgitation. Severe biatrial enlargement. Severe pulmonary HTN with estimated peak PA systolic pressure 72 mmHg based on RA pressure of 15 mmHg. Electronically Signed By: Rosy Patricio 09-Apr-2017 09:22:44 -0800 Patient Name: LIZETTE NAVA Study Date: 09-Apr-2017 [id number]
[2017-04-09] MEDS: VANCOMYCIN 500MG/NS (PMX) 100 ML IVPB SCH (16:53)
--- NOTE | 2017-04-09 18:17 | CONS ---
Date/Time of Note Date/Time of Note DATE: 04/09/17 TIME: 18:17 Consultation Date/Type/Reason Admit Date/Time Apr 05, 2017 at 21:03 [facility] Referring Provider: PAO FERGUSON MD Exam/Review of Systems Vital Signs Vitals Vital Signs Date Time Temp Pulse Resp B/P Pulse Ox O2 Delivery O2 Flow Rate FiO2 04/09/17 16:05 65 04/09/17 15:46 97.7 15 114/57 94 04/08/17 20:00 Nasal Cannula 2.0 Intake and Output 04/08/17 04/08/17 04/09/17 15:00 23:00 07:00 Intake Total 110 ml 900 ml Output Total 800 ml Balance 110 ml 100 ml Results Result Diagram: 04/09/17 0613 04/09/17 0613 Results 24 hrs Laboratory Tests Test 04/08/17 20:25 04/09/17 06:13 04/09/17 08:22 04/09/17 12:40 Bedside Glucose 150 106 132 White Blood Count 3.2 L Red Blood Count 3.10 L Hemoglobin 8.3 L Hematocrit 27.6 L Mean Corpuscular Volume 89.0 Mean Corpuscular Hemoglobin 26.8 L Mean Corpuscular Hemoglobin Concent 30.1 L Red Cell Distribution Width 16.8 H Platelet Count 97 L Mean Platelet Volume 12.2 H Neutrophils % 76.4 Lymphocytes % 12.4 L Monocytes % 7.5 Eosinophils % 3.1 Basophils % 0.3 Nucleated Red Blood Cells % 0.0 Neutrophils # 2.5 Lymphocytes # 0.4 L Monocytes # 0.2 L Eosinophils # 0.1 Basophils # 0.0 Nucleated Red Blood Cells # 0.0 Sodium Level 139 Potassium Level 4.3 Chloride Level 109 Carbon Dioxide Level 23 Anion Gap 11 Blood Urea Nitrogen 36 H Creatinine 1.51 H Glucose Level 102 Calcium Level 8.3 L Total Bilirubin 0.4 Direct Bilirubin 0.00 Indirect Bilirubin 0.4 Aspartate Amino Transf (AST/SGOT) 12 L Alanine Aminotransferase (ALT/SGPT) 25 Alkaline Phosphatase 66 Total Protein 5.5 L Albumin 2.5 L Globulin 3.00 Albumin/Globulin Ratio 0.83 Test 04/09/17 15:15 04/09/17 17:47 Vancomycin Level Trough 12.3 Bedside Glucose 172 Medications Medications Current Medications Amlodipine Besylate (Norvasc) 5 mg DAILY PO Last administered on 04/09/17 10: 07; Admin Dose 5 MG; Start 04/06/17 at 09:00 Aspirin (Halfprin) 81 mg DAILY PO Last administered on 04/09/17 10:07; Admin Dose 81 MG; Start 04/06/17 at 09:00 Atorvastatin Calcium (Lipitor) 20 mg DAILY PO Last administered on 04/09/17 10:07; Admin Dose 20 MG; Start 04/06/17 at 09:00 Carvedilol (Coreg) 6.25 mg BID PO Last administered on 04/09/17 10:07; Admin Dose 6.25 MG; Start 04/05/17 at 23:00 Ergocalciferol (Drisdol) 50,000 unit Q14D PO Last administered on 04/05/17 23 :42; Admin Dose 50,000 UNIT; Start 04/05/17 at 23:00 Hydralazine HCl (Apresoline) 25 mg TID PO Last administered on 04/09/17 12:42 ; Admin Dose 25 MG; Start 04/06/17 at 09:00 Isosorbide Dinitrate (Isordil) 20 mg TID PO Last administered on 04/09/17 12: 39; Admin Dose 20 MG; Start 04/06/17 at 09:00 Linagliptin (Tradjenta) 5 mg DAILY PO Last administered on 04/09/17 10:06; Admin Dose 5 MG; Start 04/06/17 at 09:00 Salmeterol Xinafoate/ Fluticasone (Advair 250/50 Diskus) 1 inh BID INH Last administered on 04/09/17 10:09; Admin Dose 1 INH; Start 04/05/17 at 23:00 Glucose (Glutose) 15 gm Q15M PRN PO DECREASED GLUCOSE; Start 04/05/17 at 23:30 Glucose (Glutose) 22.5 gm Q15M PRN PO DECREASED GLUCOSE; Start 04/05/17 at 23: 30 Dextrose (D50w Syringe) 25 ml Q15M PRN IV DECREASED GLUCOSE Last administered on 04/06/17 12:47; Admin Dose 25 ML; Start 04/05/17 at 23:30 Dextrose (D50w Syringe) 50 ml Q15M PRN IV DECREASED GLUCOSE Last administered on 04/07/17 07:58; Admin Dose 50 ML; Start 04/05/17 at 23:30 Glucagon (Glucagen) 1 mg Q15M PRN IM DECREASED GLUCOSE; Start 04/05/17 at 23: 30 Glucose (Glutose) 15 gm Q15M PRN BUCCAL DECREASED GLUCOSE; Start 04/05/17 at 23:30 Pantoprazole (Protonix Iv) 40 mg DAILY@06 IV Last administered on 04/09/17 06 :17; Admin Dose 40 MG; Start 04/06/17 at 06:00 Ondansetron HCl 4 mg 4 mg Q4H PRN IV NAUSEA AND/OR VOMITING Last administered on 04/06/17 02:18; Admin Dose 4 MG; Start 04/05/17 at 23:30 Vancomycin HCl 100 ml @ 100 mls/hr Q24H IVPB Last administered on 04/09/17 16:53; Admin Dose 100 MLS/HR; Start 04/07/17 at 16:30 Levofloxacin/ Dextrose 100 ml @ 100 mls/hr Q48H IVPB Last administered on 23:22; Admin Dose 100 MLS/HR; Start 04/07/17 at 23:00 Dextrose (D10w) 1,000 ml @ 20 mls/hr Q24H IV Last administered on 04/09/17 10:08; Admin Dose 20 MLS/HR; Start 04/07/17 at 08:30 Diagnostic Test (Pha) 1 ea 1 ea 02 XX ; Start 04/08/17 at 02:00 Ferric Sodium Gluconate Complex/ Sodium Chloride (Ferrlecit/NS) 110 ml @ 110 mls/hr Q24H IVPB Last administered on 04/09/17 12:39; Admin Dose 110 MLS/HR; Start 04/08/17 at 10:00; Stop 04/12/17 at 10:59 Cyanocobalamin (Vitamin B12 Inj) 1,000 mcg DAILY IM Last administered on 10:08; Admin Dose 1,000 MCG; Start 04/08/17 at 09:00 Spironolactone (Aldactone) 25 mg DAILY PO Last administered on 04/09/17 09:30 ; Admin Dose 25 MG; Start 04/09/17 at 09:30 Levothyroxine Sodium (Synthroid) 137 mcg DAILY PO ; Start 04/10/17 at 09:00 Folic Acid (Folic Acid) 1 mg DAILY PO Last administered on 04/09/17 09:30; Admin Dose 1 MG; Start 04/09/17 at 09:30 Levothyroxine Sodium (Synthroid) 12.5 mcg ONCE PO Last administered on 12:38; Admin Dose 12.5 MCG; Start 04/09/17 at 11:00; Stop 04/09/17 at 23: 00 Bumetanide (Bumex) 1 mg DAILY PO ; Start 04/10/17 at 09:00 JOSE R CANCINO MD Apr 09, 2017 18:17
[2017-04-09] MEDS: LEVOFLOXACIN 500MG/D5W (PMX) 100 ML IVPB SCH (23:31)
[2017-04-10] VITALS (11 sets, daily range): BP systolic 118–138; BP diastolic 58–64; PULSE 65; RESP 18–19
[2017-04-10] MEDS: DEXTROSE 10% 1,000 ML IV SCH (01:26)
[2017-04-10] MEDS: ACCU-CHEK XX SCH (01:32)
[2017-04-10] MEDS: PANTOPRAZOLE 40 MG INJ IV SCH (05:18)
--- NOTE | 2017-04-10 08:46 | PN ---
Date/Time of Note Date/Time of Note DATE: 04/10/17 TIME: 08:39 Assessment/Plan VTE Prophylaxis VTE Prophylaxis Intervention: ambulation, anti-embolic stocking VTE Contraindication Reason: peripheral vascular disease Lines/Catheters IV Catheter Type (from Nrsg): Peripheral IV Central line still needed: No Urinary Cath still in place: No Reason Cath still needed: urinary retention Assessment/Plan Assessment/Plan 1. Drop of h/h from to 12/21- : s/p 2 units of PRBC TX;Am h/h pending. Dr Herndon was called; Protonix on. No melena; No Vomiting today. Anemia of chronic disease. Family refused Gastroscopy again. 2. Elevation of creatinine 1.4 to 1.5- 1,25 3. Diabetes type 2 better controlled. today hypoglycemic.Eating well. Accu- Chek every 6 hr's. 4. Gastroesophageal reflux disease. She is doing fine on Protonix, will continue. 5. Sepsis- improving. 6. History of recurrent ERCPs- refused new GI w/u. 7. Memory impairment. 8. Urinary incontinence with hematuria and uti 9. Status post CABG. 10. Morbid obesity. 11. Status post left-sided carotid endarterectomy. 12. Hypertension. Currently normotensive, currently on hypertensive medications. Carvedilol and Norvasc will be continued. 13.Ascites- s/p 10liters of fluid removal.Now undergoing another paracentesis. 14.Pannus 15.ALOC on and off-metabolic. 16.Nausea and vomiting 17.UTI-Awaiting the culture results. 18. Fever and chills stopped.Levaquin was started.Approximately 86720 cc of yellow fluid was obtained. The fluid was not sent to the lab for further analysis. 19.hypoglycemia 20.Constipation 21.portal hypertension 22.S/p pacemaker implantation 23.memory impairment 24.Low iron 25.Low vit "D". 26.low albumin 27.Tricuspid regurgitation changed Lasix to Bumex after discussion with . Subjective 24 Hr Interval Summary Free Text/Dictation I feel better. I can't get up without help. Constitutional: improved, poor po, requiring O2, No chills, No diaphoresis, No disoriented, No febrile, No no complaints, No other, No requiring IVF Eyes: redness (paleness.), No discharge, No no complaints, No other, No pain, No visual change ENT: congestion, dysphagia, No bleeding, No discharge, No no complaints, No other, No pain, No sore throat Respiratory: cough, shortness of breath, No no complaints, No other, No pain, No pleuritic pain, No sputum, No wheezing Cardiovascular: edema, lightheadedness, orthopenea, palpitations, paroxysmal nocturnal dyspnea, No chest pain, No no complaints, No other Gastrointestinal: constipation, decreased appetite, flatus, No blood, No diarrhea, No nausea, No no complaints, No other, No pain, No passing stool, No vomiting Genitourinary: dysuria, No bleeding, No discharge, No flank pain, No hematuria, No no complaints, No other Musculoskeletal: back pain, bone/joint pain, neck pain Skin: pruritis, No bruising, No erythema, No laceration, No no complaints, No other, No rash , No skin lesions Neurologic: dizziness, headache Endocrine: dry skin, No no complaints, No other, No polydypsia, No polyuria, No temp intolerance Psychological: anxiety, confusion, No depression, No nl mood/affect, No no complaints, No other, No suicidal Exam/Review of Systems Vital Signs Vitals Vital Signs Date Time Temp Pulse Resp B/P Pulse Ox O2 Delivery O2 Flow Rate FiO2 04/10/17 07:47 97.4 65 18 138/60 95 04/08/17 20:00 Nasal Cannula 2.0 Intake and Output 04/09/17 04/09/17 04/10/17 15:00 23:00 07:00 Intake Total 850 ml 120 ml Output Total 3 ml 150 ml Balance 847 ml -30 ml Exam Constitutional: distress, frail, obese, oriented, well developed, No alert, No non-verbal, No other Psych: anxiety, No confusion, No depression, No nl mood/affect, No no complaints, No other, No suicidal Head: atraumatic, No hematomas, No lacerations, No normocephalic, No other Eyes: EOMI, PERRL, nl lids, No fundi, disc, No icteric, No nl conjunctiva, No nl sclera, No other ENMT: No intubated, No mucosa pink and moist, No nl external ears & nose, No nl lips & teeth, No nl nasal mucosa & septum, No other, No tympanic membranes Neck: bruits, jvd, nuchal rigidity, No masses, No non-tender, No other, No supple, No thyromegaly Respiratory: congested cough, crackles/rales, diminished breath sounds, No clear to auscultation, No intercostal retraction, No labored breathing, No normal air movement, No other, No respirations, No tactile fremitus, No wheezing Cardiovascular: bruits, edema, No S3, No S4, No diastolic murmur, No gallop, No irregular rhythm, No jugular venous distention (JVD), No murmurs/extra sounds, No nl pulses, No other , No regular rate and rhythm, No rub, No systolic murmur Gastrointestinal: ascites, bowel sounds, distended, soft, surgical scars, No firm, No hepatomegaly, No mass, No nl liver, spleen, No non-tender, No other, No rebound or guarding, No splenomegaly, No tender Genitourinary - Female: No CMT, No CVA tenderness, No nl adnexae, No nl external genitalia, No other, No uterus Musculoskeletal: joint tenderness, muscle tone, muscle weakness, range of motion, No nl extremities to inspection, No nl gait and stance, No other, No spine non-tender, No swelling Extremities: calf tenderness, edema, No clubbing, No cyanosis, No normal pulses, No other, No palpable cord, No pitting pedal edema, No tenderness Neurological: [employer] II-XII intact (decreasedd eharing.), nl strength, numbness Skin: nl turgor (decreased turgor.), No diaphoresis, No ecchymosis, No laceration, No other, No puncture, No rash or lesions Results Result Diagram: 04/09/1761204/09/17 0613 Results 24 hrs Laboratory Tests Test 04/09/17 12:40 04/09/17 15:15 04/09/17 17:47 04/09/17 20:49 Bedside Glucose 132 172 192 Vancomycin Level Trough 12.3 Test 04/10/17 01:32 04/10/17 07:49 Bedside Glucose 167 159 Medications Medications Current Medications Amlodipine Besylate (Norvasc) 5 mg DAILY PO Last administered on 04/09/17t 10: 07; Admin Dose 5 MG; Start 04/06/17 at 09:00 Aspirin (Halfprin) 81 mg DAILY PO Last administered on 04/09/17 10:07; Admin Dose 81 MG; Start 04/06/17 at 09:00 Atorvastatin Calcium (Lipitor) 20 mg DAILY PO Last administered on 04/09/17 10:07; Admin Dose 20 MG; Start 04/06/17 at 09:00 Carvedilol (Coreg) 6.25 mg BID PO Last administered on 04/09/17 10:07; Admin Dose 6.25 MG; Start 04/05/17 at 23:00 Ergocalciferol (Drisdol) 50,000 unit Q14D PO Last administered on 04/05/17 23 :42; Admin Dose 50,000 UNIT; Start 04/05/17 at 23:00 Hydralazine HCl (Apresoline) 25 mg TID PO Last administered on 04/09/17 12:42 ; Admin Dose 25 MG; Start 04/06/17 at 09:00 Isosorbide Dinitrate (Isordil) 20 mg TID PO Last administered on 04/09/17 12: 39; Admin Dose 20 MG; Start 04/06/17 at 09:00 Linagliptin (Tradjenta) 5 mg DAILY PO Last administered on 04/09/17 10:06; Admin Dose 5 MG; Start 04/06/17 at 09:00 Salmeterol Xinafoate/ Fluticasone (Advair 250/50 Diskus) 1 inh BID INH Last administered on 04/09/17 20:53; Admin Dose 1 INH; Start 04/05/17 at 23:00 Glucose (Glutose) 15 gm Q15M PRN PO DECREASED GLUCOSE; Start 04/05/17 at 23:30 Glucose (Glutose) 22.5 gm Q15M PRN PO DECREASED GLUCOSE; Start 04/05/17 at 23: 30 Dextrose (D50w Syringe) 25 ml Q15M PRN IV DECREASED GLUCOSE Last administered on 04/06/17 12:47; Admin Dose 25 ML; Start 04/05/17 at 23:30 Dextrose (D50w Syringe) 50 ml Q15M PRN IV DECREASED GLUCOSE Last administered on 04/07/17 07:58; Admin Dose 50 ML; Start 04/05/17 at 23:30 Glucagon (Glucagen) 1 mg Q15M PRN IM DECREASED GLUCOSE; Start 04/05/17 at 23: 30 Glucose (Glutose) 15 gm Q15M PRN BUCCAL DECREASED GLUCOSE; Start 04/05/17 at 23:30 Pantoprazole (Protonix Iv) 40 mg DAILY@06 IV Last administered on 04/10/17 05 :18; Admin Dose 40 MG; Start 04/06/17 at 06:00 Ondansetron HCl 4 mg 4 mg Q4H PRN IV NAUSEA AND/OR VOMITING Last administered on 04/06/17 02:18; Admin Dose 4 MG; Start 04/05/17 at 23:30 Vancomycin HCl 100 ml @ 100 mls/hr Q24H IVPB Last administered on 04/09/17 16:53; Admin Dose 100 MLS/HR; Start 04/07/17 at 16:30 Levofloxacin/ Dextrose 100 ml @ 100 mls/hr Q48H IVPB Last administered on 23:31; Admin Dose 100 MLS/HR; Start 04/07/17 at 23:00 Dextrose (D10w) 1,000 ml @ 20 mls/hr Q24H IV Last administered on 04/10/17 01:26; Admin Dose 20 MLS/HR; Start 04/07/17 at 08:30 Diagnostic Test (Pha) 1 ea 1 ea 02 XX ; Start 04/08/17 at 02:00 Ferric Sodium Gluconate Complex/ Sodium Chloride (Ferrlecit/NS) 110 ml @ 110 mls/hr Q24H IVPB Last administered on 04/09/17 12:39; Admin Dose 110 MLS/HR; Start 04/08/17 at 10:00; Stop 04/12/17 at 10:59 Cyanocobalamin (Vitamin B12 Inj) 1,000 mcg DAILY IM Last administered on 10:08; Admin Dose 1,000 MCG; Start 04/08/17 at 09:00 Spironolactone (Aldactone) 25 mg DAILY PO Last administered on 04/09/17 09:30 ; Admin Dose 25 MG; Start 04/09/17 at 09:30 Levothyroxine Sodium (Synthroid) 137 mcg DAILY PO ; Start 04/10/17 at 09:00 Folic Acid (Folic Acid) 1 mg DAILY PO Last administered on 04/09/17t 09:30; Admin Dose 1 MG; Start 04/09/17 at 09:30 Bumetanide (Bumex) 1 mg DAILY PO ; Start 04/10/17 at 09:00 PAO FERGUSON MD Apr 10, 2017 08:46
[2017-04-10] MEDS ORDERED: LEVOTHYROXINE 137 MCG TAB PO SCH (09:00)
[2017-04-10] MEDS: SALMETEROL/FLUTICASONE 250/50 INHA INH SCH (09:00)
[2017-04-10] MEDS ORDERED: BUMETANIDE 1 MG TAB PO SCH (09:00)
[2017-04-10] MEDS ORDERED: LIDOCAINE 1% (MPF) 5 ML VIAL ONE (09:11)
[2017-04-10] MEDS: INSULIN ASPART [NOVOLOG] 3 ML PEN SC SCH ×3 (09:13→18:23)
--- NOTE | 2017-04-10 09:31 | CONS ---
Date/Time of Note Date/Time of Note DATE: 04/10/17 TIME: 09:29 Assessment/Plan Assessment/Plan Chief Complaint/Hosp Course Acute on chronic diastolic heart failure: EF normal. Improved Mod-severe TR: likely more severe though not well seen. ?worse after PPM placement. 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 Cirrhosis c/b ascites: s/p paracentesis with 10L removed 04/06 Anemia: concern for bleed. Did not agree to endoscopy. Hgb stable CAD s/p CABG PPM for SSS ([facility] 06/2015) Chronic afib not on anticoagulation presumably due to cirrhosis CKD HTN -bumex 1mg PO daily for better absorbability in setting of right heart failure with severe TR -continue ASA, coreg, isordil/hydralazine Problems: Consultation Date/Type/Reason Admit Date/Time Apr 05, 2017 at 21:03 Initial Consult Date 04/08/17 Type of Consultation: Cardiology Referring Provider: PAO FERGUSON MD 24 HR Interval Summary Free Text/Dictation Paracentesis delayed until today. Plan for d/c after Exam/Review of Systems Vital Signs Vitals Vital Signs Date Time Temp Pulse Resp B/P Pulse Ox O2 Delivery O2 Flow Rate FiO2 04/10/17 07:47 97.4 65 18 138/60 95 04/08/17 20:00 Nasal Cannula 2.0 Intake and Output 04/09/17 04/09/17 04/10/17 14:59 22:59 06:59 Intake Total 850 ml 120 ml Output Total 3 ml 150 ml Balance 847 ml -30 ml Exam Receiving paracentesis Results Result Diagram: 04/09/17 0613 04/09/17 0613 Results 24 hrs Laboratory Tests Test 04/09/17 12:40 04/09/17 15:15 04/09/17 17:47 04/09/17 20:49 Bedside Glucose 132 172 192 Vancomycin Level Trough 12.3 Test 04/10/17 01:32 04/10/17 07:49 Bedside Glucose 167 159 Medications Medications Current Medications Amlodipine Besylate (Norvasc) 5 mg DAILY PO Last administered on 04/09/17 10: 07; Admin Dose 5 MG; Start 04/06/17 at 09:00 Aspirin (Halfprin) 81 mg DAILY PO Last administered on 04/09/17 10:07; Admin Dose 81 MG; Start 04/06/17 at 09:00 Atorvastatin Calcium (Lipitor) 20 mg DAILY PO Last administered on 04/09/17 10:07; Admin Dose 20 MG; Start 04/06/17 at 09:00 Carvedilol (Coreg) 6.25 mg BID PO Last administered on 04/09/17 10:07; Admin Dose 6.25 MG; Start 04/05/17 at 23:00 Ergocalciferol (Drisdol) 50,000 unit Q14D PO Last administered on 04/05/17 23 :42; Admin Dose 50,000 UNIT; Start 04/05/17 at 23:00 Hydralazine HCl (Apresoline) 25 mg TID PO Last administered on 04/09/17 12:42 ; Admin Dose 25 MG; Start 04/06/17 at 09:00 Isosorbide Dinitrate (Isordil) 20 mg TID PO Last administered on 04/09/17 12: 39; Admin Dose 20 MG; Start 04/06/17 at 09:00 Linagliptin (Tradjenta) 5 mg DAILY PO Last administered on 04/09/17 10:06; Admin Dose 5 MG; Start 04/06/17 at 09:00 Salmeterol Xinafoate/ Fluticasone (Advair 250/50 Diskus) 1 inh BID INH Last administered on 04/09/17 20:53; Admin Dose 1 INH; Start 04/05/17 at 23:00 Glucose (Glutose) 15 gm Q15M PRN PO DECREASED GLUCOSE; Start 04/05/17 at 23:30 Glucose (Glutose) 22.5 gm Q15M PRN PO DECREASED GLUCOSE; Start 04/05/17 at 23: 30 Dextrose (D50w Syringe) 25 ml Q15M PRN IV DECREASED GLUCOSE Last administered on 04/06/17 12:47; Admin Dose 25 ML; Start 04/05/17 at 23:30 Dextrose (D50w Syringe) 50 ml Q15M PRN IV DECREASED GLUCOSE Last administered on 04/07/17 07:58; Admin Dose 50 ML; Start 04/05/17 at 23:30 Glucagon (Glucagen) 1 mg Q15M PRN IM DECREASED GLUCOSE; Start 04/05/17 at 23: 30 Glucose (Glutose) 15 gm Q15M PRN BUCCAL DECREASED GLUCOSE; Start 04/05/17 at 23:30 Pantoprazole (Protonix Iv) 40 mg DAILY@06 IV Last administered on 04/10/17 05 :18; Admin Dose 40 MG; Start 04/06/17 at 06:00 Ondansetron HCl 4 mg 4 mg Q4H PRN IV NAUSEA AND/OR VOMITING Last administered on 04/06/17 02:18; Admin Dose 4 MG; Start 04/05/17 at 23:30 Vancomycin HCl 100 ml @ 100 mls/hr Q24H IVPB Last administered on 04/09/17 16:53; Admin Dose 100 MLS/HR; Start 04/07/17 at 16:30 Levofloxacin/ Dextrose 100 ml @ 100 mls/hr Q48H IVPB Last administered on 23:31; Admin Dose 100 MLS/HR; Start 04/07/17 at 23:00 Dextrose (D10w) 1,000 ml @ 20 mls/hr Q24H IV Last administered on 04/10/17 01:26; Admin Dose 20 MLS/HR; Start 04/07/17 at 08:30 Diagnostic Test (Pha) 1 ea 1 ea 02 XX ; Start 04/08/17 at 02:00 Ferric Sodium Gluconate Complex/ Sodium Chloride (Ferrlecit/NS) 110 ml @ 110 mls/hr Q24H IVPB Last administered on 04/09/17 12:39; Admin Dose 110 MLS/HR; Start 04/08/17 at 10:00; Stop 04/12/17 at 10:59 Cyanocobalamin (Vitamin B12 Inj) 1,000 mcg DAILY IM Last administered on 10:08; Admin Dose 1,000 MCG; Start 04/08/17 at 09:00 Spironolactone (Aldactone) 25 mg DAILY PO Last administered on 04/09/17 09:30 ; Admin Dose 25 MG; Start 04/09/17 at 09:30 Levothyroxine Sodium (Synthroid) 137 mcg DAILY PO ; Start 04/10/17 at 09:00 Folic Acid (Folic Acid) 1 mg DAILY PO Last administered on 04/09/17 09:30; Admin Dose 1 MG; Start 04/09/17 at 09:30 Bumetanide (Bumex) 1 mg DAILY PO ; Start 04/10/17 at 09:00 ROSY CHAN Apr 10, 2017 09:31
--- NOTE | 2017-04-10 09:57 | RADRPT ---
PROCEDURE: Ultrasound guided paracentesis. CLINICAL INDICATION: Ascites COMPARISON: Abdominal ultrasound dated April 06, 2017 TECHNIQUE: The risks, benefits, and alternatives were explained to the patient, including but not limited to bl eeding, infection, pain, visceral or vascular damage, shock, and . The patient understood the risks and the alternatives and wished to proceed with the procedure. Informed written consent was o btained. A procedural time out was performed. The patient's name, date of , and procedure to b e performed were verified. Utilizing ultrasound guidance, optimal location for entry to the peritoneal cavity was ascertained. The overlying skin was prepped and draped in the usual sterile fashion. Approximately 10 ml of 1% Xylocaine was injected locally for pain control. Using ultrasound guidance, a Yueh catheter was int roduced into the peritoneal cavity in the right lower quadrant without difficulty. FINDINGS: Initial images demonstrate ascites. Approximately 10 liters of serous fluid was aspirated and disca rded. The patient tolerated the procedure well without complication. IMPRESSION: 1. Successful ultrasound-guided paracentesis. RPTAT: UU .Joaquin Sutton MD, MD Date Time Electronically viewed and signed by .Joaquin Sutton MD, on 04/10/2017 09:56 .K/
[2017-04-10] MEDS: SPIRONOLACTONE 25 MG TAB PO SCH (10:50)
[2017-04-10] MEDS: LINAGLIPTIN 5 MG TABLET PO SCH (10:50)
[2017-04-10] MEDS: CYANOCOBALAMIN 1000 MCG INJ IM SCH (10:51)
[2017-04-10] MEDS: ASPIRIN (EC) 81 MG TAB PO SCH (10:51)
[2017-04-10] MEDS: ATORVASTATIN 20 MG TAB PO SCH (10:51)
[2017-04-10] MEDS: FOLIC ACID 1 MG TAB PO SCH (10:51)
[2017-04-10] MEDS: ISOSORBIDE DINITRATE 20 MG TAB PO SCH ×2 (10:51→13:00)
[2017-04-10] MEDS: AMLODIPINE 5 MG TAB PO SCH (10:51)
--- NOTE | 2017-04-10 10:52 | CONS ---
Date/Time of Note Date/Time of Note DATE: 04/10/17 TIME: 10:52 Consultation Date/Type/Reason Admit Date/Time Apr 05, 2017 at 21:03 Type of Consultation: [facility] Referring Provider: PAO FERGUSON MD Exam/Review of Systems Vital Signs Vitals Vital Signs Date Time Temp Pulse Resp B/P Pulse Ox O2 Delivery O2 Flow Rate FiO2 04/10/17 09:45 65 04/10/17 07:47 97.4 18 138/60 95 04/08/17 20:00 Nasal Cannula 2.0 Intake and Output 04/09/17 04/09/17 04/10/17 14:59 22:59 06:59 Intake Total 850 ml 120 ml Output Total 3 ml 150 ml Balance 847 ml -30 ml Results Result Diagram: 04/09/1713 04/09/1713 Results 24 hrs Laboratory Tests Test 04/09/17 12:40 04/09/17 15:15 04/09/17 17:47 04/09/17 20:49 Bedside Glucose 132 172 192 Vancomycin Level Trough 12.3 Test 04/10/17 01:32 04/10/17 07:49 Bedside Glucose 167 159 Medications Medications Current Medications Amlodipine Besylate (Norvasc) 5 mg DAILY PO Last administered on 04/09/17 10: 07; Admin Dose 5 MG; Start 04/06/17 at 09:00 Aspirin (Halfprin) 81 mg DAILY PO Last administered on 04/09/17 10:07; Admin Dose 81 MG; Start 04/06/17 at 09:00 Atorvastatin Calcium (Lipitor) 20 mg DAILY PO Last administered on 04/09/17 10:07; Admin Dose 20 MG; Start 04/06/17 at 09:00 Carvedilol (Coreg) 6.25 mg BID PO Last administered on 04/09/17 10:07; Admin Dose 6.25 MG; Start 04/05/17 at 23:00 Ergocalciferol (Drisdol) 50,000 unit Q14D PO Last administered on 04/05/17 23 :42; Admin Dose 50,000 UNIT; Start 04/05/17 at 23:00 Hydralazine HCl (Apresoline) 25 mg TID PO Last administered on 04/09/17 12:42 ; Admin Dose 25 MG; Start 04/06/17 at 09:00 Isosorbide Dinitrate (Isordil) 20 mg TID PO Last administered on 04/09/17 12: 39; Admin Dose 20 MG; Start 04/06/17 at 09:00 Linagliptin (Tradjenta) 5 mg DAILY PO Last administered on 04/09/17 10:06; Admin Dose 5 MG; Start 04/06/17 at 09:00 Salmeterol Xinafoate/ Fluticasone (Advair 250/50 Diskus) 1 inh BID INH Last administered on 04/09/17 20:53; Admin Dose 1 INH; Start 04/05/17 at 23:00 Glucose (Glutose) 15 gm Q15M PRN PO DECREASED GLUCOSE; Start 04/05/17 at 23:30 Glucose (Glutose) 22.5 gm Q15M PRN PO DECREASED GLUCOSE; Start 04/05/17 at 23: 30 Dextrose (D50w Syringe) 25 ml Q15M PRN IV DECREASED GLUCOSE Last administered on 04/06/17 12:47; Admin Dose 25 ML; Start 04/05/17 at 23:30 Dextrose (D50w Syringe) 50 ml Q15M PRN IV DECREASED GLUCOSE Last administered on 04/07/17 07:58; Admin Dose 50 ML; Start 04/05/17 at 23:30 Glucagon (Glucagen) 1 mg Q15M PRN IM DECREASED GLUCOSE; Start 04/05/17 at 23: 30 Glucose (Glutose) 15 gm Q15M PRN BUCCAL DECREASED GLUCOSE; Start 04/05/17 at 23:30 Pantoprazole (Protonix Iv) 40 mg DAILY@06 IV Last administered on 04/10/17 05 :18; Admin Dose 40 MG; Start 04/06/17 at 06:00 Ondansetron HCl 4 mg 4 mg Q4H PRN IV NAUSEA AND/OR VOMITING Last administered on 04/06/17 02:18; Admin Dose 4 MG; Start 04/05/17 at 23:30 Vancomycin HCl 100 ml @ 100 mls/hr Q24H IVPB Last administered on 04/09/17 16:53; Admin Dose 100 MLS/HR; Start 04/07/17 at 16:30 Levofloxacin/ Dextrose 100 ml @ 100 mls/hr Q48H IVPB Last administered on 23:31; Admin Dose 100 MLS/HR; Start 04/07/17 at 23:00 Dextrose (D10w) 1,000 ml @ 20 mls/hr Q24H IV Last administered on 04/10/17 01:26; Admin Dose 20 MLS/HR; Start 04/07/17 at 08:30 Diagnostic Test (Pha) 1 ea 1 ea 02 XX ; Start 04/08/17 at 02:00 Ferric Sodium Gluconate Complex/ Sodium Chloride (Ferrlecit/NS) 110 ml @ 110 mls/hr Q24H IVPB Last administered on 04/09/17 12:39; Admin Dose 110 MLS/HR; Start 04/08/17 at 10:00; Stop 04/12/17 at 10:59 Cyanocobalamin (Vitamin B12 Inj) 1,000 mcg DAILY IM Last administered on 10:08; Admin Dose 1,000 MCG; Start 04/08/17 at 09:00 Spironolactone (Aldactone) 25 mg DAILY PO Last administered on 04/09/17 09:30 ; Admin Dose 25 MG; Start 04/09/17 at 09:30 Levothyroxine Sodium (Synthroid) 137 mcg DAILY PO ; Start 04/10/17 at 09:00 Folic Acid (Folic Acid) 1 mg DAILY PO Last administered on 04/09/17 09:30; Admin Dose 1 MG; Start 04/09/17 at 09:30 Bumetanide (Bumex) 1 mg DAILY PO ; Start 04/10/17 at 09:00 JOSE R CANCINO MD Apr 10, 2017 10:52
[2017-04-10] MEDS: SOD FERRIC GLUC COMPLX 125 MG in SOD CHLORIDE 0.9% 100 ML IVPB SCH (12:27)
--- NOTE | 2017-04-10 15:58 | CONS ---
Date/Time of Note Date/Time of Note DATE: 04/10/17 TIME: 15:58 Assessment/Plan Assessment/Plan Additional Assessment/Plan irrhosis of liver. 2. Massive ascites, status post paracentesis, 10 liters of fluid was removed without albumin transfusion. 3. Gallstone. 4. Nausea and vomiting. 5. Deep venous thrombosis by history. 6. Status post coronary artery bypass graft. 7. Diabetes mellitus. 8. Angioplasty. 9. Chronic obstructive pulmonary disease. 10. Hypertension 11. Anemia. 12. Status post pacemaker implantation. Plan Patient declined EGD. This was for the surveillance of esophageal varicose vein and also find out the cause of GI blood loss. Patient is a B12 deficiency needs B12 injection. Iron saturation also was low. Discussed with primary MD No acute GI bleeding noted during her stay in the hospital Consultation Date/Type/Reason Admit Date/Time Apr 05, 2017 at 21:03 Type of Consultation: [facility] Referring Provider: PAO FERGUSON MD 24 HR Interval Summary Constitutional: no complaints Exam/Review of Systems Vital Signs Vitals Vital Signs Date Time Temp Pulse Resp B/P Pulse Ox O2 Delivery O2 Flow Rate FiO2 04/10/17 15:19 97.8 65 18 125/58 93 04/08/17 20:00 Nasal Cannula 2.0 Intake and Output 04/09/17 04/09/17 04/10/17 15:00 23:00 07:00 Intake Total 850 ml 120 ml Output Total 3 ml 150 ml Balance 847 ml -30 ml Exam Constitutional: alert, oriented, well developed Psych: nl mood/affect, no complaints Head: atraumatic, normocephalic Eyes: EOMI, PERRL, nl conjunctiva, nl lids, nl sclera ENMT: nl external ears & nose, nl lips & teeth, nl nasal mucosa & septum Neck: non-tender, supple Respiratory: clear to auscultation, normal air movement Cardiovascular: nl pulses, regular rate and rhythm Gastrointestinal: nl liver, spleen, non-tender, soft Musculoskeletal: nl extremities to inspection, nl gait and stance Extremities: normal pulses Neurological: [employer] II-XII intact, nl mental status, nl speech, nl strength Skin: nl turgor, No rash or lesions Lymph: nl lymph nodes Results Result Diagram: 04/09/1761204/09/1713 Results 24 hrs Laboratory Tests Test 04/09/17 17:47 04/09/17 20:49 04/10/17 01:32 04/10/17 07:49 Bedside Glucose 172 192 167 159 Test 04/10/17 12:27 Bedside Glucose 178 Medications Medications Current Medications Amlodipine Besylate (Norvasc) 5 mg DAILY PO Last administered on 04/10/17 10: 51; Admin Dose 5 MG; Start 04/06/17 at 09:00 Aspirin (Halfprin) 81 mg DAILY PO Last administered on 04/10/17 10:51; Admin Dose 81 MG; Start 04/06/17 at 09:00 Atorvastatin Calcium (Lipitor) 20 mg DAILY PO Last administered on 04/10/17 10:51; Admin Dose 20 MG; Start 04/06/17 at 09:00 Carvedilol (Coreg) 6.25 mg BID PO Last administered on 04/10/17 10:50; Admin Dose 6.25 MG; Start 04/05/17 at 23:00 Ergocalciferol (Drisdol) 50,000 unit Q14D PO Last administered on 04/05/17 23 :42; Admin Dose 50,000 UNIT; Start 04/05/17 at 23:00 Hydralazine HCl (Apresoline) 25 mg TID PO Last administered on 04/10/17 10:50 ; Admin Dose 25 MG; Start 04/06/17 at 09:00 Isosorbide Dinitrate (Isordil) 20 mg TID PO Last administered on 04/10/17 10: 51; Admin Dose 20 MG; Start 04/06/17 at 09:00 Linagliptin (Tradjenta) 5 mg DAILY PO Last administered on 04/10/17 10:50; Admin Dose 5 MG; Start 04/06/17 at 09:00 Salmeterol Xinafoate/ Fluticasone (Advair 250/50 Diskus) 1 inh BID INH Last administered on 04/09/17 20:53; Admin Dose 1 INH; Start 04/05/17 at 23:00 Glucose (Glutose) 15 gm Q15M PRN PO DECREASED GLUCOSE; Start 04/05/17 at 23:30 Glucose (Glutose) 22.5 gm Q15M PRN PO DECREASED GLUCOSE; Start 04/05/17 at 23: 30 Dextrose (D50w Syringe) 25 ml Q15M PRN IV DECREASED GLUCOSE Last administered on 04/06/17 12:47; Admin Dose 25 ML; Start 04/05/17 at 23:30 Dextrose (D50w Syringe) 50 ml Q15M PRN IV DECREASED GLUCOSE Last administered on 04/07/17 07:58; Admin Dose 50 ML; Start 04/05/17 at 23:30 Glucagon (Glucagen) 1 mg Q15M PRN IM DECREASED GLUCOSE; Start 04/05/17 at 23: 30 Glucose (Glutose) 15 gm Q15M PRN BUCCAL DECREASED GLUCOSE; Start 04/05/17 at 23:30 Pantoprazole (Protonix Iv) 40 mg DAILY@06 IV Last administered on 04/10/17 05 :18; Admin Dose 40 MG; Start 04/06/17 at 06:00 Ondansetron HCl 4 mg 4 mg Q4H PRN IV NAUSEA AND/OR VOMITING Last administered on 04/06/17 02:18; Admin Dose 4 MG; Start 04/05/17 at 23:30 Vancomycin HCl 100 ml @ 100 mls/hr Q24H IVPB Last administered on 04/09/17 16:53; Admin Dose 100 MLS/HR; Start 04/07/17 at 16:30 Levofloxacin/ Dextrose 100 ml @ 100 mls/hr Q48H IVPB Last administered on 23:31; Admin Dose 100 MLS/HR; Start 04/07/17 at 23:00 Dextrose (D10w) 1,000 ml @ 20 mls/hr Q24H IV Last administered on 04/10/17 01:26; Admin Dose 20 MLS/HR; Start 04/07/17 at 08:30 Diagnostic Test (Pha) 1 ea 1 ea 02 XX ; Start 04/08/17 at 02:00 Ferric Sodium Gluconate Complex/ Sodium Chloride (Ferrlecit/NS) 110 ml @ 110 mls/hr Q24H IVPB Last administered on 04/10/17 12:27; Admin Dose 110 MLS/HR; Start 04/08/17 at 10:00; Stop 04/12/17 at 10:59 Cyanocobalamin (Vitamin B12 Inj) 1,000 mcg DAILY IM Last administered on 10:51; Admin Dose 1,000 MCG; Start 04/08/17 at 09:00 Spironolactone (Aldactone) 25 mg DAILY PO Last administered on 04/10/17 10:50 ; Admin Dose 25 MG; Start 04/09/17 at 09:30 Levothyroxine Sodium (Synthroid) 137 mcg DAILY PO Last administered on 12:28; Admin Dose 137 MCG; Start 04/10/17 at 09:00 Folic Acid (Folic Acid) 1 mg DAILY PO Last administered on 04/10/17 10:51; Admin Dose 1 MG; Start 04/09/17 at 09:30 Bumetanide (Bumex) 1 mg DAILY PO Last administered on 04/10/17 10:50; Admin Dose 1 MG; Start 04/10/17 at 09:00 JOSY KENNEY MD Apr 10, 2017 15:58
[2017-04-10] MEDS: VANCOMYCIN 500MG/NS (PMX) 100 ML IVPB SCH (17:52)
--- NOTE | 2017-04-10 17:52 | DS ---
Date/Time of Note Date/Time of Note DATE: 04/10/17 TIME: 17:49 Discharge Summary Admission/Discharge Info Admit Date/Time Apr 05, 2017 at 21:03 Discharge Date/Time 04/10/2017 17pm. Discharge Diagnosis 1. Drop of h/h from to 12/21- : s/p 2 units of PRBC TX. Anemia of chronic disease. 2. Elevation of creatinine 1.4 to 1.5- 1,25 3. Diabetes type 2 better controlled. 4. Gastroesophageal reflux disease. 5. Sepsis. 6. History of recurrent ERCPs- refused new GI w/u. 7. Memory impairment. 8. Urinary incontinence with hematuria and uti 9. Status post CABG. 10. Morbid obesity. 11. Status post left-sided carotid endarterectomy. 12. Hypertension. 13.Ascites- s/p 10liters of fluid removal. 14.Pannus. 15.ALOC on and off-metabolic. 16.Nausea and vomiting 17.UTI-Awaiting the culture results. 18. Fever and chills. 19.Hypoglycemia. 20.Constipation. 21.Portal hypertension. 22.S/p pacemaker implantation. 23.Memory impairment. 24.Low iron. 25.Low vit "D". 26.Low albumin. 27.Tricuspid regurgitation changed Lasix to Bumex after discussion with . Patient Condition: Fair Hx of Present Illness f/c x 2 days with n/v getting worse today. Unable to eat and to drink. Now with severe thirst. Hospital Course After second paracentesis and total more than 10 l iters of ascitic fluid removal, condition improved significantly.Will continue levoquin 500 qd x 3 more days. Home Meds Active Scripts Levofloxacin* (Levofloxacin*) 500 Mg Tablet, 500 MG PO DAILY for 3 Days, #3 TAB Prov:MAYCOL FERGUSON MD 04/10/17 Sodium Polystyrene Sulfonate* (Kayexalate*) 15 Gm/60 Ml Susp, 15 GM PO ONCE for 1 Day, #20 ML Prov:VICTOR MANUEL JOHNSTON DO 02/18/17 Aspirin* (Aspirin* EC) 81 Mg Tabec, 81 MG PO DAILY, #30 BOTTLE Prov:MAYCOL FERGUSON MD 08/09/15 Reported Medications Ergocalciferol (Vitamin D2) (VITAMIN D2) 50,000 Unit Capsule, 16655 UNIT PO Q14D , CAP 01/12/17 Linagliptin (TRADJENTA) 5 Mg Tablet, 5 MG PO DAILY, TAB 01/12/17 Salmeterol Xinaf/Fluticasone* (Advair*) 250-50 Diskus Inhaler, 1 INH INHALATION BID, #1 INHALER 01/12/17 Furosemide* (Furosemide*) 40 Mg Tablet, 40 MG PO DAILY, TAB 01/12/17 Levothyroxine Sodium* (Levothyroxine Sodium*) 125 Mcg Tablet, 125 MCG PO BEFORE BREAKFAST, #30 TAB 01/12/17 Isosorbide Dinitrate* (Isosorbide Dinitrate*) 20 Mg Tablet, 20 MG PO TID, TAB 01/12/17 Hydralazine Hcl* (Hydralazine Hcl*) 25 Mg Tab, 25 MG PO TID, #90 TAB 01/12/17 Repaglinide* (Prandin*) 2 Mg Tablet, 2 MG PO TID AC MEALS, TAB 12/26/14 Amlodipine Besylate* (Norvasc*) 5 Mg Tablet, 5 MG PO DAILY 10/09/11 Carvedilol (Coreg) 6.25 Mg Tablet, 6.25 MG PO BID 10/09/11 Atorvastatin (Lipitor) 20 Mg Tablet, 20 MG PO DAILY 10/09/11 Discontinued Scripts Levofloxacin (Levofloxacin) 500 Mg/20 Ml Solution, 500 MG PO DAILY for 3 Days, # 3 ML Prov:MAYCOL FERGUSON MD 04/10/17 Follow-up Plan Follow up to Dr. Ferguson in 7 days. Primary Care Provider Maycol Ferguson MD Time spent on discharge: > 30 minutes Pending Labs Laboratory Tests Test 04/09/17 20:49 04/10/17 01:32 04/10/17 07:49 04/10/17 12:27 Bedside Glucose 192mg/dL (70-220) 167mg/dL (70-220) 159mg/dL (70-220) 178mg/dL (70-220) MAYCOL FERGUSON MD Apr 10, 2017 17:52
[2017-04-10] MEDS ORDERED: LEVO500S PO (17:55)
--- NOTE | 2017-04-10 17:59 | PDOCDIS ---
Discharge Instructions DIAGNOSIS Discharge Diagnosis 1. Drop of h/h from to 12/21- : s/p 2 units of PRBC TX. Anemia of chronic disease. 2. Elevation of creatinine 1.4 to 1.5- 1,25 3. Diabetes type 2 better controlled. 4. Gastroesophageal reflux disease. 5. Sepsis. 6. History of recurrent ERCPs- refused new GI w/u. 7. Memory impairment. 8. Urinary incontinence with hematuria and uti 9. Status post CABG. 10. Morbid obesity. 11. Status post left-sided carotid endarterectomy. 12. Hypertension. 13.Ascites- s/p 10liters of fluid removal. 14.Pannus. 15.ALOC on and off-metabolic. 16.Nausea and vomiting 17.UTI-Awaiting the culture results. 18. Fever and chills. 19.Hypoglycemia. 20.Constipation. 21.Portal hypertension. 22.S/p pacemaker implantation. 23.Memory impairment. 24.Low iron. 25.Low vit "D". 26.Low albumin. 27.Tricuspid regurgitation changed Lasix to Bumex after discussion with . CONDITION Patient Condition: Fair HOME CARE INSTRUCTIONS: Diet Instructions: Reduced SodiumSpecial Diet: carb controlled ACTIVITY: Activity Restrictions: Slowly Increase Activity Do not operate Machinery Do not operate Power Tool Avoid Heavy Housework No Weight Bearing Bathing Restrictions: Tub Bath FOLLOW UP/APPOINTMENTS Follow-up Plan Follow up to Dr. Ferguson in 7 days. SCHOOL/WORK RELEASE May return to School/Work with: home health aid. PAO FERGUSON MD Apr 10, 2017 17:59
[2017-04-10] MEDS ORDERED: LEVO500T10 PO (18:37)
--- NOTE | 2017-04-11 18:50 | RADRPT ---
Vent Rate: 65 bpm RR Interval: 0 msec NE Interval: 0 msec QRS Duration: 160 msec QT Interval: 466 msec QTC Interval: 484 msec P-R-T [place]: 0 - 0 - 7 degrees Electronic ventricular pacemaker Electronically Signed By: Eran Hernández [id number]
== END 2017-04-10 21:11 | disposition home or self-care (01) | DRG 871 ==
LOC: E/R 19:24 → TEL 21:03
PROVIDERS: ADMIT Family Medicine; ATTEND Family Medicine
PROC: 30233N1 Transfusion of Nonautologous Red Blood Cells into Peripheral Vein, Percutaneous Approach (ICD-10-PCS; principal; 2017-04-06)
PROC: 0W9G3ZZ Drainage of Peritoneal Cavity, Percutaneous Approach (ICD-10-PCS; 2017-04-06)
PROC: 0W9G3ZZ Drainage of Peritoneal Cavity, Percutaneous Approach (ICD-10-PCS; 2017-04-10)
DX: A41.9 Sepsis, unspecified organism (principal); G93.41 Metabolic encephalopathy; I50.33 Acute on chronic diastolic (congestive) heart failure; R18.8 Other ascites; E11.22 Type 2 diabetes mellitus with diabetic chronic kidney disease; D62 Acute posthemorrhagic anemia; I27.20 Pulmonary hypertension, unspecified; I25.810 Atherosclerosis of coronary artery bypass graft(s) without angina pectoris; N39.0 Urinary tract infection, site not specified; I13.0 Hypertensive heart and chronic kidney disease with heart failure and stage 1 through stage 4 chronic kidney disease, or unspecified chronic kidney disease; E86.0 Dehydration; N18.9 Chronic kidney disease, unspecified; D63.1 Anemia in chronic kidney disease; N30.90 Cystitis, unspecified without hematuria; R32 Unspecified urinary incontinence; R11.2 Nausea with vomiting, unspecified; K21.9 Gastro-esophageal reflux disease without esophagitis; I36.1 Nonrheumatic tricuspid (valve) insufficiency; K74.60 Unspecified cirrhosis of liver
CPT/HCPCS: 36415; 36430; 71010; 80053; 80202; 81001; 82140; 82150; 82270; 82565; 82607; 82728; 82746; 82947; 82962; 83540; 83605; 83690; 83735; 84443; 84484; 84520; 85025; 85045; 85610; 85730; 86850; 86900; 86901; 86920; 87040; 87086; 87400; 90686; 93005; 93306; 96374; 97110; 97116; 97163; 97530; J1940; C9113; J0696; J1815; J1956; J2405; J2916; J3370; J3420; J3475; J7030; J7042; J7050; P9016; P9047

== ENCOUNTER 2017-06-23 07:13 | Inpatient (IN) | END 2017-06-29 19:12 | disposition home health service (06) | DRG 871 ==

== ENCOUNTER 2017-07-23 10:59 | Inpatient (IN) | END 2017-07-28 12:45 | disposition home or self-care (01) | DRG 871 ==

== ENCOUNTER 2017-11-03 00:55 | Observation (INO) | END 2017-11-05 20:17 | disposition home or self-care (01) ==